=== PATIENT | male | born 1970 | race Caucasian/White ===

== ENCOUNTER 2023-10-04 09:58 | Emergency (ER) | payer OTHER, SELFPAY ==
--- NOTE | ~2023-10-04 | XR_ITS ---
EXAMINATION: XR ANKLE, RIGHT CLINICAL INFORMATION: Injury, pain. COMPARISON: None available. TECHNIQUE: AP, lateral, and mortise views of the right ankle. FINDINGS: Chronic appearing fracture/deformity at the base of the fifth metatarsal on the lateral view. Well corticated ossific fragments adjacent to the medial malleolus, lateral malleolus and lateral surface of the calcaneus on the oblique view. Ankle mortise is in anatomic alignment. Moderate multifocal degenerative arthrosis. Small dorsal calcaneal spurs. Diffuse soft tissue swelling. XR/XR ankle RT min 3V IMPRESSION: 1. Well corticated ossific fragments adjacent to the medial malleolus, lateral malleolus and lateral surface of the calcaneus on the oblique view are indeterminate and could be sequela of prior trauma. Correlate for point tenderness. 2. Chronic fracture/deformity at the base of the fifth metatarsal. 3. Soft tissue swelling.
[2023-10-04 10:36] VITALS: BP 146/92; PULSE 72; RESP 16; TEMP 36.6; O2SAT 97; BMI 41.7
[2023-10-04] MEDS: Ibuprofen 600 MG TABLET PO (10:41)
[2023-10-04] MEDS: Acetaminophen 325 MG TABLET 975 MG PO (10:41)
--- NOTE | 2023-10-04 12:11 | ED_ITS ---
HPI - General Adult General Chief complaint: Extremity Injury, Lower Stated complaint: ankle inj at work Time Seen by Provider: 10/04/23 12:10 Source: patient Mode of arrival: ambulatory Limitations: no limitations History of Present Illness HPI narrative: Patient is a 53 year old assigned male at with no reported medical history presenting to the emergency department today with right ankle pain. 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 Patient states that he felt and heard pops in the right ankle. Patient denies any loss of consciousness or head strike. Patient denies any dizziness, lightheadedness, abdominal pain, nausea, vomiting, fever, chills, blurry vision, double vision, loss of vision, chest pain, difficulty breathing, shortness of breath, back pain, night sweats, pain with urination, increased urinary frequency, increased urinary urgency, blood in his urine or stool, syncope or a near syncopal episode, bowel incontinence, bladder incontinence, bowel retention, bladder retention, or any other complaints at this time. Onset (ago): hour(s) Location: right and lower extremity Severity: mild Severity scale (1-10): 4 Relieving factors: immobilization Exacerbating factors: movement Associated symptoms: denies other symptoms Treatments prior to arrival: none Related Data Allergies Allergy/AdvReac Type Severity Reaction Status Date / Time No Known Allergies Allergy Verified 10/04/23 10:39 Review of Systems Constitutional: Constitutional: Reports no additional constitutional complaints, Denies chills, Denies fever(s) and Denies night sweats Eyes: Eyes: Reports no additional eye complaints, Denies blurry vision, Denies change in vision, Denies diplopia, Denies eye discharge, Denies loss of vision and Denies eye pain ENT: Denies dizziness Cardiovascular: Cardiovascular: Reports no additional cardiovascular complaints, Denies chest pain, Denies lightheadedness, Denies Loss of Consciousness and Denies dyspnea Respiratory: Respiratory: Reports no additional respiratory complaints and Denies dyspnea Gastrointestinal: Gastrointestinal: Reports no additional gastrointestinal complaints, Denies abdominal pain, Denies melena, Denies hematochezia, Denies change in bowel habits and Denies change in stool character Genitourinary: Genitourinary: Reports no additional male genitourinary comp laints, Denies hematuria, Denies oliguria, Denies difficulty urinating, Denies dysuria, Denies urinary frequency, Denies urinary hesitancy, Denies urinary incontinence and Denies urinary urgency Musculoskeletal: Musculoskeletal: Reports no additional musculoskeletal complaints, Denies numbness and Denies tingling Comments: right ankle pain Neurologic: Denies dizziness, Denies loss of vision, Denies numbness and Denies tingling Psychiatric: Psychiatric: Reports no additional psychiatric complaints Endocrine: Endocrine: Reports no additional endocrine complaints Hematologic/Lymphatic: Hematologic/Lymphatic: Reports no additional hematologic/lymphatic complaints Allergic/Immunologic: Allergic/Immunologic: Reports no additional allergic/immunologic complaints PMFSH Past Medical History Attestation statement: The following information was validated with the patient. Source: old records reviewed and nursing notes reviewed Social History Social History Advance Directives: No Advance Directives Information Provided: No Physical Exam ED Vital Signs: Vital Signs - 24 hr 10/04/23 10:36 10/04/23 12:46 Temperature 97.9 F 97.9 F Pulse Rate 72 66 Respiratory Rate 16 18 Blood Pressure 146/92 H 142/90 H Pulse Oximetry 97 98 Oxygen Delivery Method Room Air Room Air BMI result Body Mass Index 41.7 Const General: cooperative, no acute distress, alert and awake Nutritional Appearance: well nourished Orientation/consciousness: patient oriented x3 Limitations: no limitations HENMT Head: Yes normal to inspection and Yes atraumatic Ears: hearing grossly normal bilaterally and external ears normal General nose exam: Normal external nose present, no nasal discharge noted and no epistaxis Face and sinus: Yes normal facial exam, No abrasion and No laceration Mouth: Normal oral and palatal mucosa present, no drooling and no muffled voice Eyes General: appearance normal, both eyes and all related structures Periorbital: periorbital findings normal Eyelids: Yes eyelids normal Conjunctivae: conjunctivae normal Pupils: Equal, round and reactive pupils present EOM: EOMs intact bilaterally Neck Neck: Yes normal visual inspection, Yes full ROM and Yes no lymphadenopathy Chest Chest palpation & inspection: normal inspection of the chest Resp Effort & Inspection: normal respiratory effort and able to speak in complete sentences GI Inspection: Yes normal to inspection Neuro General: patient oriented x3 and moves all extremities Cranial nerves: Yes Equal, round and reactive pupils present Cognition (Neuro): normal cognition Motor exam (neuro): 5/5 motor strength present throughout Sensory Exam: Normal double simultaneous stimulation for sensation Coordination: [id number] test normal Extrem Other: pain with ROM of the right ankle. Pain with palpation of the medial and lateral malleolus General: Yes normal to inspection and Yes capillary refill normal Psych Appearance: grossly normal Mental Status: mental status grossly normal Affect: normal affect Attitude: cooperative Thought process: Normal thought process present Thought content: Normal thought content present Insight: Good insight present (Psych) Medications Administered Discontinued Medications Generic Name Dose Route Start Last Admin Trade Name Kristyn PRN Reason Stop Dose Admin Acetaminophen 975 mg 10/04/23 10:39 10/04/23 10:41 Acetaminophen 325 Mg Tablet PO 10/04/23 10:40 975 mg ONCE ONE Administration Ibuprofen 600 mg 10/04/23 10:39 10/04/23 10:41 Ibuprofen 600 Mg Tablet PO 10/04/23 10:40 600 mg ONCE ONE Administration Procedures Orthopedic Splinting/Casting Injury #1: Side: right Lower Extremity Injury Location: ankle Lower Extremity Immobilizer: boot orthosis Other Orthopedic Equipment: crutches Medical Decision Making Medical Decision Making MDM Narrative: Patient is a 53 year old assigned male at with no reported medical history presenting to the emergency department today with right ankle pain. Patient's physical exam was as noted in the physical exam portion of this note. Patient's right ankle x-ray showed ossific fragments adjacent to the medial malleolus, lateral malleolus, and lateral surface of the calcaneus. Patient's clinical presentation is most consistent with right ankle ligamentous injury and associated avulsion / chip fractures. I explained my physical exam findings as well as all test results to the patient. I answered all questions asked by the patient. Patient was placed in a walking boot, without incident. Patient's PMS was intact prior to and after boot placement. I stressed the importance of the patient taking his medication as prescribed. I stressed the importance of the patient following up with his primary care provider and an orthopedic provider. I stressed the importance of the patient returning to the emergency department immediately if his symptoms were to worsen or if he were to develop any dizziness, shortness of breath, difficulty breathing, chest pain, blurry vision, loss of vision, nausea, vomiting, abdominal pain, fever, chills, back pain, or any other complaints. Patient verbalized agreement and understanding with this treatment plan and discharge. Differential Diagnosis Differential Diagnoses: The differential diagnosis associated with the presentation includes Right ankle fracture Right ankle strain Right ankle sprain Right ankle ligament injury Admission/Observation Consideration of admission/observation: Escalation of care including admission/observation considered Patient would have been admitted to the hospital had his work up had any findings where hospital admission was appropriate and his clinical presentation warranted hospital admission. Independent Interpretation I performed an independent interpretation of an: Plain X-Ray Interpretation: My interpretation is in agreement with the radiologist's impression of this imaging study. EXAMINATION: XR ANKLE, RIGHT CLINICAL INFORMATION: Injury, pain. COMPARISON: None available. TECHNIQUE: AP, lateral, and mortise views of the right ankle. FINDINGS: Chronic appearing fracture/deformity at the base of the fifth metatarsal on the lateral view. Well corticated ossific fragments adjacent to the medial malleolus, lateral malleolus and lateral surface of the calcaneus on the oblique view. Ankle mortise is in anatomic alignment. Moderate multifocal degenerative arthrosis. Small dorsal calcaneal spurs. Diffuse soft tissue swelling. XR/XR ankle RT min 3V IMPRESSION: 1. Well corticated ossific fragments adjacent to the medial malleolus, lateral malleolus and lateral surface of the calcaneus on the oblique view are indeterminate and could be sequela of prior trauma. Correlate for point tenderness. 2. Chronic fracture/deformity at the base of the fifth metatarsal. 3. Soft tissue swelling. Dictated By: Loyda Terrazas Signed By: Electronically signed by Loyda Terrazas 10/04/23 1147 Radiology Impression Discussion of test interpretation with radiology: I have reviewed the radiologist's reading. Discharge Plan Discharge Clinical Impression: Ankle fracture Patient Disposition: Home, Self-Care Instructions: Ankle Fracture (DC), Crutch Instructions (ED) Additional Instructions: Follow up with your primary care provider and an orthopedic provider. Return to the emergency department immediately if your symptoms worsen or if you develop any dizziness, shortness of breath, difficulty breathing, chest pain, blurry vision, loss of vision, nausea, vomiting, abdominal pain, fever, chills, back pain, or any other complaints. Referrals: [facility] Family Medicine [Provider Group] (Call to establish and follow up with a primary care provider. If you already have a primary care provider, please follow up with them.) [facility] [Provider Group] [facility] [Provider Group] [facility] [Provider Group] (Call to establish and follow up with an orthopedic provider.) [facility] [Provider Group] (Call to establish and follow up with [facility].) Stand Alone Forms: Work/School Release Interventions: ED Discharge Assessment Last Done: 10/04/23 12:46 Discharge Date/Time: 10/04/23 12:47 Print Language: Malian
[2023-10-04 12:46] VITALS: BP 142/90; PULSE 66; RESP 18; TEMP 36.6; O2SAT 98
== END 2023-10-04 12:47 | disposition home or self-care (01) ==
PROVIDERS: Emergency Provider Student in an Organized Health Care Education/Training Program; PCP Physician Assistant
DX: S82.891A Other fracture of right lower leg, initial encounter for closed fracture (principal); X50.1XXA Overexertion from prolonged static or awkward postures, initial encounter; Y93.89 Activity, other specified; Y92.812 Truck as the place of occurrence of the external cause; Y99.0 Civilian activity done for income or pay
CPT/HCPCS: 73610; 99283

== ENCOUNTER 2023-10-11 07:01 | Outpatient (REF) | payer OTHER, SELFPAY ==
--- NOTE | ~2023-10-11 | XR_ITS ---
EXAMINATION: XR ANKLE, RIGHT CLINICAL INFORMATION: Right ankle pain COMPARISON: 10/04/2023 TECHNIQUE: AP, lateral, and mortise views of the right ankle. FINDINGS: Minor fragmentation adjacent to the medial and lateral malleolus appears chronic. The mortise is intact. No evidence for an acute fracture, dislocation or destructive process. There is chronic fragmentation seen as well, at the base of the fifth metatarsal. There is mild spurring, along the posterior calcaneus at the insertion of the tendon. XR/XR ankle RT min 3V IMPRESSION: Chronic changes noted.
--- NOTE | ~2023-10-11 | XR_ITS ---
EXAMINATION: XR FOOT, RIGHT CLINICAL INFORMATION: Right-sided foot pain COMPARISON: None available. TECHNIQUE: AP, lateral, and oblique views of the right foot. FINDINGS: Chronic deformity base of the right fifth metatarsal noted. The MTP joints are preserved. New fractures are not seen. There is mild spurring along the posterior margin of the calcaneus, at the insertion of the Achilles tendon. XR/XR foot RT 2V IMPRESSION: No acute findings.
== END 2023-10-11 07:02 | disposition home or self-care (01) ==
LOC: HO.HOSX 07:01
PROVIDERS: Visit Provider Physician Assistant
DX: S93.401A Sprain of unspecified ligament of right ankle, initial encounter (principal)
CPT/HCPCS: 73610; 73620; 99202

== ENCOUNTER 2023-10-11 08:17 | Outpatient (AMB) | payer OTHER, SELFPAY ==
[2023-10-11 08:18] VITALS: BMI 41.6
--- NOTE | 2023-10-11 08:18 | A.OFFVIS_ITS ---
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 He states he is using motrin for the pain with good relief. He has been given the boot at the ED which he states he feels stable in. He is also having a little numbness and tingling in his toes. 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 He was seen at ED where he was given a boot which provided him relief. He currently states he has pain in his right ankle and rates the pain as 3 on the scale of 0-10. He also c/o mild numbness and tingling in his toes. He finds good relief with Motrin. 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 Review of Systems Const All systems reviewed & are unremarkable except as noted in HPI and below Physical Exam Vital Signs: BMI result Body Mass Index 41.6 Const General: cooperative, healthy appearing, comfortable, no acute distress, well developed and alert Orientation/consciousness: patient oriented x3 HEENT Head: Yes normal to inspection, Yes normocephalic and Yes atraumatic Eyes General: appearance normal, both eyes and all related structures Resp Effort & Inspection: normal respiratory effort and able to speak in complete sentences Cardio Rate: regular rate Peripheral pulses: Peripheral pulses 2+ throughout GI Palpation (GI): Soft to palpation Skin Lesions: no lesions Rashes: no rashes Neuro General: patient oriented x3 Extrem Other: Right ankle: Normal to inspection with mild swelling over the lateral malleolus with tenderness along the soft tissues. No discomfort along the posterior aspect of the ankle, no deformity along the Achilles tendon, negative Morrison?s. No pain along the syndesmosis or anterior tibia. He does have mild tenderness along the base of the 5th metatarsal. No laxity, NVI. Results Reviewed Results Reviewed: XR ankle RT min 3V IMPRESSION: 1. Well corticated ossific fragments adjacent to the medial malleolus, lateral malleolus and lateral surface of the calcaneus on the oblique view are indeterminate and could be sequela of prior trauma. Correlate for point tenderness. 2. Chronic fracture/deformity at the base of the fifth metatarsal. 3. Soft tissue swelling. Xrays were obtained in the office today and personally reviewed by me of the right foot show age indeterminate fracture at the base of the 5th metatarsal. Assessment & Plan Assessment & Plan (1) Right ankle sprain: Code(s): S93.401A - Sprain of unspecified ligament of right ankle, initial encounter Category: Medical Plan We discussed options which include PT, NSAIDs and continued use of the boot. He will proceed with PT and NSAIDs. WBAT with the boot and wean from the boot as symptoms allow with PT. If symptoms persist, the patient will contact me, otherwise, PRN. Orders: Orders PT Evaluation and Treatment 10/11/23 S93.401A - Sprain of unspecified ligament of right ankle, initial encounter XR ankle RT min 3V 10/11/23 M25.571 - Pain in right ankle and joints of right foot XR foot RT 2V 10/11/23 M79.671 - Pain in right foot Patient Instructions: Scribed for July Webb PA-C, by Erik Hill medical records technician, on 10/11/2023 at 8:15 AM EST. I, July Webb PA-C, have personally reviewed and agree with the information entered by the scribe. Coding Level of Care Code New Pt Level 3 (13895) Diagnoses Right ankle sprain S93.401A
== END 2023-10-11 12:14 | disposition home or self-care (01) ==
PROVIDERS: PCP Physician Assistant; Visit Provider Physician Assistant
DX: S93.401A Sprain of unspecified ligament of right ankle, initial encounter (principal)
CPT/HCPCS: 99203

== ENCOUNTER 2023-11-12 09:00 | Outpatient (RCR) | payer OTHER, SELFPAY ==
--- NOTE | 2023-10-24 10:46 | MHC.PT.EP ---
[facility] [place] Office [place] Office [place] Office [address] Tyson Villafuerte [address] [phone] F: [phone] F: [phone] F: [phone] F: [phone] Physical Therapy Plan of Care Date of Evaluation: 10/22/23 Date of Surgery: Diagnosis: R ligament ankle sprain, achilles Assessment: Pt is a 53yo male referred to PT for R ankle sprain with achilles pain. Skilled PT indicated to progress patient safely through rehabilitation of ankle with goal to return to work with reduced risk for re-injury. Current impairments that will be addressed in POC include pain/swelling, reduced ROM and strength, abnormal gait. Pt is motivated to participate and in agreement with POC. Frequency and Duration: The patient will be seen 2x/week, x 4 weeks Short Term Goals: 1. Improve AROM R ankle 5 degrees DF in 2 weeks. 2. Improve R ankle eversion MMT 1/2 grade in 2 weeks. 3. In 2 weeks, patient will be I with phase 1 HEP including gentle stretching, and ankle exercise. 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 Pt will be able to go up and down steps without difficulty in 4 weeks with 1 rail. 2. In 4 weeks, improve LEFS score by >= 10 points indicating reduced pain and improved function overall. 3. In 4 weeks, patient will be able to ambulate with normal gait pattern and maintain SLS x 10 sec R LE. Treatment Plan: Modalities to reduce pain, spasms and effusion. Manual therapy to restore motion and function. Therapeutic exercise to improve strength and flexibility. Neuromuscular re-education for posture and balance. Therapeutic activities to return to functional activities of daily living. Electronically signed by: Mary Lopez PT, DPT Please sign and return to therapist. Thank you for your referral.
--- NOTE | 2024-01-08 11:32 | MHC.PT.DC ---
[facility] [place] Office [place] [facility] [place] [facility] [address] Tyson Villafuerte [address] [phone] F: [phone] F: [phone] F: [phone] F: [phone] Physical Therapy Discharge Report Diagnosis: R ligament ankle sprain, achilles Date of Surgery: Date of Evaluation: 10/22/23 Date of Discharge: 12/10/23 Treatments to Date: 6 Cancellations to Date: 2 No Shows to Date: Discharge Status: Independent with HEP Recommend MD Follow-up Discharge Summary: Pt participated in 6 PT treatment sessions for R ankle pain s/p injury at work. Addressed ankle stability, and maintaining ROM with gentle exercises as he was still in protection phase after injury. Pt continued to have pain and instability and reverted back to wearing walking boot until f/u with ortho to discuss MRI scheduled on 12/03/23. Pt did not return to PT following treatment on 11/12/23. D/C at this time due to patient reaching a plateau at this time and awaiting results from MRI prior to resuming PT. Thank you for this referral. Electronically signed by: Mary Lopez PT, DPT Please sign and return to therapist. Thank you for your referral.
== END 2024-01-08 11:41 | disposition home or self-care (01) ==
LOC: HO.PT 09:00
PROVIDERS: PCP Physician Assistant; Visit Provider Physician Assistant
DX: S93.401D Sprain of unspecified ligament of right ankle, subsequent encounter (principal)
CPT/HCPCS: 97035; 97110; 97116; 97140; 97161

== ENCOUNTER 2023-11-13 12:59 | Outpatient (AMB) | payer OTHER, SELFPAY ==
--- NOTE | 2023-11-13 13:16 | MHC.OFFVIS ---
Vital Signs 11/13/23 13:24 Height 6 ft Weight 307 lb BMI 41.6 Intake Visit Reasons: OV-Right ankle injury-DOI 10/04/23-follow up Intake Note: Heath a 53 year old male who presents today for a follow up s/p right ankle injury, DOI 10/04/23. Patient reports that he has been attending PT for about 4 weeks and continues to have soreness in his achilles area. He was advised by PT to return wearing boot and follow up with orthopedics. He states his pain has improved since his injury howevery however not. pain burning achilles. Allergies No Known Allergies Allergy (Verified 11/13/23 13:25) HPI HPI OV-Right ankle injury-DOI 10/04/23-follow up: Details: 53-year-old male who returns to the office today for a follow-up of right ankle injury, 10/04/23. He states he has improvement in his pain however he continues to have a burning pain and soreness in his Achilles area that is aggravated with ambulation and weight bearing. He has been attending physical therapy for 4 weeks without benefits. He was advised by PT to return wearing the boot and follow up with our office. 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 No swelling but tenderness along the calcaneus at the incision point at Achilles. No palpable defect over the Achilles. Negative Seadrift. NVI. Assessment & Plan Assessment & Plan (1) Right ankle sprain: Code(s): S93.401A - Sprain of unspecified ligament of right ankle, initial encounter Category: Medical (2) Right Achilles tendinitis: Code(s): M76.61 - Achilles tendinitis, right leg Category: Medical Plan He will continue weight bearing as tolerated. He was given inserts in PT which I encourage using and he will start using the thickest wedge and layer down each week with stability to avoid to be stressed out at Achilles. An MRI of the right ankle was also ordered to further evaluate and assess the Achilles tendon and surrounding structures. He will remain out of work till I see him back once the scan is complete. Orders: Orders MR ankle RT wo con Today M76.61 - Achilles tendinitis, right leg, S93.401A - Sprain of unspecified ligament of right ankle, initial encounter Patient Instructions: Scribed for July Webb PA-C, by Erik Hill medical associate, on 11/13/2023 at 1:00 PM EST.? I, July Webb PA-C, have personally reviewed and agree with the information entered by the scribe. Coding Level of Care Code Est Pt Level 3 (62556) Diagnoses Right ankle sprain S93.401A Right Achilles tendinitis M76.61
[2023-11-13 13:24] VITALS: BMI 41.6
== END 2023-11-13 13:40 | disposition home or self-care (01) ==
PROVIDERS: PCP Physician Assistant; Visit Provider Physician Assistant
DX: S93.401A Sprain of unspecified ligament of right ankle, initial encounter (principal); M76.61 Achilles tendinitis, right leg
CPT/HCPCS: 99213

== ENCOUNTER → 2023-11-13 12:59 | Outpatient (BNVA) | payer OTHER, SELFPAY | PROVIDERS: PCP Physician Assistant; Visit Provider Physician Assistant ==

== ENCOUNTER 2023-12-03 07:03 | Outpatient (REF) | payer OTHER, SELFPAY ==
--- NOTE | ~2023-12-03 | MR_ITS ---
EXAMINATION: MR ANKLE WITHOUT CONTRAST, RIGHT CLINICAL INFORMATION: Achilles tendinitis. COMPARISON: Right ankle and foot radiographs dated 10/11/2023. TECHNIQUE: MRI of the ankle was performed using routine sequences on a high-field scanner. FINDINGS: ACHILLES TENDON: Achilles tendon is thickened (1 cm) at the insertion on the calcaneus with a small longitudinal partial tear of the more lateral undersurface fibers involving approximately 5-10% of the tendon cross-section. There is associated retrocalcaneal bursitis and mild enthesopathic spurring. Mild paratenonitis. OTHER TENDONS: The peroneus longus is thinned and irregular at its distal, plantar segment, most consistent with a chronic partial tear. The tendon is thickened proximally between the peroneal tubercle and calcaneus, consistent with a site of tendinosis. Mild peroneus brevis tendinosis distal to the peroneal tubercle. Extensor and medial flexor tendons are normal. LIGAMENTS: Anterior talofibular ligament is absent with a small osseous fragment at the anterior margin of the lateral malleolus, most consistent with chronic changes of a complete ligament tear. Calcaneofibular and posterior talofibular ligaments are intact. Distal tibiofibular, deltoid, and spring ligaments are normal. BONE AND ARTICULAR CARTILAGE: Moderate size marginal osteophytes are present at the talocrural joint. There is mild nonuniform chondral thinning at the anterior third of the tibial plafond and at the posteromedial and posterolateral margins of the talar dome. More minimal osteoarthritis in the subtalar joint at the posterior facet. Chopart joint is unremarkable. There is a chronic osseous fragment at the fifth metatarsal base which may correspond to an old avulsion fracture. The margins of this fragment are irregular and hypertrophied with associated edema signal. No acute fractures are identified in this region. There is uvgs-py-cwzdzvye multifocal osteoarthritis in the midfoot at the tarsometatarsal joints, characterized by cartilage loss with marginal osteophytes and subchondral cystic change. There is degenerative arthritis at the articulation between the metatarsal bases. Cortical sclerosis and thickening are evident at the fourth metatarsal shaft with associated intraosseous edema, partially imaged on this study, potentially the result of an old stress fracture. JOINT FLUID AND SOFT TISSUES: No joint effusion. Subcutaneous soft tissues are normal. PLANTAR FASCIA: Normal. SINUS TARSI AND TARSAL TUNNEL: Normal. MR/MR ankle RT wo con IMPRESSION: 1. Moderate Achilles tendinosis with a small longitudinal partial tear at the insertion. 2. 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 3. Chronic partial tear of the peroneus longus tendon with mild peroneus brevis tendinosis. 4. 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 5. Chronic osseous fragment at the fifth metatarsal base is likely due to an old avulsion fracture.
== END 2023-12-03 07:04 | disposition home or self-care (01) ==
LOC: HO.MRI 07:03
PROVIDERS: PCP Physician Assistant; Visit Provider Physician Assistant
DX: S93.401A Sprain of unspecified ligament of right ankle, initial encounter (principal); M76.61 Achilles tendinitis, right leg
CPT/HCPCS: 73721

== ENCOUNTER 2023-12-24 14:05 | Outpatient (AMB) | payer OTHER, SELFPAY ==
--- NOTE | 2023-12-24 14:35 | A.OFFVIS_ITS ---
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 Review of Systems Const All systems reviewed & are unremarkable except as noted in HPI and below Physical Exam Resp Effort & Inspection: normal respiratory effort and able to speak in complete sentences Telehealth Telehealth Telehealth Platform: Telephone Location of provider rendering services: practice address Location of patient: address on file Patient Identification confirmed using: Name, : Yes Telehealth method: voice only Patient verbally consented to treatment: Yes Patient verbally consented to billing insurance company: Yes Patient informed of any privacy concerns related to visit: Yes Minutes spent on Phone/Video with Pt.: 10 Results Reviewed Results Reviewed: MR ankle RT wo con 12/03/23 IMPRESSION: 1. Moderate Achilles tendinosis with a small longitudinal partial tear at the insertion. 2. 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 3. Chronic partial tear of the peroneus longus tendon with mild peroneus brevis tendinosis. 4. 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 5. Chronic osseous fragment at the fifth metatarsal base is likely due to an old avulsion fracture. Assessment & Plan Assessment & Plan (1) Right Achilles tendinitis: Code(s): M76.61 - Achilles tendinitis, right leg Category: Medical (2) Right ankle sprain: Code(s): S93.401A - Sprain of unspecified ligament of right ankle, initial encounter Category: Medical Plan We discussed options the restults of the MRI findings along with options. I explained the extent of the tendon and ligament injuries and I recommend PT to work on strength and stability to improve functional ability. If symptoms persist or worsen I would recommend referral to foot and ankle specialist. he is content with this plan. Coding Level of Care Code Tele Est Pt Level 3 (80039) Diagnoses Right Achilles tendinitis M76.61 Right ankle sprain S93.401A
== END 2023-12-24 14:39 | disposition home or self-care (01) ==
LOC: HO.HOS 14:05
PROVIDERS: PCP Physician Assistant; Visit Provider Physician Assistant
DX: M76.61 Achilles tendinitis, right leg (principal); S93.401A Sprain of unspecified ligament of right ankle, initial encounter
CPT/HCPCS: 99213

== ENCOUNTER → 2023-12-24 14:05 | Outpatient (BNVA) | payer OTHER, SELFPAY | PROVIDERS: PCP Physician Assistant; Visit Provider Physician Assistant ==

== ENCOUNTER 2024-02-17 18:39 | Emergency (ER) | payer OTHER, SELFPAY ==
--- NOTE | ~2024-02-17 | XR_ITS ---
EXAMINATION: XR KNEE, LEFT CLINICAL INFORMATION: Knee pain. COMPARISON: None available. TECHNIQUE: Four views of the left knee. FINDINGS: No fracture. No dislocation. No joint effusion. No focal bone lesion or abnormal periosteal reaction. Femoral tibial patellofemoral joints are normal. XR/XR knee LT 3V IMPRESSION: Normal left knee. Electronically signed by: Donald Jones MD 02/17/2024 09:02 PM EDT
--- NOTE | 2024-02-17 19:09 | ED.LOWEXIN ---
HPI - Extremity Injury (Lower) General Chief Complaint: Extremity Injury, Lower Stated Complaint: left knee inj at work Time Seen by Provider: 02/18/24 00:42 Source: patient Mode of arrival: ambulatory Limitations: no limitations History of Present Illness HPI Narrative: Patient is a 53-year-old male who presents emergency department for evaluation. 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 Reports that his knee ?buckled?. He had a near fall but was able to catch himself. Did not have any blunt trauma to the knee. No associated head strike or loss consciousness. He denies having any history of prior injury or pain to this knee. Pain is diffuse throughout the knee but primarily to the medial and lateral aspect with radiation down his foot. Knee is held in near full extension as point of most comfort, reports severe worsening of pain medial and laterally if he attempts to fully extend it or flex to any degree. Of note he has recently been treated approximately 2 months ago for Achilles tendinitis on the right. Related Data Home Medications ?Medication ?Instructions ?Recorded ?Confirmed citalopram 20 mg tablet 20 mg PO DAILY 10/11/23 zolpidem 10 mg tablet 10 mg PO BEDTIME PRN 10/11/23 Allergies Allergy/AdvReac Type Severity Reaction Status Date / Time No Known Allergies Allergy Verified 02/17/24 19:14 Review of Systems Review of Systems: Yes all other systems are reviewed and are negative PMFSH Past Medical History Attestation statement: The following information was validated with the patient. 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 No acute distress.?Normal affect. Neck: Normal inspection.? Neck supple.?? CVS: Heart sounds normal. Normal heart rate and rhythm.? Pulses normal.?? Respiratory: No respiratory distress.? Lung sounds clear to auscultation bilaterally?? Abdomen: Soft and non-tender. Normoactive bowel sounds. No pulsatile mass.?? Skin: Skin warm and dry.? Normal skin color.? ? Extremities: No lower extremity edema.? No calf ttp. No left knee effusion. 2+ DP/PT pulse. Anterior drawer test negative, posterior drawer test negative, positive valgus and varus stress test. Neuro: Moves all extremities spontaneously. Sensation intact bilaterally. Ambulates with normal antalgic gait. Course Course Course Narrative: This is an RME: Additional HPI, ROS, PE not included below will be deferred to primary provider. RME assessment and note performed by: Page Jimenez PA-C This is a [id number]-male with no known medical problems, who presents to the ER with a complaints of left knee pain. Reports he slipped outside his shower at work at 05:15PM. Reports knee has been giving out on him. Did not hit his head or lose consciousness. Plan: xray knee Medical Decision Making Medical Decision Making MDM Narrative: Patient is a 53-year-old male presents emergency department for evaluation of left knee pain after a work-related injury as per HPI. Extremity is neurovascularly intact distally. X-ray obtained does not show evidence of acute fracture or dislocation. Discussed with patient can not completely exclude ligamentous or meniscus injury with XR imaging as this is not the modality of choice. He has no laxity on examination he does have tenderness medially and laterally, no obvious effusion. Quadriceps is intact, no evidence of acute rupture. We did discuss the possibility of compensatory weakness/inflammation on the left light of his recent right Achilles tendonitis, but again as mentioned he has not noticed any prior pain or weakness to this knee. Patient to be placed in a knee immobilizer and provided with crutches, discussed conservative treatment in addition to acetaminophen/ibuprofen and outpatient follow-up with orthopedics. Discussed worrisome signs and symptoms that would warrant re-evaluation. All questions answered. Stable for discharge Differential Diagnosis Differential Diagnoses: The differential diagnosis associated with the presentation includes (See narrative above) Independent Interpretation I performed an independent interpretation of an: Plain X-Ray (No acute fracture) Radiology Impression Discussion of test interpretation with radiology: I have reviewed the radiologist's reading. Radiologist Impression: XR/XR knee LT 3V IMPRESSION: Normal left knee. External Record Review External record reviewed: Outpatient record Prescription Management I considered prescription management with: Pain Medication Discharge Plan Discharge Clinical Impression: Knee sprain Qualifiers: Encounter type: initial encounter Laterality: left Patient Disposition: Home, Self-Care Instructions: Crutch Instructions (ED), R.I.C.E. Treatment (ED) Additional Instructions: You can take ibuprofen 200 mg, 3 tablets (600mg) every 6-8 hours as needed for pain, in addition to Tylenol 500 mg, 2 tablets (1,000mg) every 4-6 hours as needed for pain, but not to exceed 3 doses daily (3,000mg).? Leave the knee immobilizer in place and use crutches while weight-bearing as tolerated. As discussed you may follow-up with orthopedics for further evaluation and treatment, you may require a course of physical therapy. Discussed with your employer any protocols they have in place for work-related injuries. You may return to emergency department any new or worsening symptoms or concerns. Prescriptions: No Action zolpidem 10 mg tablet 10 mg PO BEDTIME PRN citalopram 20 mg tablet 20 mg PO DAILY Referrals: [facility] [Provider Group] Rodrigo Fam PA-C [Primary Care Provider] - Print Language: Lao
[2024-02-17 19:13] VITALS: BP 157/103; PULSE 84; RESP 14; TEMP 36.8; O2SAT 99; BMI 38.7
[2024-02-17 22:55] VITALS: BP 144/92; PULSE 79; RESP 16; TEMP 36.4; O2SAT 98
[2024-02-18 01:49] VITALS: BP 150/92; PULSE 84; RESP 18; TEMP 37; O2SAT 98
== END 2024-02-18 01:52 | disposition home or self-care (01) ==
PROVIDERS: Emergency Provider Emergency Medicine; PCP Physician Assistant
DX: S83.92XA Sprain of unspecified site of left knee, initial encounter (principal); W18.49XA Other slipping, tripping and stumbling without falling, initial encounter; Y93.E1 Activity, personal bathing and showering; Y92.59 Other trade areas as the place of occurrence of the external cause; Y99.0 Civilian activity done for income or pay
CPT/HCPCS: 73562; 99282; 99283

== ENCOUNTER 2024-02-24 12:59 | Outpatient (REF) | payer OTHER, SELFPAY ==
--- NOTE | ~2024-02-24 | XR_ITS ---
EXAMINATION: XR KNEE, RIGHT CLINICAL INFORMATION: M25.561 - Pain in right knee COMPARISON: No prior. TECHNIQUE: Single view of the right knee. FINDINGS: No fracture, dislocation, or suspicious bone lesion. There is normal alignment. Mild joint space narrowing medial and lateral compartments with mild to moderate marginal osteophytes of the femoral condyles. Osteophytes seen at the patellofemoral joint. The patella appears somewhat laterally situated. Soft tissues appear normal. XR/XR knee RT 1V IMPRESSION: 1. No acute findings right knee. 2. Mild to moderate tricompartmental degenerative arthrosis. Electronically signed by: Heath Corrales MD 05/04/2024 12:53 PM [facility]
--- NOTE | ~2024-02-24 | XR_ITS ---
EXAMINATION: XR KNEE, LEFT CLINICAL INFORMATION: M25.562 - Pain in left knee COMPARISON: 02/17/2024. TECHNIQUE: AP and patellofemoral views of the left knee. FINDINGS: No fracture, dislocation, or suspicious bone lesion. There is normal alignment. Mild joint space narrowing medial and lateral compartments with mild to moderate marginal osteophytes of the femoral condyles. Mild arthritis present in the patellofemoral joint, especially the lateral facet. No abnormal patellar tilt on the patellofemoral view. Soft tissues appear normal. XR/XR knee LT 2V IMPRESSION: 1. No acute findings left knee. 2. Mild tricompartmental osteoarthritis. Electronically signed by: Heath Corrales MD 05/04/2024 12:56 PM [facility]
== END 2024-02-24 13:00 | disposition home or self-care (01) ==
LOC: HO.XRAY 12:59
PROVIDERS: PCP Physician Assistant; Visit Provider Physician Assistant
DX: M23.92 Unspecified internal derangement of left knee (principal); S76.102A Unspecified injury of left quadriceps muscle, fascia and tendon, initial encounter; M17.0 Bilateral primary osteoarthritis of knee
CPT/HCPCS: 73560; 99212

== ENCOUNTER → 2024-02-24 13:03 | Outpatient (BNV) | payer OTHER, SELFPAY | PROVIDERS: PCP Physician Assistant; Visit Provider Radiology Diagnostic Radiology | DX: M25.561 Pain in right knee (principal); M25.562 Pain in left knee | CPT/HCPCS: 73560 ==

== ENCOUNTER 2024-02-24 13:38 | Outpatient (AMB) | payer OTHER, SELFPAY ==
--- NOTE | 2024-02-24 13:39 | MHC.OFFVIS ---
Vital Signs 02/24/24 13:47 Height 6 ft Weight 285 lb BMI 38.6 Handedness Right Intake Visit Reasons: NewProb- LT knee injury, DOI 02/17/24 Intake Note: Heath is a 53 year old male who presents today for an ED follow up of his left knee injury S/P slip and fall DOI 02/17/2024. Patient reports he is feeling a bit sore. He mentioned that he slipped in the shower which lead him to twist his left knee. Patient finds relief with a knee brace sleeve, NSAIDs, icing and rest. Allergies No Known Allergies Allergy (Verified 02/24/24 13:45) Medication List - Last Reconciled 02/24/24 by July Webb PA-C citalopram 20 mg PO DAILY semaglutide (weight loss) (Wegovy) mg subcut zolpidem 10 mg PO BEDTIME PRN HPI HPI [employer]Prob- LT knee injury, DOI 02/17/24: Details: 53-year-old male who presents to the office today for an ED follow-up of left knee injury, 02/17/24. He reports he ran on a treadmill when he felt buckling as well as soreness and later slipped in the shower due to his knee giving out, sustaining a fall. He currently states he has pain in his knee that radiates down to his leg. He finds relief with a knee brace sleeve, NSAIDS, icing and rest. 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 Slight tenderness with weakness over the quad tendon and significant tenderness with swelling over the medial jointline. Full ROM with crepitus. Negative Dale?s. No ligamentous laxity. NVI. ? Assessment & Plan Assessment & Plan (1) Internal derangement of left knee: Code(s): M23.92 - Unspecified internal derangement of left knee Category: Medical (2) Injury of left quadriceps femoris muscle: Code(s): S76.102A - Unspecified injury of left quadriceps muscle, fascia and tendon, initial encounter Category: Medical Plan Dr. Caban was available to see the patient with me today. We discussed the extent of his injury which is likely a partial quad tear and meniscal cyst. An STAT MRI of the left knee was ordered to further evaluate the extent of her injury. She will remain out of work till follow-up pending MRI. Orders: Orders MR knee LT wo con 02/24/24 M23.92 - Unspecified internal derangement of left knee, S76.102A - Unspecified injury of left quadriceps muscle, fascia and tendon, initial encounter Patient Instructions: Scribed for July Webb PA-C, by Erik Hill mobile paramedical examiner, on 02/24/2024 at 1:45 PM EST.? I, July Webb PA-C, have personally reviewed and agree with the information entered by the scribe. Coding Level of Care Code Est Pt Level 3 (83295) Complex EM visit Add On G2211 Diagnoses Internal derangement of left knee M23.92 Injury of left quadriceps femoris muscle S76.102A
[2024-02-24 13:47] VITALS: BMI 38.6
== END 2024-02-24 14:11 | disposition home or self-care (01) ==
PROVIDERS: PCP Physician Assistant; Visit Provider Physician Assistant
DX: M23.92 Unspecified internal derangement of left knee (principal); S76.102A Unspecified injury of left quadriceps muscle, fascia and tendon, initial encounter
CPT/HCPCS: 99213; G2211

== ENCOUNTER 2024-03-05 14:41 | Outpatient (REF) | payer OTHER, SELFPAY ==
--- NOTE | ~2024-03-05 | MR_ITS ---
EXAMINATION: MR KNEE WITHOUT CONTRAST, LEFT CLINICAL INFORMATION: Internal derangement of the left knee. COMPARISON: X-rays of the left knee February 2024. TECHNIQUE: MRI of the knee without contrast was performed using routine sequences on a high-field scanner. FINDINGS: MENISCI: Medial Meniscus: There is attenuation, blunting and irregularity of the free edge of the posterior horn. There is a partially detached meniscal fragment extending medially and cephalad overlying the meniscal root. Additional blunting of the body of the meniscus. Findings indicative of tearing of the body and posterior horn with a partially detached meniscal fragment. Lateral Meniscus: Intact LIGAMENTS: Cruciate: Intact Collateral: Intact EXTENSOR MECHANISM: Intact ARTICULAR CARTILAGE/BONE: Patellofemoral Compartment: There is nonuniform up to high-grade cartilage loss throughout the distal two-thirds portion of the lateral facet and median ridge of the patella with small subchondral cysts. Minimal cartilage heterogeneity of the medial facet. Mild cartilage heterogeneity of the central sulcus of the trochlea. Findings indicative of mild-moderate patellofemoral arthrosis. Medial Compartment: Normal Lateral Compartment: Normal JOINT FLUID AND BURSAE: There is a small joint effusion and synovitis. MR/MR knee LT wo con IMPRESSION: 1. Tear of the posterior horn and body of the medial meniscus with an associated partially detached meniscal fragment. 2. Mild-moderate patellofemoral arthrosis. 3. Joint effusion and synovitis. Electronically signed by: Derick Pat MD 03/05/2024 03:43 PM EDT
== END 2024-03-05 14:42 | disposition home or self-care (01) ==
LOC: HO.MRI 14:41
PROVIDERS: PCP Physician Assistant; Visit Provider Physician Assistant
DX: M23.92 Unspecified internal derangement of left knee (principal); S76.102A Unspecified injury of left quadriceps muscle, fascia and tendon, initial encounter
CPT/HCPCS: 73721

== ENCOUNTER 2024-03-20 12:11 | Outpatient (AMB) | payer OTHER, SELFPAY ==
--- NOTE | 2024-03-20 12:22 | A.OFFVIS_ITS ---
Intake Visit Reasons: OV-LT knee MRI review-discuss treatment options Intake Note: Heath is a 53 year old male who presents today for a follow up of his left knee, on 02/17/24 sustained a slip and fall in the shower which resulted in a twisting injury of the left knee. Patient presents today for STAT MRI review. Patient states that he has soreness and his leg sindhu at times. Allergies No Known Allergies Allergy (Verified 03/20/24 12:24) HPI HPI OV-LT knee MRI review-discuss treatment options: Details: Heath is a 53 year old male who presents today for a follow up of his left knee, on 02/17/24 sustained a slip and fall in the shower which resulted in a twisting injury of the left knee. Patient presents today for STAT MRI review. Patient states that he has left knee pain. He states his knee feels like it is going to give way. 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 Resp Other: No audible wheezing Effort & Inspection: normal respiratory effort Back/Spine/Pelvis Cervical Spine: normal cervical lordosis Skin General skin exam: no rashes or lesions noted Neuro General: no focal motor deficits Extrem Other: Left knee with medial Dale's and medial compartment tenderness to palpation. No effusion. Full range of motion. Psych Appearance: grossly normal and well kempt Mental Status: mental status grossly normal Speech and movement: Normal speech and movement present Affect: normal affect Attitude: cooperative Results Reviewed Results Reviewed: I personally reviewed the MR images. IMPRESSION: 1. Tear of the posterior horn and body of the medial meniscus with an associated partially detached meniscal fragment. 2. Mild-moderate patellofemoral arthrosis. 3. Joint effusion and synovitis. 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 Given his clinical presentation here, his MRI and his occupation I recommend left knee arthroscopy. I described the procedure to him including the risks, benefits and alternatives. I explained the possibility of incomplete symptom resolution as well as the potential for intraoperative findings of arthritis and that this can decrease outcomes. By expectation however is that this will alleviate his symptoms and allow him to return to work without limitations. Coding Level of Care Code Est Pt Level 4 (10220) Diagnoses Tear of medial meniscus of left knee S83.242A
== END 2024-03-20 13:00 | disposition home or self-care (01) ==
PROVIDERS: PCP Physician Assistant; Visit Provider Orthopaedic Surgery
DX: S83.242A Other tear of medial meniscus, current injury, left knee, initial encounter (principal)
CPT/HCPCS: 99214

== ENCOUNTER → 2024-03-20 12:11 | Outpatient (BNVA) | payer OTHER, SELFPAY | PROVIDERS: PCP Physician Assistant; Visit Provider Orthopaedic Surgery | DX: S83.242A Other tear of medial meniscus, current injury, left knee, initial encounter (principal) | CPT/HCPCS: 99212 ==

== ENCOUNTER 2024-04-15 07:31 | Day surgery (SDC) | payer OTHER, SELFPAY ==
--- NOTE | 2024-04-14 09:40 | P.CONAN_ITS ---
Documented by User: Cary Carlton NP 04/14/24 09:40 HPI - Anesthesia Eval Consult details Narrative: 53yo M for Left Knee Arthroscopy Anesthesia Pre-Procedure Meds Is the patient on any of the following meds?: GLP1/DPP4 PMFSH Active Problems Active Problems: All Active Problems Tear of medial meniscus of left knee (Acute) Injury of left quadriceps femoris muscle (Acute) Internal derangement of left knee (Acute) Right Achilles tendinitis (Acute) Right ankle sprain (Acute) Surgical History Surgical History (Updated 04/15/24 @ 08:32 by Gale Wallace RN) Hx of appendectomy Hx of laparoscopic gastric banding Social History Social History (Updated 02/24/24 @ 13:46 by Alexandra Borjas) Alcohol intake: never Patient Tobacco Use Status: Never used Tobacco Use of substances other than those prescribed or required for medical reasons: No Are you DNR?: No Advance Directives: No Advance Directives Information Provided: Yes Advance Directives on File: No Recently lost weight without trying: No Nutrition Risks: No Nutritional Risk Poor oral hygiene: No Current occupational status: employed 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, 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 Meds Allergies Allergy/AdvReac Type Severity Reaction Status Date / Time No Known Allergies Allergy Verified 03/20/24 12:24 Home Medications ?Medication ?Instructions ?Recorded ?Confirmed ?Last Taken ?Type citalopram 20 mg tablet 20 mg PO DAILY 10/11/23 02/24/24 Unknown History zolpidem 10 mg tablet 10 mg PO BEDTIME PRN 10/11/23 02/24/24 Unknown History semaglutide (weight loss) 1.7 mg subcut 02/24/24 02/24/24 04/06/24 History mg/0.75 mL subcutaneous pen injector (Wegovy) Assessment and Plan Assessment Anesthesia Assessment: Chart Reviewed Documented by User: Carrie Brizuela MD 04/15/24 09:26 PMFSH Family History Family history of problems with anesthesia: No Surgical History Surgical History (Updated 04/15/24 @ 08:32 by Gale Wallace RN) Hx of appendectomy Hx of laparoscopic gastric banding History of Problems with Anesthesia: No Social History Social History (Updated 02/24/24 @ 13:46 by Alexandra Borjas) Alcohol intake: never Patient Tobacco Use Status: Never used Tobacco Use of substances other than those prescribed or required for medical reasons: No Are you DNR?: No Advance Directives: No Advance Directives Information Provided: Yes Advance Directives on File: No Recently lost weight without trying: No Nutrition Risks: No Nutritional Risk Poor oral hygiene: No Current occupational status: employed 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, 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 Meds Allergies Allergy/AdvReac Type Severity Reaction Status Date / Time No Known Allergies Allergy Verified 03/20/24 12:24 Home Medications ?Medication ?Instructions ?Recorded ?Confirmed ?Last Taken ?Type citalopram 20 mg tablet 20 mg PO DAILY 10/11/23 02/24/24 Unknown History zolpidem 10 mg tablet 10 mg PO BEDTIME PRN 10/11/23 02/24/24 Unknown History semaglutide (weight loss) 1.7 mg subcut 02/24/24 02/24/24 04/06/24 History mg/0.75 mL subcutaneous pen injector (Wegovy) Exam Airway Mallampati Class: III TM Dist: >3cm Neck ROM: Full Assessment and Plan Assessment Anesthesia Assessment: Anesthesia Plan Discussed Final Anesthetic Review Family History of Problems with Anesthesia: No History of Problems with Anesthesia: No NPO: Yes ASA Class: III Final Preanesthetic Review: No Changes in Pt Med Stat, Meds/Allgs Chart Reviewed, Consent Obtained/Reviewed and Anes Risks/Benef Reviewed Patient Risk: Intermediate Procedure Risk: Low Anesthetic Plan Anesthetic Plan: GA Disposition: Standard PACU
[2024-04-15 08:35] VITALS: BMI 38.8
[2024-04-15 08:40] VITALS: BP 123/84; PULSE 74; RESP 16; TEMP 36.3; O2SAT 96
[2024-04-15] MEDS: Lactated Ringers 1,000 ML 100 ML IVCONT (09:04)
--- NOTE | 2024-04-15 10:10 | MHC.SHP ---
Pre-Procedural Eval Section A - 24 Hr Update-Section A only Date of Service: 04/15/24 The patient is an INPATIENT: No Changes since office visit: No Cold of Flu in the past 2 weeks, No New Medical Problems, No Changes in Medication and No Patient answered all questions The patient has been examined within 24 hours of the surgical procedure. The History & Physical has been completed within 30 days and I have reviewed it.: Yes Section B - Complete if H&P > 30 days Chief Complaint: Other tear of medial meniscus, current injury, lef Allergies: Allergies Allergy/AdvReac Type Severity Reaction Status Date / Time No Known Allergies Allergy Verified 03/20/24 12:24 Plan I have reviewed the history and physical and performed a pertinent physical examination on my patient. No changes have occurred unless specified. Time Spent With Patient Time: Total time managing care of this patient today ____ minutes.
[2024-04-15 11:18] VITALS: BP 138/83; PULSE 74; RESP 15; TEMP 36.4; O2SAT 100
[2024-04-15 11:33] VITALS: BP 125/85; PULSE 75; RESP 16; TEMP 36.5; O2SAT 97
--- NOTE | 2024-04-15 13:44 | P.BOP_ITS ---
Brief Operative Note Date of Service: 04/15/24 Pre-op diagnosis: Left knee medial meniscus tear Post-op diagnosis: other (1)ghazala 2) Left knee PF Chondrolmalacia) Procedure: Medial meniscectomy and chondroplasty left knee Implants: none Surgeon: Micheal Caban MD Anesthesia: GETA and local Was an Furnace Reliner used for this Procedure?: No Estimated blood loss (mL): 5 Tourniquet time (min): 22 IV fluids (mL): 60 Pathology: none sent Condition: stable Disposition: PACU
--- NOTE | 2024-04-15 13:46 | W.PM.OPN ---
Operative Note Operative Note Date of Service: 04/15/24 Narrative: Date of Service: 04/15/24 Pre-op diagnosis: Left knee medial meniscus tear Post-op diagnosis: other (1)ghazala 2) Left knee PF Chondrolmalacia) Procedure: Medial meniscectomy and chondroplasty left knee Implants: none Surgeon: Micheal Caban MD Anesthesia: GETA and local Was an Box Toe Buffer used for this Procedure?: No Estimated blood loss (mL): 5 Tourniquet time (min): 22 IV fluids (mL): 60 Pathology: none sent Condition: stable Disposition: PACU Procedure in detail: Patient was brought to the operating room placed supine on the arthroscopic table and prepped and draped in standard sterile fashion. A time-out was called to identify proper site proper procedure proper surgeon and IV antibiotics per weight were administered. I began by exsanguinating the limb and insufflating tourniquet to 300 mm Hg. Then made a standard anterolateral stab incision. The knee was insufflated with water and 30 degree arthroscope was placed. There was grade 2/3 changes of the lateral patella and G2 softening/fibrillations of the lateral trochlea. The suprapatellar pouch and the gutters were otherwise clean. I descended into the medial compartment where I made my medial portal under direct visualization. There was obvious of complex tear of the posterior horn of the medial meniscus. The root was intact and there was grade 1 changes in the tibial plateau but minimal. I used a combination of biter shaver and cautery to remove unstable portions of the meniscus. Apporximately 30% meniscal volume was removed. Once I was satsfied with this the ACL was examined and found to be intact and the lateral compartment also was without the need for intervention. I returned the [facility] PF compartment where I debrided the patella and trochlea with a shaver and ablation wand. I then removed all instrumentation and closed the portals with skin glue. 25 mL of 2% Marcaine with epinephrine was injected into the joint and the surrounding soft tissues. Patient was then placed in sterile dressing extubated brought recovery room stable condition. There were no known complications.
== END 2024-04-15 12:32 | disposition home or self-care (01) ==
LOC: HO.SSS 07:32
PROVIDERS: PCP Physician Assistant; Visit Provider Orthopaedic Surgery
PROC: (CPT 29870; principal; 2024-04-15 11:00)
DX: S83.232A Complex tear of medial meniscus, current injury, left knee, initial encounter (principal); M22.42 Chondromalacia patellae, left knee; M17.12 Unilateral primary osteoarthritis, left knee; W18.2XXA Fall in (into) shower or empty bathtub, initial encounter; X50.1XXA Overexertion from prolonged static or awkward postures, initial encounter; Y93.E1 Activity, personal bathing and showering; Y92.9 Unspecified place or not applicable; Y99.9 Unspecified external cause status; Z79.85 Long-term (current) use of injectable non-insulin antidiabetic drugs; Z98.84 Bariatric surgery status
CPT/HCPCS: 29881; J0131; J0171; J0690; J1100; J2003; J2250; J2405; J2704; J2795; J3010

== ENCOUNTER → 2024-04-15 07:31 | Outpatient (BNV) | payer OTHER, SELFPAY | PROVIDERS: PCP Physician Assistant; Visit Provider Orthopaedic Surgery | DX: S83.232A Complex tear of medial meniscus, current injury, left knee, initial encounter (principal) | CPT/HCPCS: 29881 ==

== ENCOUNTER 2024-04-23 09:47 | Outpatient (AMB) | payer OTHER, SELFPAY ==
--- NOTE | 2024-04-23 10:14 | A.OFFVIS_ITS ---
Intake Visit Reasons: PO LT knee 04/15/24 NE Intake Note: Heath is a 53 year old male who presents today for a post op appointment s/p left knee 04/15/24 NE. Patient reports he is having some pain and stiffness in his knee. He states when he is laying down he starts to have pain in his knee. Allergies No Known Allergies Allergy (Verified 03/20/24 12:24) HPI HPI PO LT knee 04/15/24 NE: Details: 53-year-old who presents in the office today 8 days status post left knee arthroscopy which was performed on 04/15/[address] Caban. While in the office today, the patient reports experiencing mild pain and stiffness in his left knee. He mentions that he starts to have pain in the left knee when lying down. 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 No surrounding erythema or drainage. No signs of infection. ROM is 0-110 degrees. NVI. Assessment & Plan Assessment & Plan (1) Status post arthroscopy of left knee: Code(s): Z98.890 - Other specified postprocedural states Category: Surgical Plan Mr. Babin is a 53-year-old who presents in the office today 8 days status post left knee arthroscopy which was performed on 04/15/[address] Caban. While in the office today, the patient reports experiencing mild pain and stiffness in his left knee. He mentions that he starts to have pain in the left knee when lying down. The patient was recommended to attend 1-2 sessions of formal physical therapy with instruction of a home exercise program. An order has been placed for PT today. A prescription for celebrex 200 mg PO BID PRN was sent to the pharmacy for pain relief. 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 He was provided with a work note while in the office today stating to remain out of work until follow-up and his estimated return to work date is 06/15/2023. Follow-up will be in 4 weeks, or sooner if needed. Orders: Orders PT Evaluation and Treatment Today M23.92 - Unspecified internal derangement of left knee, S83.242A - Other tear of medial meniscus, current injury, left knee, initial encounter Medications: New celecoxib (Celebrex) 200 mg PO BID 60 caps 0RF 30 days Patient Instructions: Scribed by Patricia Felder claim review medical director, for Cat King PA-C on 04/23/24 at 10:47 am EST. Coding Level of Care Code Global (58729) Diagnoses Status post arthroscopy of left knee Z98.890
== END 2024-04-23 10:23 | disposition home or self-care (01) ==
PROVIDERS: PCP Physician Assistant; Visit Provider Physician Assistant
DX: Z98.890 Other specified postprocedural states (principal)
CPT/HCPCS: 99024

== ENCOUNTER → 2024-04-23 09:47 | Outpatient (BNVA) | payer OTHER, SELFPAY | PROVIDERS: PCP Physician Assistant; Visit Provider Physician Assistant | DX: Z47.89 Encounter for other orthopedic aftercare (principal) | CPT/HCPCS: 99212 ==

== ENCOUNTER 2024-05-01 10:50 | Outpatient (AMB) | payer OTHER, SELFPAY ==
--- NOTE | 2024-05-01 10:53 | A.OFFVIS_ITS ---
Vital Signs 05/01/24 11:09 Height 6 ft Weight 286 lb BMI 38.8 Intake Visit Reasons: PO- LT knee 04/15/24 NE(wound check) Intake Note: Heath a 53 year old male who presents today for a post operative wound check s/p left knee on 04/15/24. Patient reports incision is leaking a clear fluid and today he had noticed blood in his discharge. Allergies No Known Allergies Allergy (Verified 05/01/24 11:09) HPI HPI PO- LT knee 04/15/24 NE(wound check): Details: 53-year-old gentleman presents to the office today for concern over his incision sites. He is status post left knee arthroscopy with Dr. Caban on April 15. States he remove the Band-Aids on this past Saturday and he noticed some drainage from the incision sites. No fever or chills. No purulent drainage. 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 There is some swelling over the medial portal site. There is no active drainage. It is tender to palpation. He has good range of motion without deficits. Neurovascularly intact. Assessment & Plan Assessment & Plan (1) Status post arthroscopy of left knee: Code(s): Z98.890 - Other specified postprocedural states Category: Surgical Plan It appears there may be some fluctuance to the medial portal site. I do feel as though if he applies warm compress over the next several days 3 times a day for 20 minute intervals he may be able to express some of this on its own. I also gave him a prescription for Bactrim to take twice a day if this does resolve on its own he does not need to follow up again however if there is worsening pain redness or purulence he should contact our office to discuss further. Medications: New sulfamethoxazole-trimethoprim 800-160 mg (Bactrim DS) 1 tab PO BID 20 tabs 0RF suture abscess 10 days Coding Level of Care Code Global (82996) Diagnoses Status post arthroscopy of left knee Z98.890
[2024-05-01 11:09] VITALS: BMI 38.8
== END 2024-05-01 11:30 | disposition home or self-care (01) ==
PROVIDERS: PCP Physician Assistant; Visit Provider Physician Assistant
DX: Z98.890 Other specified postprocedural states (principal)
CPT/HCPCS: 99024

== ENCOUNTER → 2024-05-01 10:50 | Outpatient (BNVA) | payer OTHER, SELFPAY | PROVIDERS: PCP Physician Assistant; Visit Provider Physician Assistant | DX: Z47.89 Encounter for other orthopedic aftercare (principal) | CPT/HCPCS: 99212 ==

== ENCOUNTER 2024-05-04 12:44 | Outpatient (AMB) | payer OTHER, SELFPAY ==
--- NOTE | 2024-05-04 13:01 | A.OFFVIS_ITS ---
Vital Signs 05/04/24 13:09 Height 6 ft Weight 286 lb BMI 38.8 Intake Visit Reasons: PO, Left knee wound check Intake Note: Heath a 53 year old male who presents today for a post operative wound check s/p left knee on 04/15/24. Allergies No Known Allergies Allergy (Verified 05/04/24 13:09) Medication List - Last Reconciled 05/04/24 by July Webb PA-C celecoxib (Celebrex) 200 mg PO BID 30 days citalopram 20 mg PO DAILY hydrocodone-acetaminophen 5-325 mg 1 tab PO Q8H PRN 7 days semaglutide (weight loss) (Wegovy) mg subcut sulfamethoxazole-trimethoprim 800-160 mg (Bactrim DS) 1 tab PO BID 10 days zolpidem 10 mg PO BEDTIME PRN HPI HPI PO, Left knee wound check: Details: 53-year-old male who returns to the office today for post-op left knee , 04/15/24. He presents today for a wound check. He has been taking antibiotics and performing warm compresses as instructed. He has no concerns today. 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 No active drainage. swelling has improved. No flatulence, no purulence. ROM is 0-95 degrees. Calf supple, nontender. NVI. Assessment & Plan Assessment & Plan (1) Status post arthroscopy of left knee: Code(s): Z98.890 - Other specified postprocedural states Category: Surgical Plan Reassurance was given that I do not appreciate any active infection. I recommend he continues with his antibiotics and continues with warm compresses for a few days. If symptoms persist or worsens, patient will contact the office next week, otherwise follow-up as needed if everything resolves. Patient Instructions: Scribed for uJly Webb PA-C, by Erik Hill biomedical engineering technician, on 05/04/2024 at 1:00 PM EST.? I, July Webb PA-C, have personally reviewed and agree with the information entered by the scribe. Coding Level of Care Code Global (93163) Diagnoses Status post arthroscopy of left knee Z98.890
[2024-05-04 13:09] VITALS: BMI 38.8
== END 2024-05-04 13:43 | disposition home or self-care (01) ==
PROVIDERS: PCP Physician Assistant; Visit Provider Physician Assistant
DX: Z98.890 Other specified postprocedural states (principal)
CPT/HCPCS: 99024

== ENCOUNTER → 2024-05-04 12:44 | Outpatient (BNVA) | payer OTHER, SELFPAY | PROVIDERS: PCP Physician Assistant; Visit Provider Physician Assistant | DX: Z47.89 Encounter for other orthopedic aftercare (principal) | CPT/HCPCS: 99212 ==

== ENCOUNTER 2024-05-21 12:14 | Outpatient (AMB) | payer OTHER, SELFPAY ==
--- OUTSIDE RECORDS SUMMARY | 2024-05-21 12:17 | XMS_ITS ---
Author Name [facility] Organization [facility] Address [address] [place] [id number] Selected Encounter This section includes the information on record at [place] for the Encounter. Date/Time Encounter Type Encounter Description Reason Pro vider Source May 01, 2024 03:33 PM Outpatient Encounter PRIMARY CARE/MEDICINE [facility] Encounter Template Text not used by [place] Plan of Treatment: Future Appointments (+ 6 months) and Future Tests (+/- 45 days) The Plan of Treatment section includes future care activities for the patient from all [place] treatmentfacilities. This section includes future appointments and future orders which are active, pending or scheduled. Future Appointments This section includes appointments that were scheduled to occur 6 months from the date of the Encounter, up to a maximum of 20 appointments. The data comes from all [place] treatment facilities. Appointment Date/Time Appointment Type Appointme nt Facility Name Jun 11, 2024 11:00 AM AMBULATORY - MEDICINE [facility] Encounter Notes: All associated encounter notes This section contains the clinical notes associated to the Encounter. Date/Time Encounter Note(s) Provider Source May 01, 2024 03:33 PM PRIMARY CARE ADMIN ISTRATIVE NOTE: LOCAL TITLE: CONTACT INFO/[place] PROVIDERS & PHARMACY STANDARD TITLE: PRIMARY CARE ADMINISTRATIVE NOTE DATE OF NOTE: MAY 01, 2024@15:33 ENTRY DATE: MAY 01, 2024@15:33:43 AUTHOR: GODFREY SALGADO EXP COSIGNER: URGENCY: STATUS: COMPLETED NON [place] PCP: MERI KRAMER Physician construction administrative assistant in [place], [place] [address], [place] [address] /es/ GODFREY SALGADO LPN LPN Signed: 05/01/2024 15:33 GODFREY SALGADO MENDOTA
--- OUTSIDE RECORDS SUMMARY | 2024-05-21 12:17 | XMS_ITS ---
Author Organization [facility] Address [address] [place] [address] Care Team Providers Care Sql Data Analyst Name Role Phone ELSA LAUGHLIN Unavailable [phone] MERI KRAMER Unavailable [phone] REASON FOR VISIT New Refill Request MEDICATIONS Medication SIG (Take, Route, Fr equency, Duration) Notes Start Date End Date Status Wegovy 1.7 MG/0.75ML INJECT 1.7MG UNDER THE SKIN WEEKLY for 28 Active Encounters Encounter Location Date Provider Diagnosis [address] [place] [id number] 05/18/2024 MERI KRAMER PLAN OF TREATMENT Medication Medication Name Sig Start Date Stop Date Notes Wegovy 1.7 MG/0.75ML INJECT 1.7MG UNDER THE SKIN WEEKLY for 28 Next Appt Details Provider Name:MERI KRAMER, 1 07/27/2023 01:30:00 PM, [address], [place], [address], Progress Notes * ARPANHeath AGUILADOB:[birth year] (53 yo M)Acc No.[id number]:05/18/2024 Patient:??Heath ANTONY :1970?Age:53 Y?Sex:Thierno ngo Address:[address], [place] [address] * Refills?? Refill Wegovy Solution Auto-injector, 1.7 MG/0.75ML, 3 Milliliter, INJECT 1.7MG UNDER THE SKIN WEEKLY, 28, Refills=0 * true * Date:??
--- OUTSIDE RECORDS SUMMARY | 2024-05-21 12:17 | XMS_ITS ---
Author Name [facility] Organization [facility] Address [address] [place] [id number] Selected Encounter This section includes the information on record at MD for the Encounter. Date/Time Encounter Type Encounter Description Reason Pro vider Source Apr 28, 2024 02:27 PM Outpatient Encounter PRIMARY CARE/MEDICINE IHE Encounter Template Text not used by MD Plan of Treatment: Future Appointments (+ 6 months) and Future Tests (+/- 45 days) The Plan of Treatment section includes future care activities for the patient from all MD treatmentfacilities. This section includes future appointments and future orders which are active, pending or scheduled. Future Appointments This section includes appointments that were scheduled to occur 6 months from the date of the Encounter, up to a maximum of 20 appointments. The data comes from all MD treatment facilities. Appointment Date/Time Appointment Type Appointme nt Facility Name Jun 11, 2024 11:00 AM [facility] Encounter Notes: All associated encounter notes This section contains the clinical notes associated to the Encounter. Date/Time Encounter Note(s) Provider Source Apr 28, 2024 02:29 PM ADDENDUM: LOCAL TITLE: Addendum STANDARD TITLE: ADDENDUM DATE OF NOTE: APR 28, 2024@14:29:31 ENTRY DATE: APR 28, 2024@14:29:32 AUTHOR: DACIA REICH EXP COSIGNER: URGENCY: STATUS: COMPLETED 60 MINS NEW PT APPT [facility] PLEASE REQUEST NON VA RECORDS FROM CONTACT LISTED BELOW RTC TO PACT 5 MERI KRAMER Physician social work assistant in [place], [place] [address], [place], [place] [id number] /es/ Dacia Reich ADVANCED CANAL BOAT OPERATOR Signed: 04/28/2024 14:31 Receipt Acknowledged By: 04/30/2024 11:08 /es/ RADHA CORLEY ADVANCED CANAL BOAT OPERATOR 04/28/2024 14:41 /es/ JOSSELIN SCHUMACHER, NURSE COMPANION PACT 10 for CECELIA JOHNS 05/01/2024 15:34 /es/ GODFREY SALGADO LPN LPN 05/03/2024 23:14 /es/ MARKY GONZALEZRN REGISTERED NURSE 04/28/2024 14:41 /es/ JOSSELIN SCHUMACHER, NURSE COMPANION PACT 10 04/28/2024 14:48 /es/ EVELINE REYNOLDS ======== --- Original Document --- 04/28/24 PATIENT LETTER (T): ANGE ANTONY [address] [place], [place], [address] Dear Laura, Welcome to patient aligned care team 5 (PACT 5) with Dr. VILLAREAL. Prior to meeting you at your new patient appointment we are requesting some of your past medical history so that we may provide you with the exceptional care you deserve. Please note that it is very helpful to have these documents at least two days prior to your appointment date as the more information we have the better we will be able to meet your needs: * Last History & Physical * Immunization records * Medication list * Diagnosis list * Most recent labs * Diagnostic screens (Colonoscopy, Abdominal Aortic Aneurysm screen, Mammograms, PAPS, etc.) You may either drop the requested records off in person to [address] [place] [address] or you may have them faxed to: [phone] ATTN: PACT 5 *Also please complete the enclosed new patient packet and drop it off at our [place] location: [address] [place] [address]* If you have any questions please do not hesitate to contact the [facility] [place] call center at [phone]. We look forward to providing your health care! 04/28/2024 ADDENDUM STATUS: COMPLETED Reocrd request sent to [facility] FAX: [phone] /judith/ EVELINE REYNOLDS Signed: 04/28/2024 14:48 DACIA REICH GALLOWAY Apr 28, 2024 02:27 PM LETTERS: LOCAL TITLE: PATIENT LETTER (T) STANDARD TITLE: LETTERS DATE OF NOTE: APR 28, 2024@14:27 ENTRY DATE: APR 28, 2024@14:27:31 AUTHOR: DACIA REICH EXP COSIGNER: URGENCY: STATUS: COMPLETED PATIENT LETTER (T) Has ADDENDA [facility] Toll Free Number Primary Care Telephone Assistance can be reached at extension [phone] [facility] scheduling can be reached at extension [phone] [facility] scheduling can be reached at ext [phone] ANGE ANTONY [address] [place], [place], [address] Dear Laura, Tamara to patient aligned care team 5 (PACT 5) with Dr. VILLAREAL. Prior to meeting you at your new patient appointment we are requesting some of your past medical history so that we may provide you with the exceptional care you deserve. Please note that it is very helpful to have these documents at least two days prior to your appointment date as the more information we have the better we will be able to meet your needs: * Last History & Physical * Immunization records * Medication list * Diagnosis list * Most recent labs * Diagnostic screens (Colonoscopy, Abdominal Aortic Aneurysm screen, Mammograms, PAPS, etc.) You may either drop the requested records off in person to [address] [place] [address] or you may have them faxed to: [phone] ATTN: PACT 5 *Also please complete the enclosed new patient packet and drop it off at our [place] location: [address] [place] [address]* If you have any questions please do not hesitate to contact the Department of 's Affairs call center at [phone]. We look forward to providing your health care! 04/28/2024 ADDENDUM STATUS: COMPLETED 60 MINS NEW PT APPT [facility] PLEASE REQUEST NON VA RECORDS FROM CONTACT LISTED BELOW RTC TO PACT 5 MERI KRAMER Physician social work assistant in [place], [place] [address], [place] [address] /es/ Dacia Reich ADVANCED CANAL BOAT OPERATOR Signed: 04/28/2024 14:31 Receipt Acknowledged By: * AWAITING SIGNATURE * RADHA CORLEY 04/28/2024 14:41 /es/ JOSSELIN SCHUMACHER LPN PACT 10 for CECELIA JOHNS * AWAITING SIGNATURE * GODFREY SALGADO * AWAITING SIGNATURE * MARKY GONZALEZ 04/28/2024 14:41 /es/ JOSSELIN SCHUMACHER LPN PACT 10 04/28/2024 14:48 /es/ EVELINE REYNOLDS 04/28/2024 ADDENDUM STATUS: COMPLETED Reocrd request sent to [facility] FAX: [phone] /judith/ EVELINE REYNOLDS Signed: 04/28/2024 14:48 Sincerely, Your Primary Care Team [facility] [address] [facility] [address] [place] [address] [place] [address] [phone] [place] [facility] [address] [place] [address] [place] [address] [phone] [facility] [address] [facility] [place] [id number] [place] [address] [phone] DACIA REICH GALLOWAY
--- OUTSIDE RECORDS SUMMARY | 2024-05-21 12:17 | XMS_ITS | Continuity of Care Document ---
Author Name [facility] Organization [facility] Care Team Providers Care Floor Covering Contractor Name Role Phone [facility] Unavailable Unavailable Allergies, Adverse Reactions, Alerts Combined list of allergies from Department of Defense and [facility] facilities. It does not include entries that were removed or entered in error. Substance Category Reaction Severity Reaction type Status Date Reported Comments Source No Known Allergies Drug allergy (disorder) active 08/11/2007 [facility] Encounters Combined list of: 1) Encounters from Department of Veterans Affairs facilities going back up to thelast 18 months. 2) Encounters from the Department of [facility] facilities going back up to 280 months. Location Location Details Encounter Type Encounter Number Reason For Visit Attending Provider ADM Date DC Date Status Disposition Source [facility] [place] [facility] Outpatient Encounter [id number] 04/28 [place] [facility] [place] [place] [facility] Outpatient Encounter [id number] 05/01 [place] [facility] [place] [facility] Procedures Combined list of: 1) Procedures from Department of Veterans Affairs facilities going back up to thelast 18 months, not all [place] non-surgical procedures are included; 2) All procedures from the [facility] of [facility] facilities. Procedure Procedure Type Code Date Perfomer Comments Sourc e OTHER APPENDECTOMY 09/11/1996 [facility] D ISOLATION 12/30/1994 [facility] Social History Combined list of available smoking, tobacco, and other social history from Department of Defense and Veterans Affairs facilities. Social History Type Response Date Comment Margaret mederos This section is an empty social history section. [facility] Plan of Care List of future care activities from Department of Veterans Affairs facilities. Additional future care activities may be listed in the Assessment and Plan section. Date/Time Care Activity Care Activity Detail Facili ty 06/11/2024 AMBULATORY - MEDICINE [facility]
--- OUTSIDE RECORDS SUMMARY | 2024-05-21 12:18 | XMS_ITS | Patient Health Record ---
Author Organization [facility] Address [address] [place] [address] Care Team Providers Care Desizing Machine Offbearer Name Role Phone ELSA LAUGHLIN Unavailable [phone] GAR, KYRA Unavailable [phone] DIOGENES DAMON Unavailable [phone] MERI KRAMER Unavailable [phone] ALLERGIES No Known Allergies REASON FOR REFERRAL No Information MEDICATIONS Medication SIG (Take, Route, Frequency, Duration) Notes Start Date End Date Status Zolpidem Tartrate 10 MG TAKE 1 TABLET BY MOUTH EVERY EVENING Oral for 30 Days Active Ibuprofen 800 MG TAKE 1 TABLET BY MOUTH EVERY 8 HOURS NEEDED FOR PAIN Oral for 7 Days as needed Active Wegovy 1.7 MG/0.75ML INJECT 1.7MG UNDER THE SKIN WEEKLY for 28 Active CeleXA 10 MG 1 tablet Orally Once a day Active Ambien 10 MG 1 tablet at bedtime as needed Orally Once a day Not-Taking Citalopram Hydrobromide 20 MG TAKE 1 TABLET BY MOUTH EVERY MORNING Oral for 30 Days Not-Taking Wegovy 0.25 MG/0.5ML 0.25mg Subcutaneous weekly for 30 days PA approved DX:E66.09 02/05/2023 Not-Taking Motrin Active IMMUNIZATIONS Vaccine Route Administration Date Status Comme nts SHINGRIX IM Intramuscular 09/12/2023 Administered SHINGRIX IM Intramuscular 02/27/2024 Administered SOCIAL HISTORY Tobacco Use: Social History Observation Description Date Details (start date - stop date) Never Smoker NA - NA Sex Assigned At : Social History Observation Description Sex Assigned At Unknown Tobacco Use/Smoking Question Answer Notes Are you a nonsmoker Section Notes: PT admitts that stop drinkin g PT admitts that stop drinkin g PT admitts that stop drinkin g PT admitts that stop drinkin g PT admitts that stop drinkin g PT admitts that stop drinkin g PT admitts that stop drinkin g PT admitts that stop drinkin g PT admitts that stop drinkin g PROBLEMS Problem Type ICD Code Onset Dates Problem Status W/U Status Risk SNOMED Code Notes Problem Vitamin D deficiency, unspecified (E55.9) Active confirmed Vitamin D deficiency (13112037) Problem Primary insomnia (F51.01) Active confirmed 1707629 Problem Encounter for general adult medical examination without abnormal findings (Z00.00) Active confirmed Adult heal th examination (596455630) Problem Encounter for screening for malignant neoplasm of prostate (Z12.5) Active confirmed 371032913 Problem Encounter for screening for other suspected endocrine disorder (Z13.29) Active confirmed 555286100 Problem Morbid obesity (E66.01) Active confirmed 406614822 Problem Hyperlipidemia, unspecified hyperlipidemia type (E78.5) Active confirmed Hyperlipidaemia (86912520) Problem Hypothyroidism, unspecified type (E03.9) Active confirmed Hypothyroidism (34864949) Problem BMI 40.0-44.9, adult (Z68.41) Active confirmed 049144693 Problem Depression with anxiety (F41.8) Active confirmed 971160995 VITAL SIGNS Heart Rate 73 /min 02/27/2024 Oximetry 98 % 02/27/2024 Blood pressure diastolic 80 mm Hg 02/27/2024 Height 70 in 02/27/2024 Blood pressure systolic 124 mm Hg 02/27/2024 Weight 280.9 lbs 02/27/2024 BMI 40.3 kg/m2 02/27/2024 Encounters Encounter Location Date Provider Diagnosis [facility] [address] [place] [address] 08/21/2023 DIOGENES DAMON [facility] [address] [place] [address] 08/28/[address] [facility] [address] [facility] [place] [address] 09/04/[address] [facility] [address] [facility] [place] [address] 09/18/[address] [facility] [address] [facility] [place] [address] 09/25/[address] [facility] [address] [facility] [place] [address] 10/02/[address] [facility] [address] [place] [address] 10/19/[address] [facility] [address] [place] [address] 11/28/[address] [facility] [address] [place] [address] 02/17/[address] [facility] [address] [place] [address] 02/18/[address] [facility] [address] [place] [address] 02/28/[address] [facility] [address] [place] [address] 04/15/[address] [facility] [address] [place] [address] 07/17/2023 MERI NIA Morbid obesity E66.0 1 ; BMI 40.0-44.9, adult Z68.41 ; Depression with anxiety F41.8 ; Primary insomnia F51.01 ; Hyperlipidemia, unspecified hyperlipidemia type E78.5 ; Vitamin D deficiency, unspecified E55.9 and Pre-diabetes R73.[address] [facility] [address] [place] [address] 09/12/2023 MERI NIA Adult general medica l exam Z00.00 ; Numbness of hand R20.0 ; Morbid obesity E66.01 ; BMI 40.0-44.9, adult Z68.41 ; Depression with anxiety F41.8 ; Primary insomnia F51.01 ; Hyperlipidemia, unspecified hyperlipidemia type E78.5 and Encounter for immunization Z23 [address] [facility] [address] [facility] [place] [address] 10/11/2023 MERI NIA Morbid obesity E66.0 1 ; BMI 40.0-44.9, adult Z68.41 ; Numbness of hand R20.0 ; Depression with anxiety F41.8 ; Primary insomnia F51.01 and Hyperlipidemia, unspecified hyperlipidemia type E78.[address] [facility] [address] [place] [address] 11/20/2023 MERI NIA Morbid obesity E66.0 1 ; BMI 40.0-44.9, adult Z68.41 ; Numbness of hand R20.0 ; Depression with anxiety F41.8 ; Primary insomnia F51.01 and Hyperlipidemia, unspecified hyperlipidemia type E78.[address] [facility] [address] [place] [address] 01/15/2024 MERI NIA Morbid obesity E66.0 1 ; BMI 40.0-44.9, adult Z68.41 ; Numbness of hand R20.0 ; Depression with anxiety F41.8 ; Primary insomnia F51.01 and Hyperlipidemia, unspecified hyperlipidemia type E78.5 [facility] [address] [place] [address] 02/27/2024 MERI NIA Morbid obesity E66.0 1 ; BMI 40.0-44.9, adult Z68.41 ; Depression with anxiety F41.8 ; Primary insomnia F51.01 ; Hyperlipidemia, unspecified hyperlipidemia type E78.5 and Encounter for immunization Z23 [address] [facility] [address] [place] [address] 08/14/2023 ELSA LAUGHLIN [facility] [address] [facility] [address] [place] [address] 08/26/[address] [facility] [address] [place] [address] 09/18/2023 MERI NIA [address] [facility] [address] [facility] [address] [place] [address] 12/02/2023 ELSA LAUGHLIN Morbid obesity E66.[address] [place] [address] 12/02/2023 MERI NIA [address] [facility] [address] [place] [address] 05/18/2024 MERIDory KRAMER ASSESSMENTS Encounter Date Diagnosis Assessment Notes Treatment Notes Treatment Clinical Notes Section Notes 07/17/2023 BMI 40.0-44.9, adult (ICD-10 - Z68.41) #obesity 02/05/23: 309lbs, BMI 44. 04/10/23: 308.7 lbs, BMI: 44.29Patient was unable to find Wegovy that he was prescribed last visit. States that he is interested in Contrave as his mom is on this. I did discuss with him extensively risk of serotonin syndrome with use of Contrave due to its component of Wellbutrin and he is on Celexa. He states that his mom is on Celexa as well as utilizes Contrave. I discussed that I have no problem implementing this medication as long as he is aware of potential side effects with 2 antidepressants. Discussed extensively serotonin syndrome as a possible complication. Can send the medication to the pharmacy and if his insurance does not approve it can send to [facility]. Educated on potential side effects of medication and that he should avoid alcohol. Patient does not drink alcohol. Discussed potential insomnia. Educated on serotonin syndrome with Contrave and to monitor for signs and symptoms as well as potential suicidal ideation. We will follow-up in 4 weeks with SECA scale. #07/17/2023: Weight 309.86, BMI 42.02. He was originally seen in [place] where he was started on wegovy but it was not available at surrounding pharmacies. He was then see at our location where he was started on Contrave. He reports contrave was interferring with Celexa so patient self discontinued. Patient exercises frequently with resistance training and treadmill but has been constantly sick the past couple months so frequency has gone down. He reports his biggest barrier is diet, he knows he can make changes and eat out less. Patient does not have recent labs so we did in office HgbA1c with result of 6.3 indicating pre-diabetes. Based on these results, we will submit for Ozempic. Patient is aware that it may not get covered with prediabetic code. We had a sample in office and I gave that to patient today until we hear about Ozempic coverage. If Ozempic is denied, we will continue semaglutide here and office and submit for Wegovy once we reach a dose of 1mg. Seca was reviewed with patient. #Depression with anxiety, patient is on Celexa 10 mg. Educated on serotonin syndrome with Contrave and to monitor for signs and symptoms as well as potential suicidal ideation. #Insomnia, patient is currently on zolpidem for help with sleep. Educated on continued compliance with this medication. #Hyperlipidemia, patient had elevated lipid levels educated on dietary lifestyle changes. Patient following up for complete physical in 6 to 8 weeks, sooner as needed. Working on [employer] coverage in the meantime Time spent with patient 30 minutes with greater than 50% of patient occasion and care coordination All quetsions answered to patients satisfaction. Patient verbalized understanding of diagnosis and treatments explained. To call sooner prior to next visit it any questions/concerns arise. Case discussed with collaborating physician Jennifer Gar who reviewed the assessment and plan. Chart, medications, labs, vital signs reviewed. Dictation was accomplished with the use of [employer] voice recognition software, prone to medical misidentifications and grammatical errors. This is unintentional and the practitioner does try to identify and correct these, but some could still be present. Please do not hesitate to contact practitioner for clarification. 07/17/2023 Morbid obesity (ICD-10 - E66.01) #obesity 02/05/23: 309lbs, BMI 44. 11/07/02: 308.7 lbs, BMI: 44.29Patient was unable to find Wegovy that he was prescribed last visit. States that he is interested in Contrave as his mom is on this. I did discuss with him extensively risk of serotonin syndrome with use of Contrave due to its component of Wellbutrin and he is on Celexa. He states that his mom is on Celexa as well as utilizes Contrave. I discussed that I have no problem implementing this medication as long as he is aware of potential side effects with 2 antidepressants. Discussed extensively serotonin syndrome as a possible complication. Can send the medication to the pharmacy and if his insurance does not approve it can send to [facility] pharmacy. Educated on potential side effects of medication and that he should avoid alcohol. Patient does not drink alcohol. Discussed potential insomnia. Educated on serotonin syndrome with Contrave and to monitor for signs and symptoms as well as potential suicidal ideation. We will follow-up in 4 weeks with SECA scale. #07/17/2023: Weight 309.86, BMI 42.02. He was originally seen in [place] where he was started on wegovy but it was not available at surrounding pharmacies. He was then see at our location where he was started on Contrave. He reports contrave was interferring with Celexa so patient self discontinued. Patient exercises frequently with resistance training and treadmill but has been constantly sick the past couple months so frequency has gone down. He reports his biggest barrier is diet, he knows he can make changes and eat out less. Patient does not have recent labs so we did in office HgbA1c with result of 6.3 indicating pre-diabetes. Based on these results, we will submit for Ozempic. Patient is aware that it may not get covered with prediabetic code. We had a sample in office and I gave that to patient today until we hear about Ozempic coverage. If Ozempic is denied, we will continue semaglutide here and office and submit for Wegovy once we reach a dose of 1mg. Seca was reviewed with patient. #Depression with anxiety, patient is on Celexa 10 mg. Educated on serotonin syndrome with Contrave and to monitor for signs and symptoms as well as potential suicidal ideation. #Insomnia, patient is currently on zolpidem for help with sleep. Educated on continued compliance with this medication. #Hyperlipidemia, patient had elevated lipid levels educated on dietary lifestyle changes. Patient following up for complete physical in 6 to 8 weeks, sooner as needed. Working on Ozempic coverage in the meantime Time spent with patient 30 minutes with greater than 50% of patient occasion and care coordination All quetsions answered to patients satisfaction. Patient verbalized understanding of diagnosis and treatments explained. To call sooner prior to next visit it any questions/concerns arise. Case discussed with collaborating physician Jennifer Gar who reviewed the assessment and plan. Chart, medications, labs, vital signs reviewed. Dictation was accomplished with the use of [employer] voice recognition software, prone to medical misidentifications and grammatical errors. This is unintentional and the practitioner does try to identify and correct these, but some could still be present. Please do not hesitate to contact practitioner for clarification. 09/12/2023 Adult general medical exam (ICD-10 - Z00.00) Heath is a 53-year-old male who presents the office for complete physical exam # Patient up-to-date on all routine screening and vaccines, will obtain shingles #1 today, get second shingles dose in the next 4 to 6 months. Educated on proper use, side effects. #Numbness / Tingling of Right Hand: patient states he has numbness and tingling of the right 4th and 5th digits of the hand that has been present 70% of the time in the last four weeks. 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 Denies muscle weakness or loss of full ROM. PE was WNL, neurovasularly intact, and negative Tinnel and De Quervian tests. Patient educated that this may be an side effect of the Semaglutide injection and we can stop injection if patient would like. Patient isn't too concerned at this point and would like to continue with medication. Education given to patient that he should contact us or visit the ER if numbness / tingling spreads up arm, becomes worse, or experiences muscle weakness / loss of control of fingers. #Obesity 02/05/23: 309lbs, BMI 44. 04/10/23: 308.7 lbs, BMI: 44.29Patient was unable to find Wegovy that he was prescribed last visit. States that he is interested in Contrave as his mom is on this. I did discuss with him extensively risk of serotonin syndrome with use of Contrave due to its component of Wellbutrin and he is on Celexa. He states that his mom is on Celexa as well as utilizes Contrave. I discussed that I have no problem implementing this medication as long as he is aware of potential side effects with 2 antidepressants. Discussed extensively serotonin syndrome as a possible complication. Can send the medication to the pharmacy and if his insurance does not approve it can send to [facility]. Educated on potential side effects of medication and that he should avoid alcohol. Patient does not drink alcohol. Discussed potential insomnia. Educated on serotonin syndrome with Contrave and to monitor for signs and symptoms as well as potential suicidal ideation. We will follow-up in 4 weeks with SECA scale. 07/17/2023: Weight 309.86, BMI 42.02. He was originally seen in [place] where he was started on wegovy but it was not available at surrounding pharmacies. He was then see at our location where he was started on Contrave. He reports contrave was interferring with Celexa so patient self discontinued. Patient exercises frequently with resistance training and treadmill but has been constantly sick the past couple months so frequency has gone down. He reports his biggest barrier is diet, he knows he can make changes and eat out less. Patient does not have recent labs so we did in office HgbA1c with result of 6.3 indicating pre-diabetes. Based on these results, we will submit for Ozempic. Patient is aware that it may not get covered with prediabetic code. We had a sample in office and I gave that to patient today until we hear about Ozempic coverage. If Ozempic is denied, we will continue semaglutide here and office and submit for Wegovy once we reach a dose of 1mg. Seca was reviewed with patient. 09/12/23: Weight: 289.7 lbs, BMI 42.85. Patient has been getting Semaglutide 0.5 mg in office since he hasn't been able to get the injection at the pharmacy. Will resend Wegovy 1 mg Rx through insurance for approval. Patient recieved Semaglutide 0.5 mg in office today. Tolerating medication dose well with mild constipation but no other ADRs. Patient is still working on improving his diet, but is exercising 4x/week. After consultation and careful review of medical history, this patient would benefit from Wegovy based off of the following criteria met: Patient is over the age of 18, has a BMI of 42. Additional comorbidities include depression, hyperlipidemia. Patient has trialed other methods of weight loss including improving diet, exercise without success over three months. This medication is prescribed by or in consultation with a board certified obesity and weight management physician (Dr. Kyra Gar or Dr. Yasmany Gar). #Depression with anxiety, patient is on Celexa 10 mg. Patient sees a psychiatrist / psychologist for his mental health. Today's PHQ-9 score is 3 indicating minimal concerns for depression. # Will obtain fasting blood work today #Insomnia, patient is currently on Ambien to help with sleep. Continue current regimen. #Hyperlipidemia, patient has a history of elevated lipid leveles. Will obtain labs before next visit to further assess. Patient was educated and is aware of lifestyle modifications to make to improve levels. Patient has pending lab orders for CBC, CMP, TSH, PSA LIPID and urine testing. Will be completed prior to next visit. Patient following up in 4 weeks for weight loss managment visit or sooner PRN. Patient seen and examined. Comprehensive discussion was done on the following. 1. Nutrition: It is important to follow a healthy diet based on lots of vegetables and legumes and good fat. Avoid processed food and processed carbohydrates. Prepare your own meals. Read labels and avoid high fructose corn syrup, processed chemicals added to increase shelf life and preprepared meals. Avoid fast foods. Eat slowly and plan meals for a week. Try to count calories and be mindful of daily calorie intake. Get into the habit of keeping an eye on your weight by using an appropriate scale. Learn to log exercise and discussed fitness Apps like [employer] which can help keep log off calories taken versus calories burned. Local food should be preferred. Discussed Dirty Dozen Versus Clean Fifteen. Discussed healthy supplements like fish oil, Tumeric, Curcumin, Melatonin, Resveratrol, Probiotics, Vitamin-D, Alpha-Lipoic acid, Vitamin-D and coconut oil. 2. It is important to exercise regularly. Is a good habit to walk at least 30 minutes a day. Gentle weightlifting with standard precautions to protect the back. Finding activity like cycling or hiking and get into the habit of engaging in it. Stretching before and after the exercises important. It is also important to contact me if there are any problems like shortness of breath, chest pain, back pain and joint or muscle pain associated with the exercise. 3. Discussed age appropriate screening guidelines. Colonoscopy needs to start at age 50 with stool for occult blood as appropriate. There is a new test that can test for genetic abnormalities in the stool sample, Cologuard. This would not replace a colonoscopy but could be used as a screening tool for patients who do not want a colonoscopy. We discussed the importance of early detection of colon cancer. 4. Discussed current PSA screening. PSA screening can be done in most patients between age 50 and 65. However early detection of prostate cancer needs to carefully be balanced with complications with treatment. These include incontinence, impotence etc. Each patient should decide if they would like to have this test. 5. Discussed safe driving and no use of smart phone while driving 6. Age-appropriate immunizations were discussed. A tetanus booster is needed every 10 years. Flu vaccine is recommended every year just before the start of the flu season. Shingles vaccine is recommended after age 50 but not all insurances cover it. Pneumonia vaccine is given after age 65 unless there are certain comorbidities for which it is started earlier. 7. Diagnostic labs were discussed. These could include/not limited to CBC CMP and lipids with fasting blood glucose and insulin levels. Vitamin D and hemoglobin A1c testing might be appropriate. All quetsions answered to patients satisfaction. Patient verbalized understanding of diagnosis and treatments explained. To call sooner prior to next visit it any questions/concerns arise. Case discussed with collaborating physician Jennifer Gar who reviewed the assessment and plan. Chart, medications, labs, vital signs reviewed. Dictation was accomplished with the use of [employer] voice recognition software, prone to medical misidentifications and grammatical errors. This is unintentional and the practitioner does try to identify and correct these, but some could still be present. Please do not hesitate to contact practitioner for clarification. 09/12/2023 Numbness of hand (ICD-10 - R20.0) Heath is a 53-year-old male who presents the office for complete physical exam # Patient up-to-date on all routine screening and vaccines, will obtain shingles #1 today, get second shingles dose in the next 4 to 6 months. Educated on proper use, side effects. #Numbness / Tingling of Right Hand: patient states he has numbness and tingling of the right 4th and 5th digits of the hand that has been present 70% of the time in the last four weeks. 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 Denies muscle weakness or loss of full ROM. PE was WNL, neurovasularly intact, and negative Tinnel and De Quervian tests. Patient educated that this may be an side effect of the Semaglutide injection and we can stop injection if patient would like. Patient isn't too concerned at this point and would like to continue with medication. Education given to patient that he should contact us or visit the ER if numbness / tingling spreads up arm, becomes worse, or experiences muscle weakness / loss of control of fingers. #Obesity 02/05/23: 309lbs, BMI 44. /07/02: 308.7 lbs, BMI: 44.29Patient was unable to find Wegovy that he was prescribed last visit. States that he is interested in Contrave as his mom is on this. I did discuss with him extensively risk of serotonin syndrome with use of Contrave due to its component of Wellbutrin and he is on Celexa. He states that his mom is on Celexa as well as utilizes Contrave. I discussed that I have no problem implementing this medication as long as he is aware of potential side effects with 2 antidepressants. Discussed extensively serotonin syndrome as a possible complication. Can send the medication to the pharmacy and if his insurance does not approve it can send to [facility]. Educated on potential side effects of medication and that he should avoid alcohol. Patient does not drink alcohol. Discussed potential insomnia. Educated on serotonin syndrome with Contrave and to monitor for signs and symptoms as well as potential suicidal ideation. We will follow-up in 4 weeks with SECA scale. 07/17/2023: Weight 309.86, BMI 42.02. He was originally seen in [place] where he was started on wegovy but it was not available at surrounding pharmacies. He was then see at our location where he was started on Contrave. He reports contrave was interferring with Celexa so patient self discontinued. Patient exercises frequently with resistance training and treadmill but has been constantly sick the past couple months so frequency has gone down. He reports his biggest barrier is diet, he knows he can make changes and eat out less. Patient does not have recent labs so we did in office HgbA1c with result of 6.3 indicating pre-diabetes. Based on these results, we will submit for Ozempic. Patient is aware that it may not get covered with prediabetic code. We had a sample in office and I gave that to patient today until we hear about Ozempic coverage. If Ozempic is denied, we will continue semaglutide here and office and submit for Wegovy once we reach a dose of 1mg. Seca was reviewed with patient. 09/12/23: Weight: 289.7 lbs, BMI 42.85. Patient has been getting Semaglutide 0.5 mg in office since he hasn't been able to get the injection at the pharmacy. Will resend Wegovy 1 mg Rx through insurance for approval. Patient recieved Semaglutide 0.5 mg in office today. Tolerating medication dose well with mild constipation but no other ADRs. Patient is still working on improving his diet, but is exercising 4x/week. After consultation and careful review of medical history, this patient would benefit from Wegovy based off of the following criteria met: Patient is over the age of 18, has a BMI of 42. Additional comorbidities include depression, hyperlipidemia. Patient has trialed other methods of weight loss including improving diet, exercise without success over three months. This medication is prescribed by or in consultation with a board certified obesity and weight management physician (Dr. Kyra Gar or Dr. Yasmany Gar). #Depression with anxiety, patient is on Celexa 10 mg. Patient sees a psychiatrist / psychologist for his mental health. Today's PHQ-9 score is 3 indicating minimal concerns for depression. # Will obtain fasting blood work today #Insomnia, patient is currently on Ambien to help with sleep. Continue current regimen. #Hyperlipidemia, patient has a history of elevated lipid leveles. Will obtain labs before next visit to further assess. Patient was educated and is aware of lifestyle modifications to make to improve levels. Patient has pending lab orders for CBC, CMP, TSH, PSA LIPID and urine testing. Will be completed prior to next visit. Patient following up in 4 weeks for weight loss managment visit or sooner PRN. Patient seen and examined. Comprehensive discussion was done on the following. 1. Nutrition: It is important to follow a healthy diet based on lots of vegetables and legumes and good fat. Avoid processed food and processed carbohydrates. Prepare your own meals. Read labels and avoid high fructose corn syrup, processed chemicals added to increase shelf life and preprepared meals. Avoid fast foods. Eat slowly and plan meals for a week. Try to count calories and be mindful of daily calorie intake. Get into the habit of keeping an eye on your weight by using an appropriate scale. Learn to log exercise and discussed fitness Apps like myZanbatopal/loseit which can help keep log off calories taken versus calories burned. Local food should be preferred. Discussed Dirty Dozen Versus Clean Fifteen. Discussed healthy supplements like fish oil, Tumeric, Curcumin, Melatonin, Resveratrol, Probiotics, Vitamin-D, Alpha-Lipoic acid, Vitamin-D and coconut oil. 2. It is important to exercise regularly. Is a good habit to walk at least 30 minutes a day. Gentle weightlifting with standard precautions to protect the back. Finding activity like cycling or hiking and get into the habit of engaging in it. Stretching before and after the exercises important. It is also important to contact me if there are any problems like shortness of breath, chest pain, back pain and joint or muscle pain associated with the exercise. 3. Discussed age appropriate screening guidelines. Colonoscopy needs to start at age 50 with stool for occult blood as appropriate. There is a new test that can test for genetic abnormalities in the stool sample, Cologuard. This would not replace a colonoscopy but could be used as a screening tool for patients who do not want a colonoscopy. We discussed the importance of early detection of colon cancer. 4. Discussed current PSA screening. PSA screening can be done in most patients between age 50 and 65. However early detection of prostate cancer needs to carefully be balanced with complications with treatment. These include incontinence, impotence etc. Each patient should decide if they would like to have this test. 5. Discussed safe driving and no use of smart phone while driving 6. Age-appropriate immunizations were discussed. A tetanus booster is needed every 10 years. Flu vaccine is recommended every year just before the start of the flu season. Shingles vaccine is recommended after age 50 but not all insurances cover it. Pneumonia vaccine is given after age 65 unless there are certain comorbidities for which it is started earlier. 7. Diagnostic labs were discussed. These could include/not limited to CBC CMP and lipids with fasting blood glucose and insulin levels. Vitamin D and hemoglobin A1c testing might be appropriate. All quetsions answered to patients satisfaction. Patient verbalized understanding of diagnosis and treatments explained. To call sooner prior to next visit it any questions/concerns arise. Case discussed with collaborating physician Jennifer Gar who reviewed the assessment and plan. Chart, medications, labs, vital signs reviewed. Dictation was accomplished with the use of [employer] voice recognition software, prone to medical misidentifications and grammatical errors. This is unintentional and the practitioner does try to identify and correct these, but some could still be present. Please do not hesitate to contact practitioner for clarification. 10/11/2023 Morbid obesity (ICD-10 - E66.01) Heath is a 53-year-old male who presents the office for weight f/u. #Obesity 02/05/23: 309lbs, BMI 44. 04/10/23: 308.7 lbs, BMI: 44.29Patient was unable to find Wegovy that he was prescribed last visit. States that he is interested in Contrave as his mom is on this. I did discuss with him extensively risk of serotonin syndrome with use of Contrave due to its component of Wellbutrin and he is on Celexa. He states that his mom is on Celexa as well as utilizes Contrave. I discussed that I have no problem implementing this medication as long as he is aware of potential side effects with 2 antidepressants. Discussed extensively serotonin syndrome as a possible complication. Can send the medication to the pharmacy and if his insurance does not approve it can send to [facility]. Educated on potential side effects of medication and that he should avoid alcohol. Patient does not drink alcohol. Discussed potential insomnia. Educated on serotonin syndrome with Contrave and to monitor for signs and symptoms as well as potential suicidal ideation. We will follow-up in 4 weeks with SECA scale. 07/17/2023: Weight 309.86, BMI 42.02. He was originally seen in [place] where he was started on wegovy but it was not available at surrounding pharmacies. He was then see at our location where he was started on Contrave. He reports contrave was interferring with Celexa so patient self discontinued. Patient exercises frequently with resistance training and treadmill but has been constantly sick the past couple months so frequency has gone down. He reports his biggest barrier is diet, he knows he can make changes and eat out less. Patient does not have recent labs so we did in office HgbA1c with result of 6.3 indicating pre-diabetes. Based on these results, we will submit for Ozempic. Patient is aware that it may not get covered with prediabetic code. We had a sample in office and I gave that to patient today until we hear about Ozempic coverage. If Ozempic is denied, we will continue semaglutide here and office and submit for Wegovy once we reach a dose of 1mg. Seca was reviewed with patient. 09/12/23: Weight: 289.7 lbs, BMI 42.85. Patient has been getting Semaglutide 0.5 mg in office since he hasn't been able to get the injection at the pharmacy. Will resend Wegovy 1 mg Rx through insurance for approval. Patient recieved Semaglutide 0.5 mg in office today. Tolerating medication dose well with mild constipation but no other ADRs. Patient is still working on improving his diet, but is exercising 4x/week. 10/11/2023: Weight 294, BMI 42.18. Patient graduated an effort, continuing to lose slow, steady weight. Adamantly declined Wegovy 1 mg because he did not lose 5% of his weight, but patient has since lost 5% of his weight. Congratulated on effort, continue to try to exercise with upper body as his right ankle is healing from a recent fracture. Will increase semaglutide 1 mg in the meantime. After consultation and careful review of medical history, this patient would benefit from Wegovy based off of the following criteria met: Patient is over the age of 18, has a BMI of 42. Additional comorbidities include hyperlipidemia. Patient has trialed other methods of weight loss including improving diet, exercise without success over three months. This medication is prescribed by or in consultation with a board certified obesity and weight management physician (Dr. Kyra Gar or Dr. Yasmany Gar). #Depression with anxiety, patient is on Celexa 10 mg. Patient sees a psychiatrist / psychologist for his mental health. Today's PHQ-9 score is 3 indicating minimal concerns for depression. #Insomnia, patient is currently on Ambien to help with sleep. Continue current regimen. #Hyperlipidemia, patient has a history of elevated lipid leveles. Will obtain labs before next visit to further assess. Patient was educated and is aware of lifestyle modifications to make to improve levels. Time spent with patient 30 minutes or greater than 50% of patient occasion and care coronation Follow-up in 4 weeks, sooner as needed All quetsions answered to patients satisfaction. Patient verbalized understanding of diagnosis and treatments explained. To call sooner prior to next visit it any questions/concerns arise. Case discussed with collaborating physician Jennifer Gar who reviewed the assessment and plan. Chart, medications, labs, vital signs reviewed. Dictation was accomplished with the use of [employer] voice recognition software, prone to medical misidentifications and grammatical errors. This is unintentional and the practitioner does try to identify and correct these, but some could still be present. Please do not hesitate to contact practitioner for clarification. 10/11/2023 BMI 40.0-44.9, adult (ICD-10 - Z68.41) Heath is a 53-year-old male who presents the office for weight f/u. #Obesity 02/05/23: 309lbs, BMI 44. /07/02: 308.7 lbs, BMI: 44.29Patient was unable to find Wegovy that he was prescribed last visit. States that he is interested in Contrave as his mom is on this. I did discuss with him extensively risk of serotonin syndrome with use of Contrave due to its component of Wellbutrin and he is on Celexa. He states that his mom is on Celexa as well as utilizes Contrave. I discussed that I have no problem implementing this medication as long as he is aware of potential side effects with 2 antidepressants. Discussed extensively serotonin syndrome as a possible complication. Can send the medication to the pharmacy and if his insurance does not approve it can send to [facility]. Educated on potential side effects of medication and that he should avoid alcohol. Patient does not drink alcohol. Discussed potential insomnia. Educated on serotonin syndrome with Contrave and to monitor for signs and symptoms as well as potential suicidal ideation. We will follow-up in 4 weeks with SECA scale. 07/17/2023: Weight 309.86, BMI 42.02. He was originally seen in [place] where he was started on wegovy but it was not available at surrounding pharmacies. He was then see at our location where he was started on Contrave. He reports contrave was interferring with Celexa so patient self discontinued. Patient exercises frequently with resistance training and treadmill but has been constantly sick the past couple months so frequency has gone down. He reports his biggest barrier is diet, he knows he can make changes and eat out less. Patient does not have recent labs so we did in office HgbA1c with result of 6.3 indicating pre-diabetes. Based on these results, we will submit for Ozempic. Patient is aware that it may not get covered with prediabetic code. We had a sample in office and I gave that to patient today until we hear about Ozempic coverage. If Ozempic is denied, we will continue semaglutide here and office and submit for Wegovy once we reach a dose of 1mg. Seca was reviewed with patient. 09/12/23: Weight: 289.7 lbs, BMI 42.85. Patient has been getting Semaglutide 0.5 mg in office since he hasn't been able to get the injection at the pharmacy. Will resend Wegovy 1 mg Rx through insurance for approval. Patient recieved Semaglutide 0.5 mg in office today. Tolerating medication dose well with mild constipation but no other ADRs. Patient is still working on improving his diet, but is exercising 4x/week. 10/11/2023: Weight 294, BMI 42.18. Patient graduated an effort, continuing to lose slow, steady weight. Adamantly declined Wegovy 1 mg because he did not lose 5% of his weight, but patient has since lost 5% of his weight. Congratulated on effort, continue to try to exercise with upper body as his right ankle is healing from a recent fracture. Will increase semaglutide 1 mg in the meantime. After consultation and careful review of medical history, this patient would benefit from Wegovy based off of the following criteria met: Patient is over the age of 18, has a BMI of 42. Additional comorbidities include hyperlipidemia. Patient has trialed other methods of weight loss including improving diet, exercise without success over three months. This medication is prescribed by or in consultation with a board certified obesity and weight management physician (Dr. Kyra Gar or Dr. Yasmany Gar). #Depression with anxiety, patient is on Celexa 10 mg. Patient sees a psychiatrist / psychologist for his mental health. Today's PHQ-9 score is 3 indicating minimal concerns for depression. #Insomnia, patient is currently on Ambien to help with sleep. Continue current regimen. #Hyperlipidemia, patient has a history of elevated lipid leveles. Will obtain labs before next visit to further assess. Patient was educated and is aware of lifestyle modifications to make to improve levels. Time spent with patient 30 minutes or greater than 50% of patient occasion and care coronation Follow-up in 4 weeks, sooner as needed All quetsions answered to patients satisfaction. Patient verbalized understanding of diagnosis and treatments explained. To call sooner prior to next visit it any questions/concerns arise. Case discussed with collaborating physician Jennifer Gar who reviewed the assessment and plan. Chart, medications, labs, vital signs reviewed. Dictation was accomplished with the use of [employer] voice recognition software, prone to medical misidentifications and grammatical errors. This is unintentional and the practitioner does try to identify and correct these, but some could still be present. Please do not hesitate to contact practitioner for clarification. 11/20/2023 Morbid obesity (ICD-10 - E66.01) Heath is a 53-year-old male who presents the office for weight f/u. #Obesity 02/05/23: 309lbs, BMI 44. 11/07/02: 308.7 lbs, BMI: 44.29Patient was unable to find Wegovy that he was prescribed last visit. States that he is interested in Contrave as his mom is on this. I did discuss with him extensively risk of serotonin syndrome with use of Contrave due to its component of Wellbutrin and he is on Celexa. He states that his mom is on Celexa as well as utilizes Contrave. I discussed that I have no problem implementing this medication as long as he is aware of potential side effects with 2 antidepressants. Discussed extensively serotonin syndrome as a possible complication. Can send the medication to the pharmacy and if his insurance does not approve it can send to [facility]. Educated on potential side effects of medication and that he should avoid alcohol. Patient does not drink alcohol. Discussed potential insomnia. Educated on serotonin syndrome with Contrave and to monitor for signs and symptoms as well as potential suicidal ideation. We will follow-up in 4 weeks with SECA scale. 07/17/2023: Weight 309.86, BMI 42.02. He was originally seen in [place] where he was started on wegovy but it was not available at surrounding pharmacies. He was then see at our location where he was started on Contrave. He reports contrave was interferring with Celexa so patient self discontinued. Patient exercises frequently with resistance training and treadmill but has been constantly sick the past couple months so frequency has gone down. He reports his biggest barrier is diet, he knows he can make changes and eat out less. Patient does not have recent labs so we did in office HgbA1c with result of 6.3 indicating pre-diabetes. Based on these results, we will submit for Ozempic. Patient is aware that it may not get covered with prediabetic code. We had a sample in office and I gave that to patient today until we hear about Ozempic coverage. If Ozempic is denied, we will continue semaglutide here and office and submit for Wegovy once we reach a dose of 1mg. Seca was reviewed with patient. 09/12/23: Weight: 289.7 lbs, BMI 42.85. Patient has been getting Semaglutide 0.5 mg in office since he hasn't been able to get the injection at the pharmacy. Will resend Wegovy 1 mg Rx through insurance for approval. Patient recieved Semaglutide 0.5 mg in office today. Tolerating medication dose well with mild constipation but no other ADRs. Patient is still working on improving his diet, but is exercising 4x/week. 10/11/2023: Weight 294, BMI 42.18. Patient graduated an effort, continuing to lose slow, steady weight. Adamantly declined Wegovy 1 mg because he did not lose 5% of his weight, but patient has since lost 5% of his weight. Congratulated on effort, continue to try to exercise with upper body as his right ankle is healing from a recent fracture. Will increase semaglutide 1 mg in the meantime. 11/20/2023: Weight 292.3, BMI 41.94. Patient having some difficulty with exercise secondary to Achilles injury, following with orthopedics, getting MRI in the next few weeks. Otherwise, he states he is not making the best nutrition choices as well because he just expresses frustration in regards to the injury setting him back. Taking Wegovy 1 mg, will increase to Wegovy 1.7 but discussed the importance of lifestyle modifications in conjunction with weight loss for fat loss all trying to maintain muscle. Patient understanding. #Depression with anxiety, patient is on Celexa 10 mg. Patient sees a psychiatrist / psychologist for his mental health. Today's PHQ-9 score is 3 indicating minimal concerns for depression. #Insomnia, patient is currently on Ambien to help with sleep. Continue current regimen. #Hyperlipidemia, patient has a history of elevated lipid leveles. Will obtain labs before next visit to further assess. Patient was educated and is aware of lifestyle modifications to make to improve levels. Time spent with patient 30 minutes or greater than 50% of patient occasion and care coronation Follow-up for second shingles vaccine in 8 weeks, and for weight management 4 weeks after that visit. All quetsions answered to patients satisfaction. Patient verbalized understanding of diagnosis and treatments explained. To call sooner prior to next visit it any questions/concerns arise. Case discussed with collaborating physician Jennifer Gar who reviewed the assessment and plan. Chart, medications, labs, vital signs reviewed. Dictation was accomplished with the use of [employer] voice recognition software, prone to medical misidentifications and grammatical errors. This is unintentional and the practitioner does try to identify and correct these, but some could still be present. Please do not hesitate to contact practitioner for clarification. 12/02/2023 Morbid obesity (ICD-10 - E66.01) 01/15/2024 Morbid obesity (ICD-10 - E66.01) Heath is a 53-year-old male who presents the office for weight f/u. #Obesity 02/05/23: 309lbs, BMI 44. 04/10/23: 308.7 lbs, BMI: 44.29Patient was unable to find Wegovy that he was prescribed last visit. States that he is interested in Contrave as his mom is on this. I did discuss with him extensively risk of serotonin syndrome with use of Contrave due to its component of Wellbutrin and he is on Celexa. He states that his mom is on Celexa as well as utilizes Contrave. I discussed that I have no problem implementing this medication as long as he is aware of potential side effects with 2 antidepressants. Discussed extensively serotonin syndrome as a possible complication. Can send the medication to the pharmacy and if his insurance does not approve it can send to [facility]. Educated on potential side effects of medication and that he should avoid alcohol. Patient does not drink alcohol. Discussed potential insomnia. Educated on serotonin syndrome with Contrave and to monitor for signs and symptoms as well as potential suicidal ideation. We will follow-up in 4 weeks with SECA scale. 07/17/2023: Weight 309.86, BMI 42.02. He was originally seen in [place] where he was started on wegovy but it was not available at surrounding pharmacies. He was then see at our location where he was started on Contrave. He reports contrave was interferring with Celexa so patient self discontinued. Patient exercises frequently with resistance training and treadmill but has been constantly sick the past couple months so frequency has gone down. He reports his biggest barrier is diet, he knows he can make changes and eat out less. Patient does not have recent labs so we did in office HgbA1c with result of 6.3 indicating pre-diabetes. Based on these results, we will submit for Ozempic. Patient is aware that it may not get covered with prediabetic code. We had a sample in office and I gave that to patient today until we hear about Ozempic coverage. If Ozempic is denied, we will continue semaglutide here and office and submit for Wegovy once we reach a dose of 1mg. Seca was reviewed with patient. 09/12/23: Weight: 289.7 lbs, BMI 42.85. Patient has been getting Semaglutide 0.5 mg in office since he hasn't been able to get the injection at the pharmacy. Will resend Wegovy 1 mg Rx through insurance for approval. Patient recieved Semaglutide 0.5 mg in office today. Tolerating medication dose well with mild constipation but no other ADRs. Patient is still working on improving his diet, but is exercising 4x/week. 10/11/2023: Weight 294, BMI 42.18. Patient graduated an effort, continuing to lose slow, steady weight. Adamantly declined Wegovy 1 mg because he did not lose 5% of his weight, but patient has since lost 5% of his weight. Congratulated on effort, continue to try to exercise with upper body as his right ankle is healing from a recent fracture. Will increase semaglutide 1 mg in the meantime. 11/20/2023: Weight 292.3, BMI 41.94. Patient having some difficulty with exercise secondary to Achilles injury, following with orthopedics, getting MRI in the next few weeks. Otherwise, he states he is not making the best nutrition choices as well because he just expresses frustration in regards to the injury setting him back. Taking Wegovy 1 mg, will increase to Wegovy 1.7 but discussed the importance of lifestyle modifications in conjunction with weight loss for fat loss all trying to maintain muscle. Patient understanding. 01/15/2024: Weight 289, BMI 41.53: Continue with Wegovy 1.7 mg, exercise limited due to Achilles injury, but has clearance after the 16th of this month so is looking forward to getting back into a routine. Discussed lifestyle, continue Wegovy 1.7 mg until lifestyle habit changes continue to improve. # Patient going to obtain fasting blood work prior to next visit #Depression with anxiety, patient is on Celexa 10 mg. Patient sees a psychiatrist / psychologist for his mental health. Today's PHQ-9 score is 3 indicating minimal concerns for depression. #Insomnia, patient is currently on Ambien to help with sleep. Continue current regimen. #Hyperlipidemia, patient has a history of elevated lipid leveles. Patient was educated and is aware of lifestyle modifications to make to improve levels. Time spent with patient 30 minutes or greater than 50% of patient occasion and care coronation Patient to follow-up in 6 weeks, will review labs, obtain second shingles vaccine, and discussed weight management. All quetsions answered to patients satisfaction. Patient verbalized understanding of diagnosis and treatments explained. To call sooner prior to next visit it any questions/concerns arise. Case discussed with collaborating physician Jennifer Gar who reviewed the assessment and plan. Chart, medications, labs, vital signs reviewed. Dictation was accomplished with the use of [employer] voice recognition software, prone to medical misidentifications and grammatical errors. This is unintentional and the practitioner does try to identify and correct these, but some could still be present. Please do not hesitate to contact practitioner for clarification. 02/27/2024 Morbid obesity (ICD-10 - E66.01) Heath is a 53-year-old male who presents the office for weight f/u. #Obesity 02/05/23: 309lbs, BMI 44. 11/07/02: 308.7 lbs, BMI: 44.29Patient was unable to find Wegovy that he was prescribed last visit. States that he is interested in Contrave as his mom is on this. I did discuss with him extensively risk of serotonin syndrome with use of Contrave due to its component of Wellbutrin and he is on Celexa. He states that his mom is on Celexa as well as utilizes Contrave. I discussed that I have no problem implementing this medication as long as he is aware of potential side effects with 2 antidepressants. Discussed extensively serotonin syndrome as a possible complication. Can send the medication to the pharmacy and if his insurance does not approve it can send to [facility]. Educated on potential side effects of medication and that he should avoid alcohol. Patient does not drink alcohol. Discussed potential insomnia. Educated on serotonin syndrome with Contrave and to monitor for signs and symptoms as well as potential suicidal ideation. We will follow-up in 4 weeks with IESHAA scale. 07/17/2023: Weight 309.86, BMI 42.02. He was originally seen in [place] where he was started on wegovy but it was not available at surrounding pharmacies. He was then see at our location where he was started on Contrave. He reports contrave was interferring with Celexa so patient self discontinued. Patient exercises frequently with resistance training and treadmill but has been constantly sick the past couple months so frequency has gone down. He reports his biggest barrier is diet, he knows he can make changes and eat out less. Patient does not have recent labs so we did in office HgbA1c with result of 6.3 indicating pre-diabetes. Based on these results, we will submit for Ozempic. Patient is aware that it may not get covered with prediabetic code. We had a sample in office and I gave that to patient today until we hear about Ozempic coverage. If Ozempic is denied, we will continue semaglutide here and office and submit for Wegovy once we reach a dose of 1mg. Seca was reviewed with patient. 09/12/23: Weight: 289.7 lbs, BMI 42.85. Patient has been getting Semaglutide 0.5 mg in office since he hasn't been able to get the injection at the pharmacy. Will resend Wegovy 1 mg Rx through insurance for approval. Patient recieved Semaglutide 0.5 mg in office today. Tolerating medication dose well with mild constipation but no other ADRs. Patient is still working on improving his diet, but is exercising 4x/week. 10/11/2023: Weight 294, BMI 42.18. Patient graduated an effort, continuing to lose slow, steady weight. Adamantly declined Wegovy 1 mg because he did not lose 5% of his weight, but patient has since lost 5% of his weight. Congratulated on effort, continue to try to exercise with upper body as his right ankle is healing from a recent fracture. Will increase semaglutide 1 mg in the meantime. 11/20/2023: Weight 292.3, BMI 41.94. Patient having some difficulty with exercise secondary to Achilles injury, following with orthopedics, getting MRI in the next few weeks. Otherwise, he states he is not making the best nutrition choices as well because he just expresses frustration in regards to the injury setting him back. Taking Wegovy 1 mg, will increase to Wegovy 1.7 but discussed the importance of lifestyle modifications in conjunction with weight loss for fat loss all trying to maintain muscle. Patient understanding. 01/15/2024: Weight 289, BMI 41.53: Continue with Wegovy 1.7 mg, exercise limited due to Achilles injury, but has clearance after the 16th of this month so is looking forward to getting back into a routine. Discussed lifestyle, continue Wegovy 1.7 mg until lifestyle habit changes continue to improve. 02/27/2024: Weight 280, BMI 40. Patient congratulated, continuing to lose slow, steady weight. Continue with Wegovy 1.7 mg. Having left knee pain for which is being worked up by [facility] at this time so exercise is limited but working on higher protein and nutrition # Following with [facility] for left knee pain, awaiting MRI # Blood work reviewed from 02/24/2024, CBC, and cholesterol panel all within normal limits. Got blood work through his work, had physical 02/2024. States he does not want to do a physical through us as he gets it done through his work. Had EKG done at that time which was within normal limits. #Depression with anxiety, patient is on Celexa 10 mg. Patient sees a psychiatrist / psychologist for his mental health. Today's PHQ-9 score is 3 indicating minimal concerns for depression. #Insomnia, patient is currently on Ambien to help with sleep. Continue current regimen. Time spent with patient 30 minutes or greater than 50% of patient occasion and care coronation Patient to follow-up in 6 weeks, will review labs, obtain second shingles vaccine, and discussed weight management. All quetsions answered to patients satisfaction. Patient verbalized understanding of diagnosis and treatments explained. To call sooner prior to next visit it any questions/concerns arise. Case discussed with collaborating physician Jennifer Gar who reviewed the assessment and plan. Chart, medications, labs, vital signs reviewed. Dictation was accomplished with the use of [employer] voice recognition software, prone to medical misidentifications and grammatical errors. This is unintentional and the practitioner does try to identify and correct these, but some could still be present. Please do not hesitate to contact practitioner for clarification. 02/27/2024 BMI 40.0-44.9, adult (ICD-10 - Z68.41) Heath is a 53-year-old male who presents the office for weight f/u. #Obesity 02/05/23: 309lbs, BMI 44. 11/07/02: 308.7 lbs, BMI: 44.29Patient was unable to find Wegovy that he was prescribed last visit. States that he is interested in Contrave as his mom is on this. I did discuss with him extensively risk of serotonin syndrome with use of Contrave due to its component of Wellbutrin and he is on Celexa. He states that his mom is on Celexa as well as utilizes Contrave. I discussed that I have no problem implementing this medication as long as he is aware of potential side effects with 2 antidepressants. Discussed extensively serotonin syndrome as a possible complication. Can send the medication to the pharmacy and if his insurance does not approve it can send to [facility]. Educated on potential side effects of medication and that he should avoid alcohol. Patient does not drink alcohol. Discussed potential insomnia. Educated on serotonin syndrome with Contrave and to monitor for signs and symptoms as well as potential suicidal ideation. We will follow-up in 4 weeks with SECA scale. 07/17/2023: Weight 309.86, BMI 42.02. He was originally seen in [place] where he was started on wegovy but it was not available at surrounding pharmacies. He was then see at our location where he was started on Contrave. He reports contrave was interferring with Celexa so patient self discontinued. Patient exercises frequently with resistance training and treadmill but has been constantly sick the past couple months so frequency has gone down. He reports his biggest barrier is diet, he knows he can make changes and eat out less. Patient does not have recent labs so we did in office HgbA1c with result of 6.3 indicating pre-diabetes. Based on these results, we will submit for Ozempic. Patient is aware that it may not get covered with prediabetic code. We had a sample in office and I gave that to patient today until we hear about Ozempic coverage. If Ozempic is denied, we will continue semaglutide here and office and submit for Wegovy once we reach a dose of 1mg. Ieshaa was reviewed with patient. 09/12/23: Weight: 289.7 lbs, BMI 42.85. Patient has been getting Semaglutide 0.5 mg in office since he hasn't been able to get the injection at the pharmacy. Will resend Wegovy 1 mg Rx through insurance for approval. Patient recieved Semaglutide 0.5 mg in office today. Tolerating medication dose well with mild constipation but no other ADRs. Patient is still working on improving his diet, but is exercising 4x/week. 10/11/2023: Weight 294, BMI 42.18. Patient graduated an effort, continuing to lose slow, steady weight. Adamantly declined Wegovy 1 mg because he did not lose 5% of his weight, but patient has since lost 5% of his weight. Congratulated on effort, continue to try to exercise with upper body as his right ankle is healing from a recent fracture. Will increase semaglutide 1 mg in the meantime. 11/20/2023: Weight 292.3, BMI 41.94. Patient having some difficulty with exercise secondary to Achilles injury, following with orthopedics, getting MRI in the next few weeks. Otherwise, he states he is not making the best nutrition choices as well because he just expresses frustration in regards to the injury setting him back. Taking Wegovy 1 mg, will increase to Wegovy 1.7 but discussed the importance of lifestyle modifications in conjunction with weight loss for fat loss all trying to maintain muscle. Patient understanding. 01/15/2024: Weight 289, BMI 41.53: Continue with Wegovy 1.7 mg, exercise limited due to Achilles injury, but has clearance after the 16th of this month so is looking forward to getting back into a routine. Discussed lifestyle, continue Wegovy 1.7 mg until lifestyle habit changes continue to improve. 02/27/2024: Weight 280, BMI 40. Patient congratulated, continuing to lose slow, steady weight. Continue with Wegovy 1.7 mg. Having left knee pain for which is being worked up by [facility] at this time so exercise is limited but working on higher protein and nutrition # Following with [facility] for left knee pain, awaiting MRI # Blood work reviewed from 02/24/2024, CBC, and cholesterol panel all within normal limits. Got blood work through his work, had physical 02/2024. States he does not want to do a physical through us as he gets it done through his work. Had EKG done at that time which was within normal limits. #Depression with anxiety, patient is on Celexa 10 mg. Patient sees a psychiatrist / psychologist for his mental health. Today's PHQ-9 score is 3 indicating minimal concerns for depression. #Insomnia, patient is currently on Ambien to help with sleep. Continue current regimen. Time spent with patient 30 minutes or greater than 50% of patient occasion and care coronation Patient to follow-up in 6 weeks, will review labs, obtain second shingles vaccine, and discussed weight management. All quetsions answered to patients satisfaction. Patient verbalized understanding of diagnosis and treatments explained. To call sooner prior to next visit it any questions/concerns arise. Case discussed with collaborating physician Jennifer Gar who reviewed the assessment and plan. Chart, medications, labs, vital signs reviewed. Dictation was accomplished with the use of [employer] voice recognition software, prone to medical misidentifications and grammatical errors. This is unintentional and the practitioner does try to identify and correct these, but some could still be present. Please do not hesitate to contact practitioner for clarification. 02/27/2024 Depression with anxiety (ICD-10 - F41.8) Heath is a 53-year-old male who presents the office for weight f/u. #Obesity 02/05/23: 309lbs, BMI 44. 04/10/23: 308.7 lbs, BMI: 44.29Patient was unable to find Wegovy that he was prescribed last visit. States that he is interested in Contrave as his mom is on this. I did discuss with him extensively risk of serotonin syndrome with use of Contrave due to its component of Wellbutrin and he is on Celexa. He states that his mom is on Celexa as well as utilizes Contrave. I discussed that I have no problem implementing this medication as long as he is aware of potential side effects with 2 antidepressants. Discussed extensively serotonin syndrome as a possible complication. Can send the medication to the pharmacy and if his insurance does not approve it can send to [facility]. Educated on potential side effects of medication and that he should avoid alcohol. Patient does not drink alcohol. Discussed potential insomnia. Educated on serotonin syndrome with Contrave and to monitor for signs and symptoms as well as potential suicidal ideation. We will follow-up in 4 weeks with SECA scale. 07/17/2023: Weight 309.86, BMI 42.02. He was originally seen in [place] where he was started on wegovy but it was not available at surrounding pharmacies. He was then see at our location where he was started on Contrave. He reports contrave was interferring with Celexa so patient self discontinued. Patient exercises frequently with resistance training and treadmill but has been constantly sick the past couple months so frequency has gone down. He reports his biggest barrier is diet, he knows he can make changes and eat out less. Patient does not have recent labs so we did in office HgbA1c with result of 6.3 indicating pre-diabetes. Based on these results, we will submit for Ozempic. Patient is aware that it may not get covered with prediabetic code. We had a sample in office and I gave that to patient today until we hear about Ozempic coverage. If Ozempic is denied, we will continue semaglutide here and office and submit for Wegovy once we reach a dose of 1mg. Seca was reviewed with patient. 09/12/23: Weight: 289.7 lbs, BMI 42.85. Patient has been getting Semaglutide 0.5 mg in office since he hasn't been able to get the injection at the pharmacy. Will resend Wegovy 1 mg Rx through insurance for approval. Patient recieved Semaglutide 0.5 mg in office today. Tolerating medication dose well with mild constipation but no other ADRs. Patient is still working on improving his diet, but is exercising 4x/week. 10/11/2023: Weight 294, BMI 42.18. Patient graduated an effort, continuing to lose slow, steady weight. Adamantly declined Wegovy 1 mg because he did not lose 5% of his weight, but patient has since lost 5% of his weight. Congratulated on effort, continue to try to exercise with upper body as his right ankle is healing from a recent fracture. Will increase semaglutide 1 mg in the meantime. 11/20/2023: Weight 292.3, BMI 41.94. Patient having some difficulty with exercise secondary to Achilles injury, following with orthopedics, getting MRI in the next few weeks. Otherwise, he states he is not making the best nutrition choices as well because he just expresses frustration in regards to the injury setting him back. Taking Wegovy 1 mg, will increase to Wegovy 1.7 but discussed the importance of lifestyle modifications in conjunction with weight loss for fat loss all trying to maintain muscle. Patient understanding. 01/15/2024: Weight 289, BMI 41.53: Continue with Wegovy 1.7 mg, exercise limited due to Achilles injury, but has clearance after the 16th of this month so is looking forward to getting back into a routine. Discussed lifestyle, continue Wegovy 1.7 mg until lifestyle habit changes continue to improve. 02/27/2024: Weight 280, BMI 40. Patient congratulated, continuing to lose slow, steady weight. Continue with Wegovy 1.7 mg. Having left knee pain for which is being worked up by [facility] at this time so exercise is limited but working on higher protein and nutrition # Following with [facility] for left knee pain, awaiting MRI # Blood work reviewed from 02/24/2024, CBC, and cholesterol panel all within normal limits. Got blood work through his work, had physical 02/2024. States he does not want to do a physical through us as he gets it done through his work. Had EKG done at that time which was within normal limits. #Depression with anxiety, patient is on Celexa 10 mg. Patient sees a psychiatrist / psychologist for his mental health. Today's PHQ-9 score is 3 indicating minimal concerns for depression. #Insomnia, patient is currently on Ambien to help with sleep. Continue current regimen. Time spent with patient 30 minutes or greater than 50% of patient occasion and care coronation Patient to follow-up in 6 weeks, will review labs, obtain second shingles vaccine, and discussed weight management. All quetsions answered to patients satisfaction. Patient verbalized understanding of diagnosis and treatments explained. To call sooner prior to next visit it any questions/concerns arise. Case discussed with collaborating physician Jennifer Gar who reviewed the assessment and plan. Chart, medications, labs, vital signs reviewed. Dictation was accomplished with the use of [employer] voice recognition software, prone to medical misidentifications and grammatical errors. This is unintentional and the practitioner does try to identify and correct these, but some could still be present. Please do not hesitate to contact practitioner for clarification. 01/15/2024 BMI 40.0-44.9, adult (ICD-10 - Z68.41) Heath is a 53-year-old male who presents the office for weight f/u. #Obesity 02/05/23: 309lbs, BMI 44. 11/07/02: 308.7 lbs, BMI: 44.29Patient was unable to find Wegovy that he was prescribed last visit. States that he is interested in Contrave as his mom is on this. I did discuss with him extensively risk of serotonin syndrome with use of Contrave due to its component of Wellbutrin and he is on Celexa. He states that his mom is on Celexa as well as utilizes Contrave. I discussed that I have no problem implementing this medication as long as he is aware of potential side effects with 2 antidepressants. Discussed extensively serotonin syndrome as a possible complication. Can send the medication to the pharmacy and if his insurance does not approve it can send to [facility]. Educated on potential side effects of medication and that he should avoid alcohol. Patient does not drink alcohol. Discussed potential insomnia. Educated on serotonin syndrome with Contrave and to monitor for signs and symptoms as well as potential suicidal ideation. We will follow-up in 4 weeks with SECA scale. 07/17/2023: Weight 309.86, BMI 42.02. He was originally seen in [place] where he was started on wegovy but it was not available at surrounding pharmacies. He was then see at our location where he was started on Contrave. He reports contrave was interferring with Celexa so patient self discontinued. Patient exercises frequently with resistance training and treadmill but has been constantly sick the past couple months so frequency has gone down. He reports his biggest barrier is diet, he knows he can make changes and eat out less. Patient does not have recent labs so we did in office HgbA1c with result of 6.3 indicating pre-diabetes. Based on these results, we will submit for Ozempic. Patient is aware that it may not get covered with prediabetic code. We had a sample in office and I gave that to patient today until we hear about Ozempic coverage. If Ozempic is denied, we will continue semaglutide here and office and submit for Wegovy once we reach a dose of 1mg. Seca was reviewed with patient. 09/12/23: Weight: 289.7 lbs, BMI 42.85. Patient has been getting Semaglutide 0.5 mg in office since he hasn't been able to get the injection at the pharmacy. Will resend Wegovy 1 mg Rx through insurance for approval. Patient recieved Semaglutide 0.5 mg in office today. Tolerating medication dose well with mild constipation but no other ADRs. Patient is still working on improving his diet, but is exercising 4x/week. 10/11/2023: Weight 294, BMI 42.18. Patient graduated an effort, continuing to lose slow, steady weight. Adamantly declined Wegovy 1 mg because he did not lose 5% of his weight, but patient has since lost 5% of his weight. Congratulated on effort, continue to try to exercise with upper body as his right ankle is healing from a recent fracture. Will increase semaglutide 1 mg in the meantime. 11/20/2023: Weight 292.3, BMI 41.94. Patient having some difficulty with exercise secondary to Achilles injury, following with orthopedics, getting MRI in the next few weeks. Otherwise, he states he is not making the best nutrition choices as well because he just expresses frustration in regards to the injury setting him back. Taking Wegovy 1 mg, will increase to Wegovy 1.7 but discussed the importance of lifestyle modifications in conjunction with weight loss for fat loss all trying to maintain muscle. Patient understanding. 01/15/2024: Weight 289, BMI 41.53: Continue with Wegovy 1.7 mg, exercise limited due to Achilles injury, but has clearance after the th of this month so is looking forward to getting back into a routine. Discussed lifestyle, continue Wegovy 1.7 mg until lifestyle habit changes continue to improve. # Patient going to obtain fasting blood work prior to next visit #Depression with anxiety, patient is on Celexa 10 mg. Patient sees a psychiatrist / psychologist for his mental health. Today's PHQ-9 score is 3 indicating minimal concerns for depression. #Insomnia, patient is currently on Ambien to help with sleep. Continue current regimen. #Hyperlipidemia, patient has a history of elevated lipid leveles. Patient was educated and is aware of lifestyle modifications to make to improve levels. Time spent with patient 30 minutes or greater than 50% of patient occasion and care coronation Patient to follow-up in 6 weeks, will review labs, obtain second shingles vaccine, and discussed weight management. All quetsions answered to patients satisfaction. Patient verbalized understanding of diagnosis and treatments explained. To call sooner prior to next visit it any questions/concerns arise. Case discussed with collaborating physician Jennifer Gar who reviewed the assessment and plan. Chart, medications, labs, vital signs reviewed. Dictation was accomplished with the use of [employer] voice recognition software, prone to medical misidentifications and grammatical errors. This is unintentional and the practitioner does try to identify and correct these, but some could still be present. Please do not hesitate to contact practitioner for clarification. 11/20/2023 BMI 40.0-44.9, adult (ICD-10 - Z68.41) Heath is a 53-year-old male who presents the office for weight f/u. #Obesity 02/05/23: 309lbs, BMI 44. 04/10/23: 308.7 lbs, BMI: 44.29Patient was unable to find Wegovy that he was prescribed last visit. States that he is interested in Contrave as his mom is on this. I did discuss with him extensively risk of serotonin syndrome with use of Contrave due to its component of Wellbutrin and he is on Celexa. He states that his mom is on Celexa as well as utilizes Contrave. I discussed that I have no problem implementing this medication as long as he is aware of potential side effects with 2 antidepressants. Discussed extensively serotonin syndrome as a possible complication. Can send the medication to the pharmacy and if his insurance does not approve it can send to [facility]. Educated on potential side effects of medication and that he should avoid alcohol. Patient does not drink alcohol. Discussed potential insomnia. Educated on serotonin syndrome with Contrave and to monitor for signs and symptoms as well as potential suicidal ideation. We will follow-up in 4 weeks with SECA scale. 07/17/2023: Weight 309.86, BMI 42.02. He was originally seen in [place] where he was started on wegovy but it was not available at surrounding pharmacies. He was then see at our location where he was started on Contrave. He reports contrave was interferring with Celexa so patient self discontinued. Patient exercises frequently with resistance training and treadmill but has been constantly sick the past couple months so frequency has gone down. He reports his biggest barrier is diet, he knows he can make changes and eat out less. Patient does not have recent labs so we did in office HgbA1c with result of 6.3 indicating pre-diabetes. Based on these results, we will submit for Ozempic. Patient is aware that it may not get covered with prediabetic code. We had a sample in office and I gave that to patient today until we hear about Ozempic coverage. If Ozempic is denied, we will continue semaglutide here and office and submit for Wegovy once we reach a dose of 1mg. Seca was reviewed with patient. 09/12/23: Weight: 289.7 lbs, BMI 42.85. Patient has been getting Semaglutide 0.5 mg in office since he hasn't been able to get the injection at the pharmacy. Will resend Wegovy 1 mg Rx through insurance for approval. Patient recieved Semaglutide 0.5 mg in office today. Tolerating medication dose well with mild constipation but no other ADRs. Patient is still working on improving his diet, but is exercising 4x/week. 10/11/2023: Weight 294, BMI 42.18. Patient graduated an effort, continuing to lose slow, steady weight. Adamantly declined Wegovy 1 mg because he did not lose 5% of his weight, but patient has since lost 5% of his weight. Congratulated on effort, continue to try to exercise with upper body as his right ankle is healing from a recent fracture. Will increase semaglutide 1 mg in the meantime. 11/20/2023: Weight 292.3, BMI 41.94. Patient having some difficulty with exercise secondary to Achilles injury, following with orthopedics, getting MRI in the next few weeks. Otherwise, he states he is not making the best nutrition choices as well because he just expresses frustration in regards to the injury setting him back. Taking Wegovy 1 mg, will increase to Wegovy 1.7 but discussed the importance of lifestyle modifications in conjunction with weight loss for fat loss all trying to maintain muscle. Patient understanding. #Depression with anxiety, patient is on Celexa 10 mg. Patient sees a psychiatrist / psychologist for his mental health. Today's PHQ-9 score is 3 indicating minimal concerns for depression. #Insomnia, patient is currently on Ambien to help with sleep. Continue current regimen. #Hyperlipidemia, patient has a history of elevated lipid leveles. Will obtain labs before next visit to further assess. Patient was educated and is aware of lifestyle modifications to make to improve levels. Time spent with patient 30 minutes or greater than 50% of patient occasion and care coronation Follow-up for second shingles vaccine in 8 weeks, and for weight management 4 weeks after that visit. All quetsions answered to patients satisfaction. Patient verbalized understanding of diagnosis and treatments explained. To call sooner prior to next visit it any questions/concerns arise. Case discussed with collaborating physician Jennifer Gar who reviewed the assessment and plan. Chart, medications, labs, vital signs reviewed. Dictation was accomplished with the use of [employer] voice recognition software, prone to medical misidentifications and grammatical errors. This is unintentional and the practitioner does try to identify and correct these, but some could still be present. Please do not hesitate to contact practitioner for clarification. 10/11/2023 Numbness of hand (ICD-10 - R20.0) Heath is a 53-year-old male who presents the office for weight f/u. #Obesity 02/05/23: 309lbs, BMI 44. 04/10/23: 308.7 lbs, BMI: 44.29Patient was unable to find Wegovy that he was prescribed last visit. States that he is interested in Contrave as his mom is on this. I did discuss with him extensively risk of serotonin syndrome with use of Contrave due to its component of Wellbutrin and he is on Celexa. He states that his mom is on Celexa as well as utilizes Contrave. I discussed that I have no problem implementing this medication as long as he is aware of potential side effects with 2 antidepressants. Discussed extensively serotonin syndrome as a possible complication. Can send the medication to the pharmacy and if his insurance does not approve it can send to [facility]. Educated on potential side effects of medication and that he should avoid alcohol. Patient does not drink alcohol. Discussed potential insomnia. Educated on serotonin syndrome with Contrave and to monitor for signs and symptoms as well as potential suicidal ideation. We will follow-up in 4 weeks with SECA scale. 07/17/2023: Weight 309.86, BMI 42.02. He was originally seen in [place] where he was started on wegovy but it was not available at surrounding pharmacies. He was then see at our location where he was started on Contrave. He reports contrave was interferring with Celexa so patient self discontinued. Patient exercises frequently with resistance training and treadmill but has been constantly sick the past couple months so frequency has gone down. He reports his biggest barrier is diet, he knows he can make changes and eat out less. Patient does not have recent labs so we did in office HgbA1c with result of 6.3 indicating pre-diabetes. Based on these results, we will submit for Ozempic. Patient is aware that it may not get covered with prediabetic code. We had a sample in office and I gave that to patient today until we hear about Ozempic coverage. If Ozempic is denied, we will continue semaglutide here and office and submit for Wegovy once we reach a dose of 1mg. Seca was reviewed with patient. 09/12/23: Weight: 289.7 lbs, BMI 42.85. Patient has been getting Semaglutide 0.5 mg in office since he hasn't been able to get the injection at the pharmacy. Will resend Wegovy 1 mg Rx through insurance for approval. Patient recieved Semaglutide 0.5 mg in office today. Tolerating medication dose well with mild constipation but no other ADRs. Patient is still working on improving his diet, but is exercising 4x/week. 10/11/2023: Weight 294, BMI 42.18. Patient graduated an effort, continuing to lose slow, steady weight. Adamantly declined Wegovy 1 mg because he did not lose 5% of his weight, but patient has since lost 5% of his weight. Congratulated on effort, continue to try to exercise with upper body as his right ankle is healing from a recent fracture. Will increase semaglutide 1 mg in the meantime. After consultation and careful review of medical history, this patient would benefit from Wegovy based off of the following criteria met: Patient is over the age of 18, has a BMI of 42. Additional comorbidities include hyperlipidemia. Patient has trialed other methods of weight loss including improving diet, exercise without success over three months. This medication is prescribed by or in consultation with a board certified obesity and weight management physician (Dr. Kyra Gar or Dr. Yasmany Gar). #Depression with anxiety, patient is on Celexa 10 mg. Patient sees a psychiatrist / psychologist for his mental health. Today's PHQ-9 score is 3 indicating minimal concerns for depression. #Insomnia, patient is currently on Ambien to help with sleep. Continue current regimen. #Hyperlipidemia, patient has a history of elevated lipid leveles. Will obtain labs before next visit to further assess. Patient was educated and is aware of lifestyle modifications to make to improve levels. Time spent with patient 30 minutes or greater than 50% of patient occasion and care coronation Follow-up in 4 weeks, sooner as needed All quetsions answered to patients satisfaction. Patient verbalized understanding of diagnosis and treatments explained. To call sooner prior to next visit it any questions/concerns arise. Case discussed with collaborating physician Jennifer Gar who reviewed the assessment and plan. Chart, medications, labs, vital signs reviewed. Dictation was accomplished with the use of [employer] voice recognition software, prone to medical misidentifications and grammatical errors. This is unintentional and the practitioner does try to identify and correct these, but some could still be present. Please do not hesitate to contact practitioner for clarification. 09/12/2023 Morbid obesity (ICD-10 - E66.01) Heath is a 53-year-old male who presents the office for complete physical exam # Patient up-to-date on all routine screening and vaccines, will obtain shingles #1 today, get second shingles dose in the next 4 to 6 months. Educated on proper use, side effects. #Numbness / Tingling of Right Hand: patient states he has numbness and tingling of the right 4th and 5th digits of the hand that has been present 70% of the time in the last four weeks. 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 Denies muscle weakness or loss of full ROM. PE was WNL, neurovasularly intact, and negative Tinnel and De Quervian tests. Patient educated that this may be an side effect of the Semaglutide injection and we can stop injection if patient would like. Patient isn't too concerned at this point and would like to continue with medication. Education given to patient that he should contact us or visit the ER if numbness / tingling spreads up arm, becomes worse, or experiences muscle weakness / loss of control of fingers. #Obesity 02/05/23: 309lbs, BMI 44. 04/10/23: 308.7 lbs, BMI: 44.29Patient was unable to find Wegovy that he was prescribed last visit. States that he is interested in Contrave as his mom is on this. I did discuss with him extensively risk of serotonin syndrome with use of Contrave due to its component of Wellbutrin and he is on Celexa. He states that his mom is on Celexa as well as utilizes Contrave. I discussed that I have no problem implementing this medication as long as he is aware of potential side effects with 2 antidepressants. Discussed extensively serotonin syndrome as a possible complication. Can send the medication to the pharmacy and if his insurance does not approve it can send to [facility]. Educated on potential side effects of medication and that he should avoid alcohol. Patient does not drink alcohol. Discussed potential insomnia. Educated on serotonin syndrome with Contrave and to monitor for signs and symptoms as well as potential suicidal ideation. We will follow-up in 4 weeks with SECA scale. 07/17/2023: Weight 309.86, BMI 42.02. He was originally seen in [place] where he was started on wegovy but it was not available at surrounding pharmacies. He was then see at our location where he was started on Contrave. He reports contrave was interferring with Celexa so patient self discontinued. Patient exercises frequently with resistance training and treadmill but has been constantly sick the past couple months so frequency has gone down. He reports his biggest barrier is diet, he knows he can make changes and eat out less. Patient does not have recent labs so we did in office HgbA1c with result of 6.3 indicating pre-diabetes. Based on these results, we will submit for Ozempic. Patient is aware that it may not get covered with prediabetic code. We had a sample in office and I gave that to patient today until we hear about Ozempic coverage. If Ozempic is denied, we will continue semaglutide here and office and submit for Wegovy once we reach a dose of 1mg. Seca was reviewed with patient. 09/12/23: Weight: 289.7 lbs, BMI 42.85. Patient has been getting Semaglutide 0.5 mg in office since he hasn't been able to get the injection at the pharmacy. Will resend Wegovy 1 mg Rx through insurance for approval. Patient recieved Semaglutide 0.5 mg in office today. Tolerating medication dose well with mild constipation but no other ADRs. Patient is still working on improving his diet, but is exercising 4x/week. After consultation and careful review of medical history, this patient would benefit from Wegovy based off of the following criteria met: Patient is over the age of 18, has a BMI of 42. Additional comorbidities include depression, hyperlipidemia. Patient has trialed other methods of weight loss including improving diet, exercise without success over three months. This medication is prescribed by or in consultation with a board certified obesity and weight management physician (Dr. Kyra Gar or Dr. Yasmany Gar). #Depression with anxiety, patient is on Celexa 10 mg. Patient sees a psychiatrist / psychologist for his mental health. Today's PHQ-9 score is 3 indicating minimal concerns for depression. # Will obtain fasting blood work today #Insomnia, patient is currently on Ambien to help with sleep. Continue current regimen. #Hyperlipidemia, patient has a history of elevated lipid leveles. Will obtain labs before next visit to further assess. Patient was educated and is aware of lifestyle modifications to make to improve levels. Patient has pending lab orders for CBC, CMP, TSH, PSA LIPID and urine testing. Will be completed prior to next visit. Patient following up in 4 weeks for weight loss managment visit or sooner PRN. Patient seen and examined. Comprehensive discussion was done on the following. 1. Nutrition: It is important to follow a healthy diet based on lots of vegetables and legumes and good fat. Avoid processed food and processed carbohydrates. Prepare your own meals. Read labels and avoid high fructose corn syrup, processed chemicals added to increase shelf life and preprepared meals. Avoid fast foods. Eat slowly and plan meals for a week. Try to count calories and be mindful of daily calorie intake. Get into the habit of keeping an eye on your weight by using an appropriate scale. Learn to log exercise and discussed fitness Apps like [employer] which can help keep log off calories taken versus calories burned. Local food should be preferred. Discussed Dirty Dozen Versus Clean Fifteen. Discussed healthy supplements like fish oil, Tumeric, Curcumin, Melatonin, Resveratrol, Probiotics, Vitamin-D, Alpha-Lipoic acid, Vitamin-D and coconut oil. 2. It is important to exercise regularly. Is a good habit to walk at least 30 minutes a day. Gentle weightlifting with standard precautions to protect the back. Finding activity like cycling or hiking and get into the habit of engaging in it. Stretching before and after the exercises important. It is also important to contact me if there are any problems like shortness of breath, chest pain, back pain and joint or muscle pain associated with the exercise. 3. Discussed age appropriate screening guidelines. Colonoscopy needs to start at age 50 with stool for occult blood as appropriate. There is a new test that can test for genetic abnormalities in the stool sample, Cologuard. This would not replace a colonoscopy but could be used as a screening tool for patients who do not want a colonoscopy. We discussed the importance of early detection of colon cancer. 4. Discussed current PSA screening. PSA screening can be done in most patients between age 50 and 65. However early detection of prostate cancer needs to carefully be balanced with complications with treatment. These include incontinence, impotence etc. Each patient should decide if they would like to have this test. 5. Discussed safe driving and no use of smart phone while driving 6. Age-appropriate immunizations were discussed. A tetanus booster is needed every 10 years. Flu vaccine is recommended every year just before the start of the flu season. Shingles vaccine is recommended after age 50 but not all insurances cover it. Pneumonia vaccine is given after age 65 unless there are certain comorbidities for which it is started earlier. 7. Diagnostic labs were discussed. These could include/not limited to CBC CMP and lipids with fasting blood glucose and insulin levels. Vitamin D and hemoglobin A1c testing might be appropriate. All quetsions answered to patients satisfaction. Patient verbalized understanding of diagnosis and treatments explained. To call sooner prior to next visit it any questions/concerns arise. Case discussed with collaborating physician Jennifer Gar who reviewed the assessment and plan. Chart, medications, labs, vital signs reviewed. Dictation was accomplished with the use of [employer] voice recognition software, prone to medical misidentifications and grammatical errors. This is unintentional and the practitioner does try to identify and correct these, but some could still be present. Please do not hesitate to contact practitioner for clarification. 07/17/2023 Depression with anxiety (ICD-10 - F41.8) #obesity 02/05/23: 309lbs, BMI 44. 11/07/02: 308.7 lbs, BMI: 44.29Patient was unable to find Wegovy that he was prescribed last visit. States that he is interested in Contrave as his mom is on this. I did discuss with him extensively risk of serotonin syndrome with use of Contrave due to its component of Wellbutrin and he is on Celexa. He states that his mom is on Celexa as well as utilizes Contrave. I discussed that I have no problem implementing this medication as long as he is aware of potential side effects with 2 antidepressants. Discussed extensively serotonin syndrome as a possible complication. Can send the medication to the pharmacy and if his insurance does not approve it can send to [facility]. Educated on potential side effects of medication and that he should avoid alcohol. Patient does not drink alcohol. Discussed potential insomnia. Educated on serotonin syndrome with Contrave and to monitor for signs and symptoms as well as potential suicidal ideation. We will follow-up in 4 weeks with SECA scale. #07/17/2023: Weight 309.86, BMI 42.02. He was originally seen in [place] where he was started on wegovy but it was not available at surrounding pharmacies. He was then see at our location where he was started on Contrave. He reports contrave was interferring with Celexa so patient self discontinued. Patient exercises frequently with resistance training and treadmill but has been constantly sick the past couple months so frequency has gone down. He reports his biggest barrier is diet, he knows he can make changes and eat out less. Patient does not have recent labs so we did in office HgbA1c with result of 6.3 indicating pre-diabetes. Based on these results, we will submit for Ozempic. Patient is aware that it may not get covered with prediabetic code. We had a sample in office and I gave that to patient today until we hear about Ozempic coverage. If Ozempic is denied, we will continue semaglutide here and office and submit for Wegovy once we reach a dose of 1mg. Seca was reviewed with patient. #Depression with anxiety, patient is on Celexa 10 mg. Educated on serotonin syndrome with Contrave and to monitor for signs and symptoms as well as potential suicidal ideation. #Insomnia, patient is currently on zolpidem for help with sleep. Educated on continued compliance with this medication. #Hyperlipidemia, patient had elevated lipid levels educated on dietary lifestyle changes. Patient following up for complete physical in 6 to 8 weeks, sooner as needed. Working on Ozempic coverage in the meantime Time spent with patient 30 minutes with greater than 50% of patient occasion and care coordination All quetsions answered to patients satisfaction. Patient verbalized understanding of diagnosis and treatments explained. To call sooner prior to next visit it any questions/concerns arise. Case discussed with collaborating physician Jennifer Gar who reviewed the assessment and plan. Chart, medications, labs, vital signs reviewed. Dictation was accomplished with the use of [employer] voice recognition software, prone to medical misidentifications and grammatical errors. This is unintentional and the practitioner does try to identify and correct these, but some could still be present. Please do not hesitate to contact practitioner for clarification. 07/17/2023 Primary insomnia (ICD-10 - F51.01) #obesity 02/05/23: 309lbs, BMI 44. 04/10/23: 308.7 lbs, BMI: 44.29Patient was unable to find Wegovy that he was prescribed last visit. States that he is interested in Contrave as his mom is on this. I did discuss with him extensively risk of serotonin syndrome with use of Contrave due to its component of Wellbutrin and he is on Celexa. He states that his mom is on Celexa as well as utilizes Contrave. I discussed that I have no problem implementing this medication as long as he is aware of potential side effects with 2 antidepressants. Discussed extensively serotonin syndrome as a possible complication. Can send the medication to the pharmacy and if his insurance does not approve it can send to [facility]. Educated on potential side effects of medication and that he should avoid alcohol. Patient does not drink alcohol. Discussed potential insomnia. Educated on serotonin syndrome with Contrave and to monitor for signs and symptoms as well as potential suicidal ideation. We will follow-up in 4 weeks with JOSEY scale. #07/17/2023: Weight 309.86, BMI 42.02. He was originally seen in [place] where he was started on wegovy but it was not available at surrounding pharmacies. He was then see at our location where he was started on Contrave. He reports contrave was interferring with Celexa so patient self discontinued. Patient exercises frequently with resistance training and treadmill but has been constantly sick the past couple months so frequency has gone down. He reports his biggest barrier is diet, he knows he can make changes and eat out less. Patient does not have recent labs so we did in office HgbA1c with result of 6.3 indicating pre-diabetes. Based on these results, we will submit for Ozempic. Patient is aware that it may not get covered with prediabetic code. We had a sample in office and I gave that to patient today until we hear about Ozempic coverage. If Ozempic is denied, we will continue semaglutide here and office and submit for Wegovy once we reach a dose of 1mg. Seca was reviewed with patient. #Depression with anxiety, patient is on Celexa 10 mg. Educated on serotonin syndrome with Contrave and to monitor for signs and symptoms as well as potential suicidal ideation. #Insomnia, patient is currently on zolpidem for help with sleep. Educated on continued compliance with this medication. #Hyperlipidemia, patient had elevated lipid levels educated on dietary lifestyle changes. Patient following up for complete physical in 6 to 8 weeks, sooner as needed. Working on Ozempic coverage in the meantime Time spent with patient 30 minutes with greater than 50% of patient occasion and care coordination All quetsions answered to patients satisfaction. Patient verbalized understanding of diagnosis and treatments explained. To call sooner prior to next visit it any questions/concerns arise. Case discussed with collaborating physician Jennifer Gar who reviewed the assessment and plan. Chart, medications, labs, vital signs reviewed. Dictation was accomplished with the use of [employer] voice recognition software, prone to medical misidentifications and grammatical errors. This is unintentional and the practitioner does try to identify and correct these, but some could still be present. Please do not hesitate to contact practitioner for clarification. 09/12/2023 BMI 40.0-44.9, adult (ICD-10 - Z68.41) Heath is a 53-year-old male who presents the office for complete physical exam # Patient up-to-date on all routine screening and vaccines, will obtain shingles #1 today, get second shingles dose in the next 4 to 6 months. Educated on proper use, side effects. #Numbness / Tingling of Right Hand: patient states he has numbness and tingling of the right 4th and 5th digits of the hand that has been present 70% of the time in the last four weeks. 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 Denies muscle weakness or loss of full ROM. PE was WNL, neurovasularly intact, and negative Tinnel and De Quervian tests. Patient educated that this may be an side effect of the Semaglutide injection and we can stop injection if patient would like. Patient isn't too concerned at this point and would like to continue with medication. Education given to patient that he should contact us or visit the ER if numbness / tingling spreads up arm, becomes worse, or experiences muscle weakness / loss of control of fingers. #Obesity 02/05/23: 309lbs, BMI 44. 04/10/23: 308.7 lbs, BMI: 44.29Patient was unable to find Weziggyvy that he was prescribed last visit. States that he is interested in Contrave as his mom is on this. I did discuss with him extensively risk of serotonin syndrome with use of Contrave due to its component of Wellbutrin and he is on Celexa. He states that his mom is on Celexa as well as utilizes Contrave. I discussed that I have no problem implementing this medication as long as he is aware of potential side effects with 2 antidepressants. Discussed extensively serotonin syndrome as a possible complication. Can send the medication to the pharmacy and if his insurance does not approve it can send to [facility]. Educated on potential side effects of medication and that he should avoid alcohol. Patient does not drink alcohol. Discussed potential insomnia. Educated on serotonin syndrome with Contrave and to monitor for signs and symptoms as well as potential suicidal ideation. We will follow-up in 4 weeks with SECA scale. 07/17/2023: Weight 309.86, BMI 42.02. He was originally seen in [place] where he was started on wegovy but it was not available at surrounding pharmacies. He was then see at our location where he was started on Contrave. He reports contrave was interferring with Celexa so patient self discontinued. Patient exercises frequently with resistance training and treadmill but has been constantly sick the past couple months so frequency has gone down. He reports his biggest barrier is diet, he knows he can make changes and eat out less. Patient does not have recent labs so we did in office HgbA1c with result of 6.3 indicating pre-diabetes. Based on these results, we will submit for Ozempic. Patient is aware that it may not get covered with prediabetic code. We had a sample in office and I gave that to patient today until we hear about Ozempic coverage. If Ozempic is denied, we will continue semaglutide here and office and submit for Wegovy once we reach a dose of 1mg. Seca was reviewed with patient. 09/12/23: Weight: 289.7 lbs, BMI 42.85. Patient has been getting Semaglutide 0.5 mg in office since he hasn't been able to get the injection at the pharmacy. Will resend Wegovy 1 mg Rx through insurance for approval. Patient recieved Semaglutide 0.5 mg in office today. Tolerating medication dose well with mild constipation but no other ADRs. Patient is still working on improving his diet, but is exercising 4x/week. After consultation and careful review of medical history, this patient would benefit from Wegovy based off of the following criteria met: Patient is over the age of 18, has a BMI of 42. Additional comorbidities include depression, hyperlipidemia. Patient has trialed other methods of weight loss including improving diet, exercise without success over three months. This medication is prescribed by or in consultation with a board certified obesity and weight management physician (Dr. Kyra Gar or Dr. Yasmany Gar). #Depression with anxiety, patient is on Celexa 10 mg. Patient sees a psychiatrist / psychologist for his mental health. Today's PHQ-9 score is 3 indicating minimal concerns for depression. # Will obtain fasting blood work today #Insomnia, patient is currently on Ambien to help with sleep. Continue current regimen. #Hyperlipidemia, patient has a history of elevated lipid leveles. Will obtain labs before next visit to further assess. Patient was educated and is aware of lifestyle modifications to make to improve levels. Patient has pending lab orders for CBC, CMP, TSH, PSA LIPID and urine testing. Will be completed prior to next visit. Patient following up in 4 weeks for weight loss managment visit or sooner PRN. Patient seen and examined. Comprehensive discussion was done on the following. 1. Nutrition: It is important to follow a healthy diet based on lots of vegetables and legumes and good fat. Avoid processed food and processed carbohydrates. Prepare your own meals. Read labels and avoid high fructose corn syrup, processed chemicals added to increase shelf life and preprepared meals. Avoid fast foods. Eat slowly and plan meals for a week. Try to count calories and be mindful of daily calorie intake. Get into the habit of keeping an eye on your weight by using an appropriate scale. Learn to log exercise and discussed fitness Apps like [employer] which can help keep log off calories taken versus calories burned. Local food should be preferred. Discussed Dirty Dozen Versus Clean Fifteen. Discussed healthy supplements like fish oil, Tumeric, Curcumin, Melatonin, Resveratrol, Probiotics, Vitamin-D, Alpha-Lipoic acid, Vitamin-D and coconut oil. 2. It is important to exercise regularly. Is a good habit to walk at least 30 minutes a day. Gentle weightlifting with standard precautions to protect the back. Finding activity like cycling or hiking and get into the habit of engaging in it. Stretching before and after the exercises important. It is also important to contact me if there are any problems like shortness of breath, chest pain, back pain and joint or muscle pain associated with the exercise. 3. Discussed age appropriate screening guidelines. Colonoscopy needs to start at age 50 with stool for occult blood as appropriate. There is a new test that can test for genetic abnormalities in the stool sample, Cologuard. This would not replace a colonoscopy but could be used as a screening tool for patients who do not want a colonoscopy. We discussed the importance of early detection of colon cancer. 4. Discussed current PSA screening. PSA screening can be done in most patients between age 50 and 65. However early detection of prostate cancer needs to carefully be balanced with complications with treatment. These include incontinence, impotence etc. Each patient should decide if they would like to have this test. 5. Discussed safe driving and no use of smart phone while driving 6. Age-appropriate immunizations were discussed. A tetanus booster is needed every 10 years. Flu vaccine is recommended every year just before the start of the flu season. Shingles vaccine is recommended after age 50 but not all insurances cover it. Pneumonia vaccine is given after age 65 unless there are certain comorbidities for which it is started earlier. 7. Diagnostic labs were discussed. These could include/not limited to CBC CMP and lipids with fasting blood glucose and insulin levels. Vitamin D and hemoglobin A1c testing might be appropriate. All quetsions answered to patients satisfaction. Patient verbalized understanding of diagnosis and treatments explained. To call sooner prior to next visit it any questions/concerns arise. Case discussed with collaborating physician Jennifer Gar who reviewed the assessment and plan. Chart, medications, labs, vital signs reviewed. Dictation was accomplished with the use of [employer] voice recognition software, prone to medical misidentifications and grammatical errors. This is unintentional and the practitioner does try to identify and correct these, but some could still be present. Please do not hesitate to contact practitioner for clarification. 10/11/2023 Depression with anxiety (ICD-10 - F41.8) Heath is a 53-year-old male who presents the office for weight f/u. #Obesity 02/05/23: 309lbs, BMI 44. 04/10/23: 308.7 lbs, BMI: 44.29Patient was unable to find Wegovy that he was prescribed last visit. States that he is interested in Contrave as his mom is on this. I did discuss with him extensively risk of serotonin syndrome with use of Contrave due to its component of Wellbutrin and he is on Celexa. He states that his mom is on Celexa as well as utilizes Contrave. I discussed that I have no problem implementing this medication as long as he is aware of potential side effects with 2 antidepressants. Discussed extensively serotonin syndrome as a possible complication. Can send the medication to the pharmacy and if his insurance does not approve it can send to [facility]. Educated on potential side effects of medication and that he should avoid alcohol. Patient does not drink alcohol. Discussed potential insomnia. Educated on serotonin syndrome with Contrave and to monitor for signs and symptoms as well as potential suicidal ideation. We will follow-up in 4 weeks with SECA scale. 07/17/2023: Weight 309.86, BMI 42.02. He was originally seen in [place] where he was started on wegovy but it was not available at surrounding pharmacies. He was then see at our location where he was started on Contrave. He reports contrave was interferring with Celexa so patient self discontinued. Patient exercises frequently with resistance training and treadmill but has been constantly sick the past couple months so frequency has gone down. He reports his biggest barrier is diet, he knows he can make changes and eat out less. Patient does not have recent labs so we did in office HgbA1c with result of 6.3 indicating pre-diabetes. Based on these results, we will submit for Ozempic. Patient is aware that it may not get covered with prediabetic code. We had a sample in office and I gave that to patient today until we hear about Ozempic coverage. If Ozempic is denied, we will continue semaglutide here and office and submit for Wegovy once we reach a dose of 1mg. Seca was reviewed with patient. 09/12/23: Weight: 289.7 lbs, BMI 42.85. Patient has been getting Semaglutide 0.5 mg in office since he hasn't been able to get the injection at the pharmacy. Will resend Wegovy 1 mg Rx through insurance for approval. Patient recieved Semaglutide 0.5 mg in office today. Tolerating medication dose well with mild constipation but no other ADRs. Patient is still working on improving his diet, but is exercising 4x/week. 10/11/2023: Weight 294, BMI 42.18. Patient graduated an effort, continuing to lose slow, steady weight. Adamantly declined Wegovy 1 mg because he did not lose 5% of his weight, but patient has since lost 5% of his weight. Congratulated on effort, continue to try to exercise with upper body as his right ankle is healing from a recent fracture. Will increase semaglutide 1 mg in the meantime. After consultation and careful review of medical history, this patient would benefit from Wegovy based off of the following criteria met: Patient is over the age of 18, has a BMI of 42. Additional comorbidities include hyperlipidemia. Patient has trialed other methods of weight loss including improving diet, exercise without success over three months. This medication is prescribed by or in consultation with a board certified obesity and weight management physician (Dr. Kyra Gar or Dr. Yasmany Gar). #Depression with anxiety, patient is on Celexa 10 mg. Patient sees a psychiatrist / psychologist for his mental health. Today's PHQ-9 score is 3 indicating minimal concerns for depression. #Insomnia, patient is currently on Ambien to help with sleep. Continue current regimen. #Hyperlipidemia, patient has a history of elevated lipid leveles. Will obtain labs before next visit to further assess. Patient was educated and is aware of lifestyle modifications to make to improve levels. Time spent with patient 30 minutes or greater than 50% of patient occasion and care coronation Follow-up in 4 weeks, sooner as needed All quetsions answered to patients satisfaction. Patient verbalized understanding of diagnosis and treatments explained. To call sooner prior to next visit it any questions/concerns arise. Case discussed with collaborating physician Jennifer Gar who reviewed the assessment and plan. Chart, medications, labs, vital signs reviewed. Dictation was accomplished with the use of [employer] voice recognition software, prone to medical misidentifications and grammatical errors. This is unintentional and the practitioner does try to identify and correct these, but some could still be present. Please do not hesitate to contact practitioner for clarification. 11/20/2023 Numbness of hand (ICD-10 - R20.0) Heath is a 53-year-old male who presents the office for weight f/u. #Obesity 02/05/23: 309lbs, BMI 44. 04/10/23: 308.7 lbs, BMI: 44.29Patient was unable to find Wegovy that he was prescribed last visit. States that he is interested in Contrave as his mom is on this. I did discuss with him extensively risk of serotonin syndrome with use of Contrave due to its component of Wellbutrin and he is on Celexa. He states that his mom is on Celexa as well as utilizes Contrave. I discussed that I have no problem implementing this medication as long as he is aware of potential side effects with 2 antidepressants. Discussed extensively serotonin syndrome as a possible complication. Can send the medication to the pharmacy and if his insurance does not approve it can send to [facility]. Educated on potential side effects of medication and that he should avoid alcohol. Patient does not drink alcohol. Discussed potential insomnia. Educated on serotonin syndrome with Contrave and to monitor for signs and symptoms as well as potential suicidal ideation. We will follow-up in 4 weeks with SECA scale. 07/17/2023: Weight 309.86, BMI 42.02. He was originally seen in [place] where he was started on wegovy but it was not available at surrounding pharmacies. He was then see at our location where he was started on Contrave. He reports contrave was interferring with Celexa so patient self discontinued. Patient exercises frequently with resistance training and treadmill but has been constantly sick the past couple months so frequency has gone down. He reports his biggest barrier is diet, he knows he can make changes and eat out less. Patient does not have recent labs so we did in office HgbA1c with result of 6.3 indicating pre-diabetes. Based on these results, we will submit for Ozempic. Patient is aware that it may not get covered with prediabetic code. We had a sample in office and I gave that to patient today until we hear about Ozempic coverage. If Ozempic is denied, we will continue semaglutide here and office and submit for Wegovy once we reach a dose of 1mg. Seca was reviewed with patient. 09/12/23: Weight: 289.7 lbs, BMI 42.85. Patient has been getting Semaglutide 0.5 mg in office since he hasn't been able to get the injection at the pharmacy. Will resend Wegovy 1 mg Rx through insurance for approval. Patient recieved Semaglutide 0.5 mg in office today. Tolerating medication dose well with mild constipation but no other ADRs. Patient is still working on improving his diet, but is exercising 4x/week. 10/11/2023: Weight 294, BMI 42.18. Patient graduated an effort, continuing to lose slow, steady weight. Adamantly declined Wegovy 1 mg because he did not lose 5% of his weight, but patient has since lost 5% of his weight. Congratulated on effort, continue to try to exercise with upper body as his right ankle is healing from a recent fracture. Will increase semaglutide 1 mg in the meantime. 11/20/2023: Weight 292.3, BMI 41.94. Patient having some difficulty with exercise secondary to Achilles injury, following with orthopedics, getting MRI in the next few weeks. Otherwise, he states he is not making the best nutrition choices as well because he just expresses frustration in regards to the injury setting him back. Taking Wegovy 1 mg, will increase to Wegovy 1.7 but discussed the importance of lifestyle modifications in conjunction with weight loss for fat loss all trying to maintain muscle. Patient understanding. #Depression with anxiety, patient is on Celexa 10 mg. Patient sees a psychiatrist / psychologist for his mental health. Today's PHQ-9 score is 3 indicating minimal concerns for depression. #Insomnia, patient is currently on Ambien to help with sleep. Continue current regimen. #Hyperlipidemia, patient has a history of elevated lipid leveles. Will obtain labs before next visit to further assess. Patient was educated and is aware of lifestyle modifications to make to improve levels. Time spent with patient 30 minutes or greater than 50% of patient occasion and care coronation Follow-up for second shingles vaccine in 8 weeks, and for weight management 4 weeks after that visit. All quetsions answered to patients satisfaction. Patient verbalized understanding of diagnosis and treatments explained. To call sooner prior to next visit it any questions/concerns arise. Case discussed with collaborating physician Jennifer Gar who reviewed the assessment and plan. Chart, medications, labs, vital signs reviewed. Dictation was accomplished with the use of [employer] voice recognition software, prone to medical misidentifications and grammatical errors. This is unintentional and the practitioner does try to identify and correct these, but some could still be present. Please do not hesitate to contact practitioner for clarification. 01/15/2024 Numbness of hand (ICD-10 - R20.0) Heath is a 53-year-old male who presents the office for weight f/u. #Obesity 02/05/23: 309lbs, BMI 44. 04/10/23: 308.7 lbs, BMI: 44.29Patient was unable to find Wegovy that he was prescribed last visit. States that he is interested in Contrave as his mom is on this. I did discuss with him extensively risk of serotonin syndrome with use of Contrave due to its component of Wellbutrin and he is on Celexa. He states that his mom is on Celexa as well as utilizes Contrave. I discussed that I have no problem implementing this medication as long as he is aware of potential side effects with 2 antidepressants. Discussed extensively serotonin syndrome as a possible complication. Can send the medication to the pharmacy and if his insurance does not approve it can send to [facility]. Educated on potential side effects of medication and that he should avoid alcohol. Patient does not drink alcohol. Discussed potential insomnia. Educated on serotonin syndrome with Contrave and to monitor for signs and symptoms as well as potential suicidal ideation. We will follow-up in 4 weeks with SECA scale. 07/17/2023: Weight 309.86, BMI 42.02. He was originally seen in [place] where he was started on wegovy but it was not available at surrounding pharmacies. He was then see at our location where he was started on Contrave. He reports contrave was interferring with Celexa so patient self discontinued. Patient exercises frequently with resistance training and treadmill but has been constantly sick the past couple months so frequency has gone down. He reports his biggest barrier is diet, he knows he can make changes and eat out less. Patient does not have recent labs so we did in office HgbA1c with result of 6.3 indicating pre-diabetes. Based on these results, we will submit for Ozempic. Patient is aware that it may not get covered with prediabetic code. We had a sample in office and I gave that to patient today until we hear about Ozempic coverage. If Ozempic is denied, we will continue semaglutide here and office and submit for Wegovy once we reach a dose of 1mg. Seca was reviewed with patient. 09/12/23: Weight: 289.7 lbs, BMI 42.85. Patient has been getting Semaglutide 0.5 mg in office since he hasn't been able to get the injection at the pharmacy. Will resend Wegovy 1 mg Rx through insurance for approval. Patient recieved Semaglutide 0.5 mg in office today. Tolerating medication dose well with mild constipation but no other ADRs. Patient is still working on improving his diet, but is exercising 4x/week. 10/11/2023: Weight 294, BMI 42.18. Patient graduated an effort, continuing to lose slow, steady weight. Adamantly declined Wegovy 1 mg because he did not lose 5% of his weight, but patient has since lost 5% of his weight. Congratulated on effort, continue to try to exercise with upper body as his right ankle is healing from a recent fracture. Will increase semaglutide 1 mg in the meantime. 11/20/2023: Weight 292.3, BMI 41.94. Patient having some difficulty with exercise secondary to Achilles injury, following with orthopedics, getting MRI in the next few weeks. Otherwise, he states he is not making the best nutrition choices as well because he just expresses frustration in regards to the injury setting him back. Taking Wegovy 1 mg, will increase to Wegovy 1.7 but discussed the importance of lifestyle modifications in conjunction with weight loss for fat loss all trying to maintain muscle. Patient understanding. 01/15/2024: Weight 289, BMI 41.53: Continue with Wegovy 1.7 mg, exercise limited due to Achilles injury, but has clearance after the 16th of this month so is looking forward to getting back into a routine. Discussed lifestyle, continue Wegovy 1.7 mg until lifestyle habit changes continue to improve. # Patient going to obtain fasting blood work prior to next visit #Depression with anxiety, patient is on Celexa 10 mg. Patient sees a psychiatrist / psychologist for his mental health. Today's PHQ-9 score is 3 indicating minimal concerns for depression. #Insomnia, patient is currently on Ambien to help with sleep. Continue current regimen. #Hyperlipidemia, patient has a history of elevated lipid leveles. Patient was educated and is aware of lifestyle modifications to make to improve levels. Time spent with patient 30 minutes or greater than 50% of patient occasion and care coronation Patient to follow-up in 6 weeks, will review labs, obtain second shingles vaccine, and discussed weight management. All quetsions answered to patients satisfaction. Patient verbalized understanding of diagnosis and treatments explained. To call sooner prior to next visit it any questions/concerns arise. Case discussed with collaborating physician Jennifer Gar who reviewed the assessment and plan. Chart, medications, labs, vital signs reviewed. Dictation was accomplished with the use of [employer] voice recognition software, prone to medical misidentifications and grammatical errors. This is unintentional and the practitioner does try to identify and correct these, but some could still be present. Please do not hesitate to contact practitioner for clarification. 02/27/2024 Primary insomnia (ICD-10 - F51.01) Heath is a 53-year-old male who presents the office for weight f/u. #Obesity 02/05/23: 309lbs, BMI 44. 11/07/02: 308.7 lbs, BMI: 44.29Patient was unable to find Wegovy that he was prescribed last visit. States that he is interested in Contrave as his mom is on this. I did discuss with him extensively risk of serotonin syndrome with use of Contrave due to its component of Wellbutrin and he is on Celexa. He states that his mom is on Celexa as well as utilizes Contrave. I discussed that I have no problem implementing this medication as long as he is aware of potential side effects with 2 antidepressants. Discussed extensively serotonin syndrome as a possible complication. Can send the medication to the pharmacy and if his insurance does not approve it can send to [facility]. Educated on potential side effects of medication and that he should avoid alcohol. Patient does not drink alcohol. Discussed potential insomnia. Educated on serotonin syndrome with Contrave and to monitor for signs and symptoms as well as potential suicidal ideation. We will follow-up in 4 weeks with SECA scale. 07/17/2023: Weight 309.86, BMI 42.02. He was originally seen in [place] where he was started on wegovy but it was not available at surrounding pharmacies. He was then see at our location where he was started on Contrave. He reports contrave was interferring with Celexa so patient self discontinued. Patient exercises frequently with resistance training and treadmill but has been constantly sick the past couple months so frequency has gone down. He reports his biggest barrier is diet, he knows he can make changes and eat out less. Patient does not have recent labs so we did in office HgbA1c with result of 6.3 indicating pre-diabetes. Based on these results, we will submit for Ozempic. Patient is aware that it may not get covered with prediabetic code. We had a sample in office and I gave that to patient today until we hear about Ozempic coverage. If Ozempic is denied, we will continue semaglutide here and office and submit for Wegovy once we reach a dose of 1mg. Seca was reviewed with patient. 09/12/23: Weight: 289.7 lbs, BMI 42.85. Patient has been getting Semaglutide 0.5 mg in office since he hasn't been able to get the injection at the pharmacy. Will resend Wegovy 1 mg Rx through insurance for approval. Patient recieved Semaglutide 0.5 mg in office today. Tolerating medication dose well with mild constipation but no other ADRs. Patient is still working on improving his diet, but is exercising 4x/week. 10/11/2023: Weight 294, BMI 42.18. Patient graduated an effort, continuing to lose slow, steady weight. Adamantly declined Wegovy 1 mg because he did not lose 5% of his weight, but patient has since lost 5% of his weight. Congratulated on effort, continue to try to exercise with upper body as his right ankle is healing from a recent fracture. Will increase semaglutide 1 mg in the meantime. 11/20/2023: Weight 292.3, BMI 41.94. Patient having some difficulty with exercise secondary to Achilles injury, following with orthopedics, getting MRI in the next few weeks. Otherwise, he states he is not making the best nutrition choices as well because he just expresses frustration in regards to the injury setting him back. Taking Wegovy 1 mg, will increase to Wegovy 1.7 but discussed the importance of lifestyle modifications in conjunction with weight loss for fat loss all trying to maintain muscle. Patient understanding. 01/15/2024: Weight 289, BMI 41.53: Continue with Wegovy 1.7 mg, exercise limited due to Achilles injury, but has clearance after the 16th of this month so is looking forward to getting back into a routine. Discussed lifestyle, continue Wegovy 1.7 mg until lifestyle habit changes continue to improve. 02/27/2024: Weight 280, BMI 40. Patient congratulated, continuing to lose slow, steady weight. Continue with Wegovy 1.7 mg. Having left knee pain for which is being worked up by [facility] at this time so exercise is limited but working on higher protein and nutrition # Following with [facility] for left knee pain, awaiting MRI # Blood work reviewed from 02/24/2024, CBC, and cholesterol panel all within normal limits. Got blood work through his work, had physical 02/2024. States he does not want to do a physical through us as he gets it done through his work. Had EKG done at that time which was within normal limits. #Depression with anxiety, patient is on Celexa 10 mg. Patient sees a psychiatrist / psychologist for his mental health. Today's PHQ-9 score is 3 indicating minimal concerns for depression. #Insomnia, patient is currently on Ambien to help with sleep. Continue current regimen. Time spent with patient 30 minutes or greater than 50% of patient occasion and care coronation Patient to follow-up in 6 weeks, will review labs, obtain second shingles vaccine, and discussed weight management. All quetsions answered to patients satisfaction. Patient verbalized understanding of diagnosis and treatments explained. To call sooner prior to next visit it any questions/concerns arise. Case discussed with collaborating physician Jennifer Gar who reviewed the assessment and plan. Chart, medications, labs, vital signs reviewed. Dictation was accomplished with the use of [employer] voice recognition software, prone to medical misidentifications and grammatical errors. This is unintentional and the practitioner does try to identify and correct these, but some could still be present. Please do not hesitate to contact practitioner for clarification. 02/27/2024 Hyperlipidemia, unspecified hyperlipidemia type (ICD-10 - E78.5) Heath is a 53-year-old male who presents the office for weight f/u. #Obesity 02/05/23: 309lbs, BMI 44. 04/10/23: 308.7 lbs, BMI: 44.29Patient was unable to find Wegovy that he was prescribed last visit. States that he is interested in Contrave as his mom is on this. I did discuss with him extensively risk of serotonin syndrome with use of Contrave due to its component of Wellbutrin and he is on Celexa. He states that his mom is on Celexa as well as utilizes Contrave. I discussed that I have no problem implementing this medication as long as he is aware of potential side effects with 2 antidepressants. Discussed extensively serotonin syndrome as a possible complication. Can send the medication to the pharmacy and if his insurance does not approve it can send to [facility]. Educated on potential side effects of medication and that he should avoid alcohol. Patient does not drink alcohol. Discussed potential insomnia. Educated on serotonin syndrome with Contrave and to monitor for signs and symptoms as well as potential suicidal ideation. We will follow-up in 4 weeks with SECA scale. 07/17/2023: Weight 309.86, BMI 42.02. He was originally seen in [place] where he was started on wegovy but it was not available at surrounding pharmacies. He was then see at our location where he was started on Contrave. He reports contrave was interferring with Celexa so patient self discontinued. Patient exercises frequently with resistance training and treadmill but has been constantly sick the past couple months so frequency has gone down. He reports his biggest barrier is diet, he knows he can make changes and eat out less. Patient does not have recent labs so we did in office HgbA1c with result of 6.3 indicating pre-diabetes. Based on these results, we will submit for Ozempic. Patient is aware that it may not get covered with prediabetic code. We had a sample in office and I gave that to patient today until we hear about Ozempic coverage. If Ozempic is denied, we will continue semaglutide here and office and submit for Wegovy once we reach a dose of 1mg. Seca was reviewed with patient. 09/12/23: Weight: 289.7 lbs, BMI 42.85. Patient has been getting Semaglutide 0.5 mg in office since he hasn't been able to get the injection at the pharmacy. Will resend Wegovy 1 mg Rx through insurance for approval. Patient recieved Semaglutide 0.5 mg in office today. Tolerating medication dose well with mild constipation but no other ADRs. Patient is still working on improving his diet, but is exercising 4x/week. 10/11/2023: Weight 294, BMI 42.18. Patient graduated an effort, continuing to lose slow, steady weight. Adamantly declined Wegovy 1 mg because he did not lose 5% of his weight, but patient has since lost 5% of his weight. Congratulated on effort, continue to try to exercise with upper body as his right ankle is healing from a recent fracture. Will increase semaglutide 1 mg in the meantime. 11/20/2023: Weight 292.3, BMI 41.94. Patient having some difficulty with exercise secondary to Achilles injury, following with orthopedics, getting MRI in the next few weeks. Otherwise, he states he is not making the best nutrition choices as well because he just expresses frustration in regards to the injury setting him back. Taking Wegovy 1 mg, will increase to Wegovy 1.7 but discussed the importance of lifestyle modifications in conjunction with weight loss for fat loss all trying to maintain muscle. Patient understanding. 01/15/2024: Weight 289, BMI 41.53: Continue with Wegovy 1.7 mg, exercise limited due to Achilles injury, but has clearance after the 16th of this month so is looking forward to getting back into a routine. Discussed lifestyle, continue Wegovy 1.7 mg until lifestyle habit changes continue to improve. 02/27/2024: Weight 280, BMI 40. Patient congratulated, continuing to lose slow, steady weight. Continue with Wegovy 1.7 mg. Having left knee pain for which is being worked up by [facility] at this time so exercise is limited but working on higher protein and nutrition # Following with [facility] for left knee pain, awaiting MRI # Blood work reviewed from 02/24/2024, CBC, and cholesterol panel all within normal limits. Got blood work through his work, had physical 02/2024. States he does not want to do a physical through us as he gets it done through his work. Had EKG done at that time which was within normal limits. #Depression with anxiety, patient is on Celexa 10 mg. Patient sees a psychiatrist / psychologist for his mental health. Today's PHQ-9 score is 3 indicating minimal concerns for depression. #Insomnia, patient is currently on Ambien to help with sleep. Continue current regimen. Time spent with patient 30 minutes or greater than 50% of patient occasion and care coronation Patient to follow-up in 6 weeks, will review labs, obtain second shingles vaccine, and discussed weight management. All quetsions answered to patients satisfaction. Patient verbalized understanding of diagnosis and treatments explained. To call sooner prior to next visit it any questions/concerns arise. Case discussed with collaborating physician Jennifer Gar who reviewed the assessment and plan. Chart, medications, labs, vital signs reviewed. Dictation was accomplished with the use of [employer] voice recognition software, prone to medical misidentifications and grammatical errors. This is unintentional and the practitioner does try to identify and correct these, but some could still be present. Please do not hesitate to contact practitioner for clarification. 11/20/2023 Depression with anxiety (ICD-10 - F41.8) Heath is a 53-year-old male who presents the office for weight f/u. #Obesity 02/05/23: 309lbs, BMI 44. /07/02: 308.7 lbs, BMI: 44.29Patient was unable to find Wegovy that he was prescribed last visit. States that he is interested in Contrave as his mom is on this. I did discuss with him extensively risk of serotonin syndrome with use of Contrave due to its component of Wellbutrin and he is on Celexa. He states that his mom is on Celexa as well as utilizes Contrave. I discussed that I have no problem implementing this medication as long as he is aware of potential side effects with 2 antidepressants. Discussed extensively serotonin syndrome as a possible complication. Can send the medication to the pharmacy and if his insurance does not approve it can send to [facility]. Educated on potential side effects of medication and that he should avoid alcohol. Patient does not drink alcohol. Discussed potential insomnia. Educated on serotonin syndrome with Contrave and to monitor for signs and symptoms as well as potential suicidal ideation. We will follow-up in 4 weeks with SECA scale. 07/17/2023: Weight 309.86, BMI 42.02. He was originally seen in [place] where he was started on wegovy but it was not available at surrounding pharmacies. He was then see at our location where he was started on Contrave. He reports contrave was interferring with Celexa so patient self discontinued. Patient exercises frequently with resistance training and treadmill but has been constantly sick the past couple months so frequency has gone down. He reports his biggest barrier is diet, he knows he can make changes and eat out less. Patient does not have recent labs so we did in office HgbA1c with result of 6.3 indicating pre-diabetes. Based on these results, we will submit for Ozempic. Patient is aware that it may not get covered with prediabetic code. We had a sample in office and I gave that to patient today until we hear about Ozempic coverage. If Ozempic is denied, we will continue semaglutide here and office and submit for Wegovy once we reach a dose of 1mg. Seca was reviewed with patient. 09/12/23: Weight: 289.7 lbs, BMI 42.85. Patient has been getting Semaglutide 0.5 mg in office since he hasn't been able to get the injection at the pharmacy. Will resend Wegovy 1 mg Rx through insurance for approval. Patient recieved Semaglutide 0.5 mg in office today. Tolerating medication dose well with mild constipation but no other ADRs. Patient is still working on improving his diet, but is exercising 4x/week. 10/11/2023: Weight 294, BMI 42.18. Patient graduated an effort, continuing to lose slow, steady weight. Adamantly declined Wegovy 1 mg because he did not lose 5% of his weight, but patient has since lost 5% of his weight. Congratulated on effort, continue to try to exercise with upper body as his right ankle is healing from a recent fracture. Will increase semaglutide 1 mg in the meantime. 11/20/2023: Weight 292.3, BMI 41.94. Patient having some difficulty with exercise secondary to Achilles injury, following with orthopedics, getting MRI in the next few weeks. Otherwise, he states he is not making the best nutrition choices as well because he just expresses frustration in regards to the injury setting him back. Taking Wegovy 1 mg, will increase to Wegovy 1.7 but discussed the importance of lifestyle modifications in conjunction with weight loss for fat loss all trying to maintain muscle. Patient understanding. #Depression with anxiety, patient is on Celexa 10 mg. Patient sees a psychiatrist / psychologist for his mental health. Today's PHQ-9 score is 3 indicating minimal concerns for depression. #Insomnia, patient is currently on Ambien to help with sleep. Continue current regimen. #Hyperlipidemia, patient has a history of elevated lipid leveles. Will obtain labs before next visit to further assess. Patient was educated and is aware of lifestyle modifications to make to improve levels. Time spent with patient 30 minutes or greater than 50% of patient occasion and care coronation Follow-up for second shingles vaccine in 8 weeks, and for weight management 4 weeks after that visit. All quetsions answered to patients satisfaction. Patient verbalized understanding of diagnosis and treatments explained. To call sooner prior to next visit it any questions/concerns arise. Case discussed with collaborating physician Jennifer Gar who reviewed the assessment and plan. Chart, medications, labs, vital signs reviewed. Dictation was accomplished with the use of [employer] voice recognition software, prone to medical misidentifications and grammatical errors. This is unintentional and the practitioner does try to identify and correct these, but some could still be present. Please do not hesitate to contact practitioner for clarification. 01/15/2024 Depression with anxiety (ICD-10 - F41.8) Heath is a 53-year-old male who presents the office for weight f/u. #Obesity 02/05/23: 309lbs, BMI 44. 11/07/02: 308.7 lbs, BMI: 44.29Patient was unable to find Wegovy that he was prescribed last visit. States that he is interested in Contrave as his mom is on this. I did discuss with him extensively risk of serotonin syndrome with use of Contrave due to its component of Wellbutrin and he is on Celexa. He states that his mom is on Celexa as well as utilizes Contrave. I discussed that I have no problem implementing this medication as long as he is aware of potential side effects with 2 antidepressants. Discussed extensively serotonin syndrome as a possible complication. Can send the medication to the pharmacy and if his insurance does not approve it can send to [facility]. Educated on potential side effects of medication and that he should avoid alcohol. Patient does not drink alcohol. Discussed potential insomnia. Educated on serotonin syndrome with Contrave and to monitor for signs and symptoms as well as potential suicidal ideation. We will follow-up in 4 weeks with SECA scale. 07/17/2023: Weight 309.86, BMI 42.02. He was originally seen in [place] where he was started on wegovy but it was not available at surrounding pharmacies. He was then see at our location where he was started on Contrave. He reports contrave was interferring with Celexa so patient self discontinued. Patient exercises frequently with resistance training and treadmill but has been constantly sick the past couple months so frequency has gone down. He reports his biggest barrier is diet, he knows he can make changes and eat out less. Patient does not have recent labs so we did in office HgbA1c with result of 6.3 indicating pre-diabetes. Based on these results, we will submit for Ozempic. Patient is aware that it may not get covered with prediabetic code. We had a sample in office and I gave that to patient today until we hear about Ozempic coverage. If Ozempic is denied, we will continue semaglutide here and office and submit for Wegovy once we reach a dose of 1mg. Seca was reviewed with patient. 09/12/23: Weight: 289.7 lbs, BMI 42.85. Patient has been getting Semaglutide 0.5 mg in office since he hasn't been able to get the injection at the pharmacy. Will resend Wegovy 1 mg Rx through insurance for approval. Patient recieved Semaglutide 0.5 mg in office today. Tolerating medication dose well with mild constipation but no other ADRs. Patient is still working on improving his diet, but is exercising 4x/week. 10/11/2023: Weight 294, BMI 42.18. Patient graduated an effort, continuing to lose slow, steady weight. Adamantly declined Wegovy 1 mg because he did not lose 5% of his weight, but patient has since lost 5% of his weight. Congratulated on effort, continue to try to exercise with upper body as his right ankle is healing from a recent fracture. Will increase semaglutide 1 mg in the meantime. 11/20/2023: Weight 292.3, BMI 41.94. Patient having some difficulty with exercise secondary to Achilles injury, following with orthopedics, getting MRI in the next few weeks. Otherwise, he states he is not making the best nutrition choices as well because he just expresses frustration in regards to the injury setting him back. Taking Wegovy 1 mg, will increase to Wegovy 1.7 but discussed the importance of lifestyle modifications in conjunction with weight loss for fat loss all trying to maintain muscle. Patient understanding. 01/15/2024: Weight 289, BMI 41.53: Continue with Wegovy 1.7 mg, exercise limited due to Achilles injury, but has clearance after the of this month so is looking forward to getting back into a routine. Discussed lifestyle, continue Wegovy 1.7 mg until lifestyle habit changes continue to improve. # Patient going to obtain fasting blood work prior to next visit #Depression with anxiety, patient is on Celexa 10 mg. Patient sees a psychiatrist / psychologist for his mental health. Today's PHQ-9 score is 3 indicating minimal concerns for depression. #Insomnia, patient is currently on Ambien to help with sleep. Continue current regimen. #Hyperlipidemia, patient has a history of elevated lipid leveles. Patient was educated and is aware of lifestyle modifications to make to improve levels. Time spent with patient 30 minutes or greater than 50% of patient occasion and care coronation Patient to follow-up in 6 weeks, will review labs, obtain second shingles vaccine, and discussed weight management. All quetsions answered to patients satisfaction. Patient verbalized understanding of diagnosis and treatments explained. To call sooner prior to next visit it any questions/concerns arise. Case discussed with collaborating physician Jennifer Gar who reviewed the assessment and plan. Chart, medications, labs, vital signs reviewed. Dictation was accomplished with the use of [employer] voice recognition software, prone to medical misidentifications and grammatical errors. This is unintentional and the practitioner does try to identify and correct these, but some could still be present. Please do not hesitate to contact practitioner for clarification. 09/12/2023 Depression with anxiety (ICD-10 - F41.8) Heath is a 53-year-old male who presents the office for complete physical exam # Patient up-to-date on all routine screening and vaccines, will obtain shingles #1 today, get second shingles dose in the next 4 to 6 months. Educated on proper use, side effects. #Numbness / Tingling of Right Hand: patient states he has numbness and tingling of the right 4th and 5th digits of the hand that has been present 70% of the time in the last four weeks. 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 Denies muscle weakness or loss of full ROM. PE was WNL, neurovasularly intact, and negative Tinnel and De Quervian tests. Patient educated that this may be an side effect of the Semaglutide injection and we can stop injection if patient would like. Patient isn't too concerned at this point and would like to continue with medication. Education given to patient that he should contact us or visit the ER if numbness / tingling spreads up arm, becomes worse, or experiences muscle weakness / loss of control of fingers. #Obesity 02/05/23: 309lbs, BMI 44. /07/02: 308.7 lbs, BMI: 44.29Patient was unable to find Wegovy that he was prescribed last visit. States that he is interested in Contrave as his mom is on this. I did discuss with him extensively risk of serotonin syndrome with use of Contrave due to its component of Wellbutrin and he is on Celexa. He states that his mom is on Celexa as well as utilizes Contrave. I discussed that I have no problem implementing this medication as long as he is aware of potential side effects with 2 antidepressants. Discussed extensively serotonin syndrome as a possible complication. Can send the medication to the pharmacy and if his insurance does not approve it can send to [facility]. Educated on potential side effects of medication and that he should avoid alcohol. Patient does not drink alcohol. Discussed potential insomnia. Educated on serotonin syndrome with Contrave and to monitor for signs and symptoms as well as potential suicidal ideation. We will follow-up in 4 weeks with SECA scale. 07/17/2023: Weight 309.86, BMI 42.02. He was originally seen in [place] where he was started on wegovy but it was not available at surrounding pharmacies. He was then see at our location where he was started on Contrave. He reports contrave was interferring with Celexa so patient self discontinued. Patient exercises frequently with resistance training and treadmill but has been constantly sick the past couple months so frequency has gone down. He reports his biggest barrier is diet, he knows he can make changes and eat out less. Patient does not have recent labs so we did in office HgbA1c with result of 6.3 indicating pre-diabetes. Based on these results, we will submit for Ozempic. Patient is aware that it may not get covered with prediabetic code. We had a sample in office and I gave that to patient today until we hear about Ozempic coverage. If Ozempic is denied, we will continue semaglutide here and office and submit for Wegovy once we reach a dose of 1mg. Seca was reviewed with patient. 09/12/23: Weight: 289.7 lbs, BMI 42.85. Patient has been getting Semaglutide 0.5 mg in office since he hasn't been able to get the injection at the pharmacy. Will resend Wegovy 1 mg Rx through insurance for approval. Patient recieved Semaglutide 0.5 mg in office today. Tolerating medication dose well with mild constipation but no other ADRs. Patient is still working on improving his diet, but is exercising 4x/week. After consultation and careful review of medical history, this patient would benefit from Wegovy based off of the following criteria met: Patient is over the age of 18, has a BMI of 42. Additional comorbidities include depression, hyperlipidemia. Patient has trialed other methods of weight loss including improving diet, exercise without success over three months. This medication is prescribed by or in consultation with a board certified obesity and weight management physician (Dr. Kyra Gar or Dr. Yasmany Gar). #Depression with anxiety, patient is on Celexa 10 mg. Patient sees a psychiatrist / psychologist for his mental health. Today's PHQ-9 score is 3 indicating minimal concerns for depression. # Will obtain fasting blood work today #Insomnia, patient is currently on Ambien to help with sleep. Continue current regimen. #Hyperlipidemia, patient has a history of elevated lipid leveles. Will obtain labs before next visit to further assess. Patient was educated and is aware of lifestyle modifications to make to improve levels. Patient has pending lab orders for CBC, CMP, TSH, PSA LIPID and urine testing. Will be completed prior to next visit. Patient following up in 4 weeks for weight loss managment visit or sooner PRN. Patient seen and examined. Comprehensive discussion was done on the following. 1. Nutrition: It is important to follow a healthy diet based on lots of vegetables and legumes and good fat. Avoid processed food and processed carbohydrates. Prepare your own meals. Read labels and avoid high fructose corn syrup, processed chemicals added to increase shelf life and preprepared meals. Avoid fast foods. Eat slowly and plan meals for a week. Try to count calories and be mindful of daily calorie intake. Get into the habit of keeping an eye on your weight by using an appropriate scale. Learn to log exercise and discussed fitness Apps like myfitnesspal/loseit which can help keep log off calories taken versus calories burned. Local food should be preferred. Discussed Dirty Dozen Versus Clean Fifteen. Discussed healthy supplements like fish oil, Tumeric, Curcumin, Melatonin, Resveratrol, Probiotics, Vitamin-D, Alpha-Lipoic acid, Vitamin-D and coconut oil. 2. It is important to exercise regularly. Is a good habit to walk at least 30 minutes a day. Gentle weightlifting with standard precautions to protect the back. Finding activity like cycling or hiking and get into the habit of engaging in it. Stretching before and after the exercises important. It is also important to contact me if there are any problems like shortness of breath, chest pain, back pain and joint or muscle pain associated with the exercise. 3. Discussed age appropriate screening guidelines. Colonoscopy needs to start at age 50 with stool for occult blood as appropriate. There is a new test that can test for genetic abnormalities in the stool sample, Cologuard. This would not replace a colonoscopy but could be used as a screening tool for patients who do not want a colonoscopy. We discussed the importance of early detection of colon cancer. 4. Discussed current PSA screening. PSA screening can be done in most patients between age 50 and 65. However early detection of prostate cancer needs to carefully be balanced with complications with treatment. These include incontinence, impotence etc. Each patient should decide if they would like to have this test. 5. Discussed safe driving and no use of smart phone while driving 6. Age-appropriate immunizations were discussed. A tetanus booster is needed every 10 years. Flu vaccine is recommended every year just before the start of the flu season. Shingles vaccine is recommended after age 50 but not all insurances cover it. Pneumonia vaccine is given after age 65 unless there are certain comorbidities for which it is started earlier. 7. Diagnostic labs were discussed. These could include/not limited to CBC CMP and lipids with fasting blood glucose and insulin levels. Vitamin D and hemoglobin A1c testing might be appropriate. All quetsions answered to patients satisfaction. Patient verbalized understanding of diagnosis and treatments explained. To call sooner prior to next visit it any questions/concerns arise. Case discussed with collaborating physician Jennifer Gar who reviewed the assessment and plan. Chart, medications, labs, vital signs reviewed. Dictation was accomplished with the use of [employer] voice recognition software, prone to medical misidentifications and grammatical errors. This is unintentional and the practitioner does try to identify and correct these, but some could still be present. Please do not hesitate to contact practitioner for clarification. 10/11/2023 Primary insomnia (ICD-10 - F51.01) Heath is a 53-year-old male who presents the office for weight f/u. #Obesity 02/05/23: 309lbs, BMI 44. /07/02: 308.7 lbs, BMI: 44.29Patient was unable to find Wegovy that he was prescribed last visit. States that he is interested in Contrave as his mom is on this. I did discuss with him extensively risk of serotonin syndrome with use of Contrave due to its component of Wellbutrin and he is on Celexa. He states that his mom is on Celexa as well as utilizes Contrave. I discussed that I have no problem implementing this medication as long as he is aware of potential side effects with 2 antidepressants. Discussed extensively serotonin syndrome as a possible complication. Can send the medication to the pharmacy and if his insurance does not approve it can send to [facility]. Educated on potential side effects of medication and that he should avoid alcohol. Patient does not drink alcohol. Discussed potential insomnia. Educated on serotonin syndrome with Contrave and to monitor for signs and symptoms as well as potential suicidal ideation. We will follow-up in 4 weeks with SECA scale. 07/17/2023: Weight 309.86, BMI 42.02. He was originally seen in [place] where he was started on wegovy but it was not available at surrounding pharmacies. He was then see at our location where he was started on Contrave. He reports contrave was interferring with Celexa so patient self discontinued. Patient exercises frequently with resistance training and treadmill but has been constantly sick the past couple months so frequency has gone down. He reports his biggest barrier is diet, he knows he can make changes and eat out less. Patient does not have recent labs so we did in office HgbA1c with result of 6.3 indicating pre-diabetes. Based on these results, we will submit for Ozempic. Patient is aware that it may not get covered with prediabetic code. We had a sample in office and I gave that to patient today until we hear about Ozempic coverage. If Ozempic is denied, we will continue semaglutide here and office and submit for Wegovy once we reach a dose of 1mg. Seca was reviewed with patient. 09/12/23: Weight: 289.7 lbs, BMI 42.85. Patient has been getting Semaglutide 0.5 mg in office since he hasn't been able to get the injection at the pharmacy. Will resend Wegovy 1 mg Rx through insurance for approval. Patient recieved Semaglutide 0.5 mg in office today. Tolerating medication dose well with mild constipation but no other ADRs. Patient is still working on improving his diet, but is exercising 4x/week. 10/11/2023: Weight 294, BMI 42.18. Patient graduated an effort, continuing to lose slow, steady weight. Adamantly declined Wegovy 1 mg because he did not lose 5% of his weight, but patient has since lost 5% of his weight. Congratulated on effort, continue to try to exercise with upper body as his right ankle is healing from a recent fracture. Will increase semaglutide 1 mg in the meantime. After consultation and careful review of medical history, this patient would benefit from Wegovy based off of the following criteria met: Patient is over the age of 18, has a BMI of 42. Additional comorbidities include hyperlipidemia. Patient has trialed other methods of weight loss including improving diet, exercise without success over three months. This medication is prescribed by or in consultation with a board certified obesity and weight management physician (Dr. Kyra Gar or Dr. Yasmany Gar). #Depression with anxiety, patient is on Celexa 10 mg. Patient sees a psychiatrist / psychologist for his mental health. Today's PHQ-9 score is 3 indicating minimal concerns for depression. #Insomnia, patient is currently on Ambien to help with sleep. Continue current regimen. #Hyperlipidemia, patient has a history of elevated lipid leveles. Will obtain labs before next visit to further assess. Patient was educated and is aware of lifestyle modifications to make to improve levels. Time spent with patient 30 minutes or greater than 50% of patient occasion and care coronation Follow-up in 4 weeks, sooner as needed All quetsions answered to patients satisfaction. Patient verbalized understanding of diagnosis and treatments explained. To call sooner prior to next visit it any questions/concerns arise. Case discussed with collaborating physician Jenniefr Gar who reviewed the assessment and plan. Chart, medications, labs, vital signs reviewed. Dictation was accomplished with the use of [employer] voice recognition software, prone to medical misidentifications and grammatical errors. This is unintentional and the practitioner does try to identify and correct these, but some could still be present. Please do not hesitate to contact practitioner for clarification. 07/17/2023 Hyperlipidemia, unspecified hyperlipidemia type (ICD-10 - E78.5) #obesity 02/05/23: 309lbs, BMI 44. 11/07/02: 308.7 lbs, BMI: 44.29Patient was unable to find Wegovy that he was prescribed last visit. States that he is interested in Contrave as his mom is on this. I did discuss with him extensively risk of serotonin syndrome with use of Contrave due to its component of Wellbutrin and he is on Celexa. He states that his mom is on Celexa as well as utilizes Contrave. I discussed that I have no problem implementing this medication as long as he is aware of potential side effects with 2 antidepressants. Discussed extensively serotonin syndrome as a possible complication. Can send the medication to the pharmacy and if his insurance does not approve it can send to [facility]. Educated on potential side effects of medication and that he should avoid alcohol. Patient does not drink alcohol. Discussed potential insomnia. Educated on serotonin syndrome with Contrave and to monitor for signs and symptoms as well as potential suicidal ideation. We will follow-up in 4 weeks with SECA scale. #07/17/2023: Weight 309.86, BMI 42.02. He was originally seen in [place] where he was started on wegovy but it was not available at surrounding pharmacies. He was then see at our location where he was started on Contrave. He reports contrave was interferring with Celexa so patient self discontinued. Patient exercises frequently with resistance training and treadmill but has been constantly sick the past couple months so frequency has gone down. He reports his biggest barrier is diet, he knows he can make changes and eat out less. Patient does not have recent labs so we did in office HgbA1c with result of 6.3 indicating pre-diabetes. Based on these results, we will submit for Ozempic. Patient is aware that it may not get covered with prediabetic code. We had a sample in office and I gave that to patient today until we hear about Ozempic coverage. If Ozempic is denied, we will continue semaglutide here and office and submit for Wegovy once we reach a dose of 1mg. Seca was reviewed with patient. #Depression with anxiety, patient is on Celexa 10 mg. Educated on serotonin syndrome with Contrave and to monitor for signs and symptoms as well as potential suicidal ideation. #Insomnia, patient is currently on zolpidem for help with sleep. Educated on continued compliance with this medication. #Hyperlipidemia, patient had elevated lipid levels educated on dietary lifestyle changes. Patient following up for complete physical in 6 to 8 weeks, sooner as needed. Working on Ozempic coverage in the meantime Time spent with patient 30 minutes with greater than 50% of patient occasion and care coordination All quetsions answered to patients satisfaction. Patient verbalized understanding of diagnosis and treatments explained. To call sooner prior to next visit it any questions/concerns arise. Case discussed with collaborating physician Jennifer Gar who reviewed the assessment and plan. Chart, medications, labs, vital signs reviewed. Dictation was accomplished with the use of [employer] voice recognition software, prone to medical misidentifications and grammatical errors. This is unintentional and the practitioner does try to identify and correct these, but some could still be present. Please do not hesitate to contact practitioner for clarification. 07/17/2023 Vitamin D deficiency, unspecified (ICD-10 - E55.9) #obesity 02/05/23: 309lbs, BMI 44. 04/10/23: 308.7 lbs, BMI: 44.29Patient was unable to find Wegovy that he was prescribed last visit. States that he is interested in Contrave as his mom is on this. I did discuss with him extensively risk of serotonin syndrome with use of Contrave due to its component of Wellbutrin and he is on Celexa. He states that his mom is on Celexa as well as utilizes Contrave. I discussed that I have no problem implementing this medication as long as he is aware of potential side effects with 2 antidepressants. Discussed extensively serotonin syndrome as a possible complication. Can send the medication to the pharmacy and if his insurance does not approve it can send to [facility]. Educated on potential side effects of medication and that he should avoid alcohol. Patient does not drink alcohol. Discussed potential insomnia. Educated on serotonin syndrome with Contrave and to monitor for signs and symptoms as well as potential suicidal ideation. We will follow-up in 4 weeks with SECA scale. #07/17/2023: Weight 309.86, BMI 42.02. He was originally seen in [place] where he was started on wegovy but it was not available at surrounding pharmacies. He was then see at our location where he was started on Contrave. He reports contrave was interferring with Celexa so patient self discontinued. Patient exercises frequently with resistance training and treadmill but has been constantly sick the past couple months so frequency has gone down. He reports his biggest barrier is diet, he knows he can make changes and eat out less. Patient does not have recent labs so we did in office HgbA1c with result of 6.3 indicating pre-diabetes. Based on these results, we will submit for Ozempic. Patient is aware that it may not get covered with prediabetic code. We had a sample in office and I gave that to patient today until we hear about Ozempic coverage. If Ozempic is denied, we will continue semaglutide here and office and submit for Wegovy once we reach a dose of 1mg. Seca was reviewed with patient. #Depression with anxiety, patient is on Celexa 10 mg. Educated on serotonin syndrome with Contrave and to monitor for signs and symptoms as well as potential suicidal ideation. #Insomnia, patient is currently on zolpidem for help with sleep. Educated on continued compliance with this medication. #Hyperlipidemia, patient had elevated lipid levels educated on dietary lifestyle changes. Patient following up for complete physical in 6 to 8 weeks, sooner as needed. Working on Ozempic coverage in the meantime Time spent with patient 30 minutes with greater than 50% of patient occasion and care coordination All quetsions answered to patients satisfaction. Patient verbalized understanding of diagnosis and treatments explained. To call sooner prior to next visit it any questions/concerns arise. Case discussed with collaborating physician Jennifer Gar who reviewed the assessment and plan. Chart, medications, labs, vital signs reviewed. Dictation was accomplished with the use of [employer] voice recognition software, prone to medical misidentifications and grammatical errors. This is unintentional and the practitioner does try to identify and correct these, but some could still be present. Please do not hesitate to contact practitioner for clarification. 09/12/2023 Primary insomnia (ICD-10 - F51.01) Heath is a 53-year-old male who presents the office for complete physical exam # Patient up-to-date on all routine screening and vaccines, will obtain shingles #1 today, get second shingles dose in the next 4 to 6 months. Educated on proper use, side effects. #Numbness / Tingling of Right Hand: patient states he has numbness and tingling of the right 4th and 5th digits of the hand that has been present 70% of the time in the last four weeks. 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 Denies muscle weakness or loss of full ROM. PE was WNL, neurovasularly intact, and negative Tinnel and De Quervian tests. Patient educated that this may be an side effect of the Semaglutide injection and we can stop injection if patient would like. Patient isn't too concerned at this point and would like to continue with medication. Education given to patient that he should contact us or visit the ER if numbness / tingling spreads up arm, becomes worse, or experiences muscle weakness / loss of control of fingers. #Obesity 02/05/23: 309lbs, BMI 44. 04/10/23: 308.7 lbs, BMI: 44.29Patient was unable to find Wegovy that he was prescribed last visit. States that he is interested in Contrave as his mom is on this. I did discuss with him extensively risk of serotonin syndrome with use of Contrave due to its component of Wellbutrin and he is on Celexa. He states that his mom is on Celexa as well as utilizes Contrave. I discussed that I have no problem implementing this medication as long as he is aware of potential side effects with 2 antidepressants. Discussed extensively serotonin syndrome as a possible complication. Can send the medication to the pharmacy and if his insurance does not approve it can send to [facility]. Educated on potential side effects of medication and that he should avoid alcohol. Patient does not drink alcohol. Discussed potential insomnia. Educated on serotonin syndrome with Contrave and to monitor for signs and symptoms as well as potential suicidal ideation. We will follow-up in 4 weeks with SECA scale. 07/17/2023: Weight 309.86, BMI 42.02. He was originally seen in [place] where he was started on wegovy but it was not available at surrounding pharmacies. He was then see at our location where he was started on Contrave. He reports contrave was interferring with Celexa so patient self discontinued. Patient exercises frequently with resistance training and treadmill but has been constantly sick the past couple months so frequency has gone down. He reports his biggest barrier is diet, he knows he can make changes and eat out less. Patient does not have recent labs so we did in office HgbA1c with result of 6.3 indicating pre-diabetes. Based on these results, we will submit for Ozempic. Patient is aware that it may not get covered with prediabetic code. We had a sample in office and I gave that to patient today until we hear about Ozempic coverage. If Ozempic is denied, we will continue semaglutide here and office and submit for Wegovy once we reach a dose of 1mg. Seca was reviewed with patient. 09/12/23: Weight: 289.7 lbs, BMI 42.85. Patient has been getting Semaglutide 0.5 mg in office since he hasn't been able to get the injection at the pharmacy. Will resend Wegovy 1 mg Rx through insurance for approval. Patient recieved Semaglutide 0.5 mg in office today. Tolerating medication dose well with mild constipation but no other ADRs. Patient is still working on improving his diet, but is exercising 4x/week. After consultation and careful review of medical history, this patient would benefit from Wegovy based off of the following criteria met: Patient is over the age of 18, has a BMI of 42. Additional comorbidities include depression, hyperlipidemia. Patient has trialed other methods of weight loss including improving diet, exercise without success over three months. This medication is prescribed by or in consultation with a board certified obesity and weight management physician (Dr. Kyra Gar or Dr. Yasmany Gar). #Depression with anxiety, patient is on Celexa 10 mg. Patient sees a psychiatrist / psychologist for his mental health. Today's PHQ-9 score is 3 indicating minimal concerns for depression. # Will obtain fasting blood work today #Insomnia, patient is currently on Ambien to help with sleep. Continue current regimen. #Hyperlipidemia, patient has a history of elevated lipid leveles. Will obtain labs before next visit to further assess. Patient was educated and is aware of lifestyle modifications to make to improve levels. Patient has pending lab orders for CBC, CMP, TSH, PSA LIPID and urine testing. Will be completed prior to next visit. Patient following up in 4 weeks for weight loss managment visit or sooner PRN. Patient seen and examined. Comprehensive discussion was done on the following. 1. Nutrition: It is important to follow a healthy diet based on lots of vegetables and legumes and good fat. Avoid processed food and processed carbohydrates. Prepare your own meals. Read labels and avoid high fructose corn syrup, processed chemicals added to increase shelf life and preprepared meals. Avoid fast foods. Eat slowly and plan meals for a week. Try to count calories and be mindful of daily calorie intake. Get into the habit of keeping an eye on your weight by using an appropriate scale. Learn to log exercise and discussed fitness Apps like [employer] which can help keep log off calories taken versus calories burned. Local food should be preferred. Discussed Dirty Dozen Versus Clean Fifteen. Discussed healthy supplements like fish oil, Tumeric, Curcumin, Melatonin, Resveratrol, Probiotics, Vitamin-D, Alpha-Lipoic acid, Vitamin-D and coconut oil. 2. It is important to exercise regularly. Is a good habit to walk at least 30 minutes a day. Gentle weightlifting with standard precautions to protect the back. Finding activity like cycling or hiking and get into the habit of engaging in it. Stretching before and after the exercises important. It is also important to contact me if there are any problems like shortness of breath, chest pain, back pain and joint or muscle pain associated with the exercise. 3. Discussed age appropriate screening guidelines. Colonoscopy needs to start at age 50 with stool for occult blood as appropriate. There is a new test that can test for genetic abnormalities in the stool sample, Cologuard. This would not replace a colonoscopy but could be used as a screening tool for patients who do not want a colonoscopy. We discussed the importance of early detection of colon cancer. 4. Discussed current PSA screening. PSA screening can be done in most patients between age 50 and 65. However early detection of prostate cancer needs to carefully be balanced with complications with treatment. These include incontinence, impotence etc. Each patient should decide if they would like to have this test. 5. Discussed safe driving and no use of smart phone while driving 6. Age-appropriate immunizations were discussed. A tetanus booster is needed every 10 years. Flu vaccine is recommended every year just before the start of the flu season. Shingles vaccine is recommended after age 50 but not all insurances cover it. Pneumonia vaccine is given after age 65 unless there are certain comorbidities for which it is started earlier. 7. Diagnostic labs were discussed. These could include/not limited to CBC CMP and lipids with fasting blood glucose and insulin levels. Vitamin D and hemoglobin A1c testing might be appropriate. All quetsions answered to patients satisfaction. Patient verbalized understanding of diagnosis and treatments explained. To call sooner prior to next visit it any questions/concerns arise. Case discussed with collaborating physician Jennifer Gar who reviewed the assessment and plan. Chart, medications, labs, vital signs reviewed. Dictation was accomplished with the use of [employer] voice recognition software, prone to medical misidentifications and grammatical errors. This is unintentional and the practitioner does try to identify and correct these, but some could still be present. Please do not hesitate to contact practitioner for clarification. 01/15/2024 Primary insomnia (ICD-10 - F51.01) Heath is a 53-year-old male who presents the office for weight f/u. #Obesity 02/05/23: 309lbs, BMI 44. 04/10/23: 308.7 lbs, BMI: 44.29Patient was unable to find Wegovy that he was prescribed last visit. States that he is interested in Contrave as his mom is on this. I did discuss with him extensively risk of serotonin syndrome with use of Contrave due to its component of Wellbutrin and he is on Celexa. He states that his mom is on Celexa as well as utilizes Contrave. I discussed that I have no problem implementing this medication as long as he is aware of potential side effects with 2 antidepressants. Discussed extensively serotonin syndrome as a possible complication. Can send the medication to the pharmacy and if his insurance does not approve it can send to [facility]. Educated on potential side effects of medication and that he should avoid alcohol. Patient does not drink alcohol. Discussed potential insomnia. Educated on serotonin syndrome with Contrave and to monitor for signs and symptoms as well as potential suicidal ideation. We will follow-up in 4 weeks with SECA scale. 07/17/2023: Weight 309.86, BMI 42.02. He was originally seen in [place] where he was started on wegovy but it was not available at surrounding pharmacies. He was then see at our location where he was started on Contrave. He reports contrave was interferring with Celexa so patient self discontinued. Patient exercises frequently with resistance training and treadmill but has been constantly sick the past couple months so frequency has gone down. He reports his biggest barrier is diet, he knows he can make changes and eat out less. Patient does not have recent labs so we did in office HgbA1c with result of 6.3 indicating pre-diabetes. Based on these results, we will submit for Ozempic. Patient is aware that it may not get covered with prediabetic code. We had a sample in office and I gave that to patient today until we hear about Ozempic coverage. If Ozempic is denied, we will continue semaglutide here and office and submit for Wegovy once we reach a dose of 1mg. Seca was reviewed with patient. 09/12/23: Weight: 289.7 lbs, BMI 42.85. Patient has been getting Semaglutide 0.5 mg in office since he hasn't been able to get the injection at the pharmacy. Will resend Wegovy 1 mg Rx through insurance for approval. Patient recieved Semaglutide 0.5 mg in office today. Tolerating medication dose well with mild constipation but no other ADRs. Patient is still working on improving his diet, but is exercising 4x/week. 10/11/2023: Weight 294, BMI 42.18. Patient graduated an effort, continuing to lose slow, steady weight. Adamantly declined Wegovy 1 mg because he did not lose 5% of his weight, but patient has since lost 5% of his weight. Congratulated on effort, continue to try to exercise with upper body as his right ankle is healing from a recent fracture. Will increase semaglutide 1 mg in the meantime. 11/20/2023: Weight 292.3, BMI 41.94. Patient having some difficulty with exercise secondary to Achilles injury, following with orthopedics, getting MRI in the next few weeks. Otherwise, he states he is not making the best nutrition choices as well because he just expresses frustration in regards to the injury setting him back. Taking Wegovy 1 mg, will increase to Wegovy 1.7 but discussed the importance of lifestyle modifications in conjunction with weight loss for fat loss all trying to maintain muscle. Patient understanding. 01/15/2024: Weight 289, BMI 41.53: Continue with Wegovy 1.7 mg, exercise limited due to Achilles injury, but has clearance after the 16 of this month so is looking forward to getting back into a routine. Discussed lifestyle, continue Wegovy 1.7 mg until lifestyle habit changes continue to improve. # Patient going to obtain fasting blood work prior to next visit #Depression with anxiety, patient is on Celexa 10 mg. Patient sees a psychiatrist / psychologist for his mental health. Today's PHQ-9 score is 3 indicating minimal concerns for depression. #Insomnia, patient is currently on Ambien to help with sleep. Continue current regimen. #Hyperlipidemia, patient has a history of elevated lipid leveles. Patient was educated and is aware of lifestyle modifications to make to improve levels. Time spent with patient 30 minutes or greater than 50% of patient occasion and care coronation Patient to follow-up in 6 weeks, will review labs, obtain second shingles vaccine, and discussed weight management. All quetsions answered to patients satisfaction. Patient verbalized understanding of diagnosis and treatments explained. To call sooner prior to next visit it any questions/concerns arise. Case discussed with collaborating physician Jennifer Gar who reviewed the assessment and plan. Chart, medications, labs, vital signs reviewed. Dictation was accomplished with the use of [employer] voice recognition software, prone to medical misidentifications and grammatical errors. This is unintentional and the practitioner does try to identify and correct these, but some could still be present. Please do not hesitate to contact practitioner for clarification. 10/11/2023 Hyperlipidemia, unspecified hyperlipidemia type (ICD-10 - E78.5) Heath is a 53-year-old male who presents the office for weight f/u. #Obesity 02/05/23: 309lbs, BMI 44. /07/02: 308.7 lbs, BMI: 44.29Patient was unable to find Wegovy that he was prescribed last visit. States that he is interested in Contrave as his mom is on this. I did discuss with him extensively risk of serotonin syndrome with use of Contrave due to its component of Wellbutrin and he is on Celexa. He states that his mom is on Celexa as well as utilizes Contrave. I discussed that I have no problem implementing this medication as long as he is aware of potential side effects with 2 antidepressants. Discussed extensively serotonin syndrome as a possible complication. Can send the medication to the pharmacy and if his insurance does not approve it can send to [facility]. Educated on potential side effects of medication and that he should avoid alcohol. Patient does not drink alcohol. Discussed potential insomnia. Educated on serotonin syndrome with Contrave and to monitor for signs and symptoms as well as potential suicidal ideation. We will follow-up in 4 weeks with SECA scale. 07/17/2023: Weight 309.86, BMI 42.02. He was originally seen in [place] where he was started on wegovy but it was not available at surrounding pharmacies. He was then see at our location where he was started on Contrave. He reports contrave was interferring with Celexa so patient self discontinued. Patient exercises frequently with resistance training and treadmill but has been constantly sick the past couple months so frequency has gone down. He reports his biggest barrier is diet, he knows he can make changes and eat out less. Patient does not have recent labs so we did in office HgbA1c with result of 6.3 indicating pre-diabetes. Based on these results, we will submit for Ozempic. Patient is aware that it may not get covered with prediabetic code. We had a sample in office and I gave that to patient today until we hear about Ozempic coverage. If Ozempic is denied, we will continue semaglutide here and office and submit for Wegovy once we reach a dose of 1mg. Seca was reviewed with patient. 09/12/23: Weight: 289.7 lbs, BMI 42.85. Patient has been getting Semaglutide 0.5 mg in office since he hasn't been able to get the injection at the pharmacy. Will resend Wegovy 1 mg Rx through insurance for approval. Patient recieved Semaglutide 0.5 mg in office today. Tolerating medication dose well with mild constipation but no other ADRs. Patient is still working on improving his diet, but is exercising 4x/week. 10/11/2023: Weight 294, BMI 42.18. Patient graduated an effort, continuing to lose slow, steady weight. Adamantly declined Wegovy 1 mg because he did not lose 5% of his weight, but patient has since lost 5% of his weight. Congratulated on effort, continue to try to exercise with upper body as his right ankle is healing from a recent fracture. Will increase semaglutide 1 mg in the meantime. After consultation and careful review of medical history, this patient would benefit from Wegovy based off of the following criteria met: Patient is over the age of 18, has a BMI of 42. Additional comorbidities include hyperlipidemia. Patient has trialed other methods of weight loss including improving diet, exercise without success over three months. This medication is prescribed by or in consultation with a board certified obesity and weight management physician (Dr. Kyra Gar or Dr. Yasmany Gar). #Depression with anxiety, patient is on Celexa 10 mg. Patient sees a psychiatrist / psychologist for his mental health. Today's PHQ-9 score is 3 indicating minimal concerns for depression. #Insomnia, patient is currently on Ambien to help with sleep. Continue current regimen. #Hyperlipidemia, patient has a history of elevated lipid leveles. Will obtain labs before next visit to further assess. Patient was educated and is aware of lifestyle modifications to make to improve levels. Time spent with patient 30 minutes or greater than 50% of patient occasion and care coronation Follow-up in 4 weeks, sooner as needed All quetsions answered to patients satisfaction. Patient verbalized understanding of diagnosis and treatments explained. To call sooner prior to next visit it any questions/concerns arise. Case discussed with collaborating physician Jennifer Gar who reviewed the assessment and plan. Chart, medications, labs, vital signs reviewed. Dictation was accomplished with the use of [employer] voice recognition software, prone to medical misidentifications and grammatical errors. This is unintentional and the practitioner does try to identify and correct these, but some could still be present. Please do not hesitate to contact practitioner for clarification. 11/20/2023 Primary insomnia (ICD-10 - F51.01) Heath is a 53-year-old male who presents the office for weight f/u. #Obesity 02/05/23: 309lbs, BMI 44. 04/10/23: 308.7 lbs, BMI: 44.29Patient was unable to find Wegovy that he was prescribed last visit. States that he is interested in Contrave as his mom is on this. I did discuss with him extensively risk of serotonin syndrome with use of Contrave due to its component of Wellbutrin and he is on Celexa. He states that his mom is on Celexa as well as utilizes Contrave. I discussed that I have no problem implementing this medication as long as he is aware of potential side effects with 2 antidepressants. Discussed extensively serotonin syndrome as a possible complication. Can send the medication to the pharmacy and if his insurance does not approve it can send to [facility]. Educated on potential side effects of medication and that he should avoid alcohol. Patient does not drink alcohol. Discussed potential insomnia. Educated on serotonin syndrome with Contrave and to monitor for signs and symptoms as well as potential suicidal ideation. We will follow-up in 4 weeks with SECA scale. 07/17/2023: Weight 309.86, BMI 42.02. He was originally seen in [place] where he was started on wegovy but it was not available at surrounding pharmacies. He was then see at our location where he was started on Contrave. He reports contrave was interferring with Celexa so patient self discontinued. Patient exercises frequently with resistance training and treadmill but has been constantly sick the past couple months so frequency has gone down. He reports his biggest barrier is diet, he knows he can make changes and eat out less. Patient does not have recent labs so we did in office HgbA1c with result of 6.3 indicating pre-diabetes. Based on these results, we will submit for Ozempic. Patient is aware that it may not get covered with prediabetic code. We had a sample in office and I gave that to patient today until we hear about Ozempic coverage. If Ozempic is denied, we will continue semaglutide here and office and submit for Wegovy once we reach a dose of 1mg. Seca was reviewed with patient. 09/12/23: Weight: 289.7 lbs, BMI 42.85. Patient has been getting Semaglutide 0.5 mg in office since he hasn't been able to get the injection at the pharmacy. Will resend Wegovy 1 mg Rx through insurance for approval. Patient recieved Semaglutide 0.5 mg in office today. Tolerating medication dose well with mild constipation but no other ADRs. Patient is still working on improving his diet, but is exercising 4x/week. 10/11/2023: Weight 294, BMI 42.18. Patient graduated an effort, continuing to lose slow, steady weight. Adamantly declined Wegovy 1 mg because he did not lose 5% of his weight, but patient has since lost 5% of his weight. Congratulated on effort, continue to try to exercise with upper body as his right ankle is healing from a recent fracture. Will increase semaglutide 1 mg in the meantime. 11/20/2023: Weight 292.3, BMI 41.94. Patient having some difficulty with exercise secondary to Achilles injury, following with orthopedics, getting MRI in the next few weeks. Otherwise, he states he is not making the best nutrition choices as well because he just expresses frustration in regards to the injury setting him back. Taking Wegovy 1 mg, will increase to Wegovy 1.7 but discussed the importance of lifestyle modifications in conjunction with weight loss for fat loss all trying to maintain muscle. Patient understanding. #Depression with anxiety, patient is on Celexa 10 mg. Patient sees a psychiatrist / psychologist for his mental health. Today's PHQ-9 score is 3 indicating minimal concerns for depression. #Insomnia, patient is currently on Ambien to help with sleep. Continue current regimen. #Hyperlipidemia, patient has a history of elevated lipid leveles. Will obtain labs before next visit to further assess. Patient was educated and is aware of lifestyle modifications to make to improve levels. Time spent with patient 30 minutes or greater than 50% of patient occasion and care coronation Follow-up for second shingles vaccine in 8 weeks, and for weight management 4 weeks after that visit. All quetsions answered to patients satisfaction. Patient verbalized understanding of diagnosis and treatments explained. To call sooner prior to next visit it any questions/concerns arise. Case discussed with collaborating physician Jennifer Gar who reviewed the assessment and plan. Chart, medications, labs, vital signs reviewed. Dictation was accomplished with the use of [employer] voice recognition software, prone to medical misidentifications and grammatical errors. This is unintentional and the practitioner does try to identify and correct these, but some could still be present. Please do not hesitate to contact practitioner for clarification. 02/27/2024 Encounter for immunization (ICD-10 - Z23) Heath is a 53-year-old male who presents the office for weight f/u. #Obesity 02/05/23: 309lbs, BMI 44. /07/02: 308.7 lbs, BMI: 44.29Patient was unable to find Wegovy that he was prescribed last visit. States that he is interested in Contrave as his mom is on this. I did discuss with him extensively risk of serotonin syndrome with use of Contrave due to its component of Wellbutrin and he is on Celexa. He states that his mom is on Celexa as well as utilizes Contrave. I discussed that I have no problem implementing this medication as long as he is aware of potential side effects with 2 antidepressants. Discussed extensively serotonin syndrome as a possible complication. Can send the medication to the pharmacy and if his insurance does not approve it can send to [facility]. Educated on potential side effects of medication and that he should avoid alcohol. Patient does not drink alcohol. Discussed potential insomnia. Educated on serotonin syndrome with Contrave and to monitor for signs and symptoms as well as potential suicidal ideation. We will follow-up in 4 weeks with SECA scale. 07/17/2023: Weight 309.86, BMI 42.02. He was originally seen in [place] where he was started on wegovy but it was not available at surrounding pharmacies. He was then see at our location where he was started on Contrave. He reports contrave was interferring with Celexa so patient self discontinued. Patient exercises frequently with resistance training and treadmill but has been constantly sick the past couple months so frequency has gone down. He reports his biggest barrier is diet, he knows he can make changes and eat out less. Patient does not have recent labs so we did in office HgbA1c with result of 6.3 indicating pre-diabetes. Based on these results, we will submit for Ozempic. Patient is aware that it may not get covered with prediabetic code. We had a sample in office and I gave that to patient today until we hear about Ozempic coverage. If Ozempic is denied, we will continue semaglutide here and office and submit for Wegovy once we reach a dose of 1mg. Seca was reviewed with patient. 09/12/23: Weight: 289.7 lbs, BMI 42.85. Patient has been getting Semaglutide 0.5 mg in office since he hasn't been able to get the injection at the pharmacy. Will resend Wegovy 1 mg Rx through insurance for approval. Patient recieved Semaglutide 0.5 mg in office today. Tolerating medication dose well with mild constipation but no other ADRs. Patient is still working on improving his diet, but is exercising 4x/week. 10/11/2023: Weight 294, BMI 42.18. Patient graduated an effort, continuing to lose slow, steady weight. Adamantly declined Wegovy 1 mg because he did not lose 5% of his weight, but patient has since lost 5% of his weight. Congratulated on effort, continue to try to exercise with upper body as his right ankle is healing from a recent fracture. Will increase semaglutide 1 mg in the meantime. 11/20/2023: Weight 292.3, BMI 41.94. Patient having some difficulty with exercise secondary to Achilles injury, following with orthopedics, getting MRI in the next few weeks. Otherwise, he states he is not making the best nutrition choices as well because he just expresses frustration in regards to the injury setting him back. Taking Wegovy 1 mg, will increase to Wegovy 1.7 but discussed the importance of lifestyle modifications in conjunction with weight loss for fat loss all trying to maintain muscle. Patient understanding. 01/15/2024: Weight 289, BMI 41.53: Continue with Wegovy 1.7 mg, exercise limited due to Achilles injury, but has clearance after the th of this month so is looking forward to getting back into a routine. Discussed lifestyle, continue Wegovy 1.7 mg until lifestyle habit changes continue to improve. 02/27/2024: Weight 280, BMI 40. Patient congratulated, continuing to lose slow, steady weight. Continue with Wegovy 1.7 mg. Having left knee pain for which is being worked up by [facility] at this time so exercise is limited but working on higher protein and nutrition # Following with [facility] for left knee pain, awaiting MRI # Blood work reviewed from 02/24/2024, CBC, and cholesterol panel all within normal limits. Got blood work through his work, had physical 02/2024. States he does not want to do a physical through us as he gets it done through his work. Had EKG done at that time which was within normal limits. #Depression with anxiety, patient is on Celexa 10 mg. Patient sees a psychiatrist / psychologist for his mental health. Today's PHQ-9 score is 3 indicating minimal concerns for depression. #Insomnia, patient is currently on Ambien to help with sleep. Continue current regimen. Time spent with patient 30 minutes or greater than 50% of patient occasion and care coronation Patient to follow-up in 6 weeks, will review labs, obtain second shingles vaccine, and discussed weight management. All quetsions answered to patients satisfaction. Patient verbalized understanding of diagnosis and treatments explained. To call sooner prior to next visit it any questions/concerns arise. Case discussed with collaborating physician Jennifer Gar who reviewed the assessment and plan. Chart, medications, labs, vital signs reviewed. Dictation was accomplished with the use of [employer] voice recognition software, prone to medical misidentifications and grammatical errors. This is unintentional and the practitioner does try to identify and correct these, but some could still be present. Please do not hesitate to contact practitioner for clarification. 11/20/2023 Hyperlipidemia, unspecified hyperlipidemia type (ICD-10 - E78.5) Heath is a 53-year-old male who presents the office for weight f/u. #Obesity 02/05/23: 309lbs, BMI 44. 11/07/02: 308.7 lbs, BMI: 44.29Patient was unable to find Wesamara that he was prescribed last visit. States that he is interested in Contrave as his mom is on this. I did discuss with him extensively risk of serotonin syndrome with use of Contrave due to its component of Wellbutrin and he is on Celexa. He states that his mom is on Celexa as well as utilizes Contrave. I discussed that I have no problem implementing this medication as long as he is aware of potential side effects with 2 antidepressants. Discussed extensively serotonin syndrome as a possible complication. Can send the medication to the pharmacy and if his insurance does not approve it can send to [facility]. Educated on potential side effects of medication and that he should avoid alcohol. Patient does not drink alcohol. Discussed potential insomnia. Educated on serotonin syndrome with Contrave and to monitor for signs and symptoms as well as potential suicidal ideation. We will follow-up in 4 weeks with JOSEY pinzon. 07/17/2023: Weight 309.86, BMI 42.02. He was originally seen in [place] where he was started on wegovy but it was not available at surrounding pharmacies. He was then see at our location where he was started on Contrave. He reports contrave was interferring with Celexa so patient self discontinued. Patient exercises frequently with resistance training and treadmill but has been constantly sick the past couple months so frequency has gone down. He reports his biggest barrier is diet, he knows he can make changes and eat out less. Patient does not have recent labs so we did in office HgbA1c with result of 6.3 indicating pre-diabetes. Based on these results, we will submit for Ozempic. Patient is aware that it may not get covered with prediabetic code. We had a sample in office and I gave that to patient today until we hear about Ozempic coverage. If Ozempic is denied, we will continue semaglutide here and office and submit for Wegovy once we reach a dose of 1mg. Seca was reviewed with patient. 09/12/23: Weight: 289.7 lbs, BMI 42.85. Patient has been getting Semaglutide 0.5 mg in office since he hasn't been able to get the injection at the pharmacy. Will resend Wegovy 1 mg Rx through insurance for approval. Patient recieved Semaglutide 0.5 mg in office today. Tolerating medication dose well with mild constipation but no other ADRs. Patient is still working on improving his diet, but is exercising 4x/week. 10/11/2023: Weight 294, BMI 42.18. Patient graduated an effort, continuing to lose slow, steady weight. Adamantly declined Wegovy 1 mg because he did not lose 5% of his weight, but patient has since lost 5% of his weight. Congratulated on effort, continue to try to exercise with upper body as his right ankle is healing from a recent fracture. Will increase semaglutide 1 mg in the meantime. 11/20/2023: Weight 292.3, BMI 41.94. Patient having some difficulty with exercise secondary to Achilles injury, following with orthopedics, getting MRI in the next few weeks. Otherwise, he states he is not making the best nutrition choices as well because he just expresses frustration in regards to the injury setting him back. Taking Wegovy 1 mg, will increase to Wegovy 1.7 but discussed the importance of lifestyle modifications in conjunction with weight loss for fat loss all trying to maintain muscle. Patient understanding. #Depression with anxiety, patient is on Celexa 10 mg. Patient sees a psychiatrist / psychologist for his mental health. Today's PHQ-9 score is 3 indicating minimal concerns for depression. #Insomnia, patient is currently on Ambien to help with sleep. Continue current regimen. #Hyperlipidemia, patient has a history of elevated lipid leveles. Will obtain labs before next visit to further assess. Patient was educated and is aware of lifestyle modifications to make to improve levels. Time spent with patient 30 minutes or greater than 50% of patient occasion and care coronation Follow-up for second shingles vaccine in 8 weeks, and for weight management 4 weeks after that visit. All quetsions answered to patients satisfaction. Patient verbalized understanding of diagnosis and treatments explained. To call sooner prior to next visit it any questions/concerns arise. Case discussed with collaborating physician Jennifer Gar who reviewed the assessment and plan. Chart, medications, labs, vital signs reviewed. Dictation was accomplished with the use of [employer] voice recognition software, prone to medical misidentifications and grammatical errors. This is unintentional and the practitioner does try to identify and correct these, but some could still be present. Please do not hesitate to contact practitioner for clarification. 01/15/2024 Hyperlipidemia, unspecified hyperlipidemia type (ICD-10 - E78.5) Heath is a 53-year-old male who presents the office for weight f/u. #Obesity 02/05/23: 309lbs, BMI 44. 04/10/23: 308.7 lbs, BMI: 44.29Patient was unable to find Wegovy that he was prescribed last visit. States that he is interested in Contrave as his mom is on this. I did discuss with him extensively risk of serotonin syndrome with use of Contrave due to its component of Wellbutrin and he is on Celexa. He states that his mom is on Celexa as well as utilizes Contrave. I discussed that I have no problem implementing this medication as long as he is aware of potential side effects with 2 antidepressants. Discussed extensively serotonin syndrome as a possible complication. Can send the medication to the pharmacy and if his insurance does not approve it can send to [facility]. Educated on potential side effects of medication and that he should avoid alcohol. Patient does not drink alcohol. Discussed potential insomnia. Educated on serotonin syndrome with Contrave and to monitor for signs and symptoms as well as potential suicidal ideation. We will follow-up in 4 weeks with IESHAA scale. 07/17/2023: Weight 309.86, BMI 42.02. He was originally seen in [place] where he was started on wegovy but it was not available at surrounding pharmacies. He was then see at our location where he was started on Contrave. He reports contrave was interferring with Celexa so patient self discontinued. Patient exercises frequently with resistance training and treadmill but has been constantly sick the past couple months so frequency has gone down. He reports his biggest barrier is diet, he knows he can make changes and eat out less. Patient does not have recent labs so we did in office HgbA1c with result of 6.3 indicating pre-diabetes. Based on these results, we will submit for Ozempic. Patient is aware that it may not get covered with prediabetic code. We had a sample in office and I gave that to patient today until we hear about Ozempic coverage. If Ozempic is denied, we will continue semaglutide here and office and submit for Wegovy once we reach a dose of 1mg. Seca was reviewed with patient. 09/12/23: Weight: 289.7 lbs, BMI 42.85. Patient has been getting Semaglutide 0.5 mg in office since he hasn't been able to get the injection at the pharmacy. Will resend Wegovy 1 mg Rx through insurance for approval. Patient recieved Semaglutide 0.5 mg in office today. Tolerating medication dose well with mild constipation but no other ADRs. Patient is still working on improving his diet, but is exercising 4x/week. 10/11/2023: Weight 294, BMI 42.18. Patient graduated an effort, continuing to lose slow, steady weight. Adamantly declined Wegovy 1 mg because he did not lose 5% of his weight, but patient has since lost 5% of his weight. Congratulated on effort, continue to try to exercise with upper body as his right ankle is healing from a recent fracture. Will increase semaglutide 1 mg in the meantime. 11/20/2023: Weight 292.3, BMI 41.94. Patient having some difficulty with exercise secondary to Achilles injury, following with orthopedics, getting MRI in the next few weeks. Otherwise, he states he is not making the best nutrition choices as well because he just expresses frustration in regards to the injury setting him back. Taking Wegovy 1 mg, will increase to Wegovy 1.7 but discussed the importance of lifestyle modifications in conjunction with weight loss for fat loss all trying to maintain muscle. Patient understanding. 01/15/2024: Weight 289, BMI 41.53: Continue with Wegovy 1.7 mg, exercise limited due to Achilles injury, but has clearance after the 16th of this month so is looking forward to getting back into a routine. Discussed lifestyle, continue Wegovy 1.7 mg until lifestyle habit changes continue to improve. # Patient going to obtain fasting blood work prior to next visit #Depression with anxiety, patient is on Celexa 10 mg. Patient sees a psychiatrist / psychologist for his mental health. Today's PHQ-9 score is 3 indicating minimal concerns for depression. #Insomnia, patient is currently on Ambien to help with sleep. Continue current regimen. #Hyperlipidemia, patient has a history of elevated lipid leveles. Patient was educated and is aware of lifestyle modifications to make to improve levels. Time spent with patient 30 minutes or greater than 50% of patient occasion and care coronation Patient to follow-up in 6 weeks, will review labs, obtain second shingles vaccine, and discussed weight management. All quetsions answered to patients satisfaction. Patient verbalized understanding of diagnosis and treatments explained. To call sooner prior to next visit it any questions/concerns arise. Case discussed with collaborating physician Jennifer Gar who reviewed the assessment and plan. Chart, medications, labs, vital signs reviewed. Dictation was accomplished with the use of [employer] voice recognition software, prone to medical misidentifications and grammatical errors. This is unintentional and the practitioner does try to identify and correct these, but some could still be present. Please do not hesitate to contact practitioner for clarification. 07/17/2023 Pre-diabetes (ICD-10 - R73.03) #obesity 02/05/23: 309lbs, BMI 44. 04/10/23: 308.7 lbs, BMI: 44.29Patient was unable to find Wegovy that he was prescribed last visit. States that he is interested in Contrave as his mom is on this. I did discuss with him extensively risk of serotonin syndrome with use of Contrave due to its component of Wellbutrin and he is on Celexa. He states that his mom is on Celexa as well as utilizes Contrave. I discussed that I have no problem implementing this medication as long as he is aware of potential side effects with 2 antidepressants. Discussed extensively serotonin syndrome as a possible complication. Can send the medication to the pharmacy and if his insurance does not approve it can send to [facility]. Educated on potential side effects of medication and that he should avoid alcohol. Patient does not drink alcohol. Discussed potential insomnia. Educated on serotonin syndrome with Contrave and to monitor for signs and symptoms as well as potential suicidal ideation. We will follow-up in 4 weeks with SECA scale. #07/17/2023: Weight 309.86, BMI 42.02. He was originally seen in [place] where he was started on wegovy but it was not available at surrounding pharmacies. He was then see at our location where he was started on Contrave. He reports contrave was interferring with Celexa so patient self discontinued. Patient exercises frequently with resistance training and treadmill but has been constantly sick the past couple months so frequency has gone down. He reports his biggest barrier is diet, he knows he can make changes and eat out less. Patient does not have recent labs so we did in office HgbA1c with result of 6.3 indicating pre-diabetes. Based on these results, we will submit for Ozempic. Patient is aware that it may not get covered with prediabetic code. We had a sample in office and I gave that to patient today until we hear about Ozempic coverage. If Ozempic is denied, we will continue semaglutide here and office and submit for Wegovy once we reach a dose of 1mg. Seca was reviewed with patient. #Depression with anxiety, patient is on Celexa 10 mg. Educated on serotonin syndrome with Contrave and to monitor for signs and symptoms as well as potential suicidal ideation. #Insomnia, patient is currently on zolpidem for help with sleep. Educated on continued compliance with this medication. #Hyperlipidemia, patient had elevated lipid levels educated on dietary lifestyle changes. Patient following up for complete physical in 6 to 8 weeks, sooner as needed. Working on Ozempic coverage in the meantime Time spent with patient 30 minutes with greater than 50% of patient occasion and care coordination All quetsions answered to patients satisfaction. Patient verbalized understanding of diagnosis and treatments explained. To call sooner prior to next visit it any questions/concerns arise. Case discussed with collaborating physician Jennifer aGr who reviewed the assessment and plan. Chart, medications, labs, vital signs reviewed. Dictation was accomplished with the use of [employer] voice recognition software, prone to medical misidentifications and grammatical errors. This is unintentional and the practitioner does try to identify and correct these, but some could still be present. Please do not hesitate to contact practitioner for clarification. 09/12/2023 Hyperlipidemia, unspecified hyperlipidemia type (ICD-10 - E78.5) Heath is a 53-year-old male who presents the office for complete physical exam # Patient up-to-date on all routine screening and vaccines, will obtain shingles #1 today, get second shingles dose in the next 4 to 6 months. Educated on proper use, side effects. #Numbness / Tingling of Right Hand: patient states he has numbness and tingling of the right 4th and 5th digits of the hand that has been present 70% of the time in the last four weeks. 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 Denies muscle weakness or loss of full ROM. PE was WNL, neurovasularly intact, and negative Tinnel and De Quervian tests. Patient educated that this may be an side effect of the Semaglutide injection and we can stop injection if patient would like. Patient isn't too concerned at this point and would like to continue with medication. Education given to patient that he should contact us or visit the ER if numbness / tingling spreads up arm, becomes worse, or experiences muscle weakness / loss of control of fingers. #Obesity 02/05/23: 309lbs, BMI 44. 04/10/23: 308.7 lbs, BMI: 44.29Patient was unable to find Wegovy that he was prescribed last visit. States that he is interested in Contrave as his mom is on this. I did discuss with him extensively risk of serotonin syndrome with use of Contrave due to its component of Wellbutrin and he is on Celexa. He states that his mom is on Celexa as well as utilizes Contrave. I discussed that I have no problem implementing this medication as long as he is aware of potential side effects with 2 antidepressants. Discussed extensively serotonin syndrome as a possible complication. Can send the medication to the pharmacy and if his insurance does not approve it can send to [facility]. Educated on potential side effects of medication and that he should avoid alcohol. Patient does not drink alcohol. Discussed potential insomnia. Educated on serotonin syndrome with Contrave and to monitor for signs and symptoms as well as potential suicidal ideation. We will follow-up in 4 weeks with SECA scale. 07/17/2023: Weight 309.86, BMI 42.02. He was originally seen in [place] where he was started on wegovy but it was not available at surrounding pharmacies. He was then see at our location where he was started on Contrave. He reports contrave was interferring with Celexa so patient self discontinued. Patient exercises frequently with resistance training and treadmill but has been constantly sick the past couple months so frequency has gone down. He reports his biggest barrier is diet, he knows he can make changes and eat out less. Patient does not have recent labs so we did in office HgbA1c with result of 6.3 indicating pre-diabetes. Based on these results, we will submit for Ozempic. Patient is aware that it may not get covered with prediabetic code. We had a sample in office and I gave that to patient today until we hear about Ozempic coverage. If Ozempic is denied, we will continue semaglutide here and office and submit for Wegovy once we reach a dose of 1mg. Seca was reviewed with patient. 09/12/23: Weight: 289.7 lbs, BMI 42.85. Patient has been getting Semaglutide 0.5 mg in office since he hasn't been able to get the injection at the pharmacy. Will resend Wegovy 1 mg Rx through insurance for approval. Patient recieved Semaglutide 0.5 mg in office today. Tolerating medication dose well with mild constipation but no other ADRs. Patient is still working on improving his diet, but is exercising 4x/week. After consultation and careful review of medical history, this patient would benefit from Wegovy based off of the following criteria met: Patient is over the age of 18, has a BMI of 42. Additional comorbidities include depression, hyperlipidemia. Patient has trialed other methods of weight loss including improving diet, exercise without success over three months. This medication is prescribed by or in consultation with a board certified obesity and weight management physician (Dr. Kyra Gar or Dr. Yasmany Gar). #Depression with anxiety, patient is on Celexa 10 mg. Patient sees a psychiatrist / psychologist for his mental health. Today's PHQ-9 score is 3 indicating minimal concerns for depression. # Will obtain fasting blood work today #Insomnia, patient is currently on Ambien to help with sleep. Continue current regimen. #Hyperlipidemia, patient has a history of elevated lipid leveles. Will obtain labs before next visit to further assess. Patient was educated and is aware of lifestyle modifications to make to improve levels. Patient has pending lab orders for CBC, CMP, TSH, PSA LIPID and urine testing. Will be completed prior to next visit. Patient following up in 4 weeks for weight loss managment visit or sooner PRN. Patient seen and examined. Comprehensive discussion was done on the following. 1. Nutrition: It is important to follow a healthy diet based on lots of vegetables and legumes and good fat. Avoid processed food and processed carbohydrates. Prepare your own meals. Read labels and avoid high fructose corn syrup, processed chemicals added to increase shelf life and preprepared meals. Avoid fast foods. Eat slowly and plan meals for a week. Try to count calories and be mindful of daily calorie intake. Get into the habit of keeping an eye on your weight by using an appropriate scale. Learn to log exercise and discussed fitness Apps like [employer]iapal/loseit which can help keep log off calories taken versus calories burned. Local food should be preferred. Discussed Dirty Dozen Versus Clean Fifteen. Discussed healthy supplements like fish oil, Tumeric, Curcumin, Melatonin, Resveratrol, Probiotics, Vitamin-D, Alpha-Lipoic acid, Vitamin-D and coconut oil. 2. It is important to exercise regularly. Is a good habit to walk at least 30 minutes a day. Gentle weightlifting with standard precautions to protect the back. Finding activity like cycling or hiking and get into the habit of engaging in it. Stretching before and after the exercises important. It is also important to contact me if there are any problems like shortness of breath, chest pain, back pain and joint or muscle pain associated with the exercise. 3. Discussed age appropriate screening guidelines. Colonoscopy needs to start at age 50 with stool for occult blood as appropriate. There is a new test that can test for genetic abnormalities in the stool sample, Cologuard. This would not replace a colonoscopy but could be used as a screening tool for patients who do not want a colonoscopy. We discussed the importance of early detection of colon cancer. 4. Discussed current PSA screening. PSA screening can be done in most patients between age 50 and 65. However early detection of prostate cancer needs to carefully be balanced with complications with treatment. These include incontinence, impotence etc. Each patient should decide if they would like to have this test. 5. Discussed safe driving and no use of smart phone while driving 6. Age-appropriate immunizations were discussed. A tetanus booster is needed every 10 years. Flu vaccine is recommended every year just before the start of the flu season. Shingles vaccine is recommended after age 50 but not all insurances cover it. Pneumonia vaccine is given after age 65 unless there are certain comorbidities for which it is started earlier. 7. Diagnostic labs were discussed. These could include/not limited to CBC CMP and lipids with fasting blood glucose and insulin levels. Vitamin D and hemoglobin A1c testing might be appropriate. All quetsions answered to patients satisfaction. Patient verbalized understanding of diagnosis and treatments explained. To call sooner prior to next visit it any questions/concerns arise. Case discussed with collaborating physician Jennifer Gar who reviewed the assessment and plan. Chart, medications, labs, vital signs reviewed. Dictation was accomplished with the use of [employer] voice recognition software, prone to medical misidentifications and grammatical errors. This is unintentional and the practitioner does try to identify and correct these, but some could still be present. Please do not hesitate to contact practitioner for clarification. 09/12/2023 Encounter for immunization (ICD-10 - Z23) Heath is a 53-year-old male who presents the office for complete physical exam # Patient up-to-date on all routine screening and vaccines, will obtain shingles #1 today, get second shingles dose in the next 4 to 6 months. Educated on proper use, side effects. #Numbness / Tingling of Right Hand: patient states he has numbness and tingling of the right 4th and 5th digits of the hand that has been present 70% of the time in the last four weeks. 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 Denies muscle weakness or loss of full ROM. PE was WNL, neurovasularly intact, and negative Tinnel and De Quervian tests. Patient educated that this may be an side effect of the Semaglutide injection and we can stop injection if patient would like. Patient isn't too concerned at this point and would like to continue with medication. Education given to patient that he should contact us or visit the ER if numbness / tingling spreads up arm, becomes worse, or experiences muscle weakness / loss of control of fingers. #Obesity 02/05/23: 309lbs, BMI 44. 04/10/23: 308.7 lbs, BMI: 44.29Patient was unable to find Wegovy that he was prescribed last visit. States that he is interested in Contrave as his mom is on this. I did discuss with him extensively risk of serotonin syndrome with use of Contrave due to its component of Wellbutrin and he is on Celexa. He states that his mom is on Celexa as well as utilizes Contrave. I discussed that I have no problem implementing this medication as long as he is aware of potential side effects with 2 antidepressants. Discussed extensively serotonin syndrome as a possible complication. Can send the medication to the pharmacy and if his insurance does not approve it can send to [facility]. Educated on potential side effects of medication and that he should avoid alcohol. Patient does not drink alcohol. Discussed potential insomnia. Educated on serotonin syndrome with Contrave and to monitor for signs and symptoms as well as potential suicidal ideation. We will follow-up in 4 weeks with SECA scale. 07/17/2023: Weight 309.86, BMI 42.02. He was originally seen in [place] where he was started on wegovy but it was not available at surrounding pharmacies. He was then see at our location where he was started on Contrave. He reports contrave was interferring with Celexa so patient self discontinued. Patient exercises frequently with resistance training and treadmill but has been constantly sick the past couple months so frequency has gone down. He reports his biggest barrier is diet, he knows he can make changes and eat out less. Patient does not have recent labs so we did in office HgbA1c with result of 6.3 indicating pre-diabetes. Based on these results, we will submit for Ozempic. Patient is aware that it may not get covered with prediabetic code. We had a sample in office and I gave that to patient today until we hear about Ozempic coverage. If Ozempic is denied, we will continue semaglutide here and office and submit for Wegovy once we reach a dose of 1mg. Seca was reviewed with patient. 09/12/23: Weight: 289.7 lbs, BMI 42.85. Patient has been getting Semaglutide 0.5 mg in office since he hasn't been able to get the injection at the pharmacy. Will resend Wegovy 1 mg Rx through insurance for approval. Patient recieved Semaglutide 0.5 mg in office today. Tolerating medication dose well with mild constipation but no other ADRs. Patient is still working on improving his diet, but is exercising 4x/week. After consultation and careful review of medical history, this patient would benefit from Wegovy based off of the following criteria met: Patient is over the age of 18, has a BMI of 42. Additional comorbidities include depression, hyperlipidemia. Patient has trialed other methods of weight loss including improving diet, exercise without success over three months. This medication is prescribed by or in consultation with a board certified obesity and weight management physician (Dr. Kyra Gar or Dr. Yasmany Gar). #Depression with anxiety, patient is on Celexa 10 mg. Patient sees a psychiatrist / psychologist for his mental health. Today's PHQ-9 score is 3 indicating minimal concerns for depression. # Will obtain fasting blood work today #Insomnia, patient is currently on Ambien to help with sleep. Continue current regimen. #Hyperlipidemia, patient has a history of elevated lipid leveles. Will obtain labs before next visit to further assess. Patient was educated and is aware of lifestyle modifications to make to improve levels. Patient has pending lab orders for CBC, CMP, TSH, PSA LIPID and urine testing. Will be completed prior to next visit. Patient following up in 4 weeks for weight loss managment visit or sooner PRN. Patient seen and examined. Comprehensive discussion was done on the following. 1. Nutrition: It is important to follow a healthy diet based on lots of vegetables and legumes and good fat. Avoid processed food and processed carbohydrates. Prepare your own meals. Read labels and avoid high fructose corn syrup, processed chemicals added to increase shelf life and preprepared meals. Avoid fast foods. Eat slowly and plan meals for a week. Try to count calories and be mindful of daily calorie intake. Get into the habit of keeping an eye on your weight by using an appropriate scale. Learn to log exercise and discussed fitness Apps like [employer] which can help keep log off calories taken versus calories burned. Local food should be preferred. Discussed Dirty Dozen Versus Clean Fifteen. Discussed healthy supplements like fish oil, Tumeric, Curcumin, Melatonin, Resveratrol, Probiotics, Vitamin-D, Alpha-Lipoic acid, Vitamin-D and coconut oil. 2. It is important to exercise regularly. Is a good habit to walk at least 30 minutes a day. Gentle weightlifting with standard precautions to protect the back. Finding activity like cycling or hiking and get into the habit of engaging in it. Stretching before and after the exercises important. It is also important to contact me if there are any problems like shortness of breath, chest pain, back pain and joint or muscle pain associated with the exercise. 3. Discussed age appropriate screening guidelines. Colonoscopy needs to start at age 50 with stool for occult blood as appropriate. There is a new test that can test for genetic abnormalities in the stool sample, Cologuard. This would not replace a colonoscopy but could be used as a screening tool for patients who do not want a colonoscopy. We discussed the importance of early detection of colon cancer. 4. Discussed current PSA screening. PSA screening can be done in most patients between age 50 and 65. However early detection of prostate cancer needs to carefully be balanced with complications with treatment. These include incontinence, impotence etc. Each patient should decide if they would like to have this test. 5. Discussed safe driving and no use of smart phone while driving 6. Age-appropriate immunizations were discussed. A tetanus booster is needed every 10 years. Flu vaccine is recommended every year just before the start of the flu season. Shingles vaccine is recommended after age 50 but not all insurances cover it. Pneumonia vaccine is given after age 65 unless there are certain comorbidities for which it is started earlier. 7. Diagnostic labs were discussed. These could include/not limited to CBC CMP and lipids with fasting blood glucose and insulin levels. Vitamin D and hemoglobin A1c testing might be appropriate. All quetsions answered to patients satisfaction. Patient verbalized understanding of diagnosis and treatments explained. To call sooner prior to next visit it any questions/concerns arise. Case discussed with collaborating physician Jennifer Gar who reviewed the assessment and plan. Chart, medications, labs, vital signs reviewed. Dictation was accomplished with the use of [employer] voice recognition software, prone to medical misidentifications and grammatical errors. This is unintentional and the practitioner does try to identify and correct these, but some could still be present. Please do not hesitate to contact practitioner for clarification. PLAN OF TREATMENT Pending Test Test Name Order Date LIPID PANEL, STANDARD 07/17/2023 COMPREHENSIVE METABOLIC PANEL 07/17/2023 CBC (INCLUDES DIFF/PLT) 07/17/2023 URINALYSIS, COMPLETE 07/17/2023 PSA (FREE AND TOTAL) 07/17/2023 TSH 07/17/2023 Next Appt Details Provider Name:MERI KRAMER, 1 07/27/2023 01:30:00 PM, [address], [place], [address], Insurance Providers Payer Name Payer Address Payer Phone Subscriber Number Group Number Insured Name Patient Relationship to Insured Coverage Start Date Coverage End Date [facility] [address] [place] [address] [id number] Heath Babin Self - patient is the insured 2 MEDICATIONS ADMINISTERED Medication Instructions Date of Administration Dosage Notes Semaglutide 08/21/2023 0.5 mg Semaglutide 08/28/2023 0.5 mg Semaglutide 09/04/2023 0.5 mg Semaglutide 09/12/2023 .5 mg Semaglutide 09/18/2023 0.5 mg Semaglutide 09/25/2023 0.5 mg Semaglutide 10/02/2023 0.5 mg Semaglutide 10/11/2023 1 mg MEDICAL (GENERAL) HISTORY Medical History History ICD Code depression Arthritis anxiety obesity insomnia Surgical History Surgery Date(Month/Year) Lap band surgery 2009 Appendix 1997
--- OUTSIDE RECORDS SUMMARY | 2024-05-21 12:18 | XMS_ITS ---
Author Organization [facility] Address [address] [place] [address] Care Team Providers Care Photoengraving Proofer Name Role Phone ELSA LAUGHLIN Unavailable [phone] MERI KRAMER [phone] REASON FOR VISIT 6 week f/un Encounters Encounter Location Date Provider Diagnosis [facility] [address] [place] [address] 02/28/2024 MREI KRAMER PLAN OF TREATMENT Next Appt Details Provider Name:MERI KRAMER, 1 07/27/2023 01:30:00 PM, [address], [place], [address], Progress Notes * Heath ANTONYDOB:[birth year] (53 yo M)Acc No.[id number]:02/28/2024 Progress Notes Patient:??ARPANLanceHeath Provider:??MERI KRAMER PA-C :1970?Age:53 Y?Sex:Ma le Date:02/28/2024 Address:[address], [place], [place] Subjective: * Chief Complaints: * ?1. 6 week f/un. * Medical History:?? Objective: Assessment: Plan: * Treatment: * Images: Billing Information: * Visit Code:?? * Procedure Codes:?? Care Plan Details* * Sign off status: Pending * Provider:??MERI KRAMER PA-C Date:??02/09
--- OUTSIDE RECORDS SUMMARY | 2024-05-21 12:18 | XMS_ITS ---
Author Organization [facility] Address [address] [place] [address] Care Team Providers Care Press And Blow Machine Tender Name Role Phone ELSA LAUGHLIN Unavailable [phone] MERI KRAMER [phone] Encounters Encounter Location Date Provider Diagnosis [facility] [address] [place] [address] 04/15/2024 MERI KRAMER PLAN OF TREATMENT Next Appt Details Provider Name:MERI KRAMER, 1 07/27/2023 01:30:00 PM, [address], [place], [address], Progress Notes * Heath ANTONYDOB:[birth year] (53 yo M)Acc No.[id number]:04/15/2024 Patient:??Heath ANTONY Provider:??MERI KRAMER PA-C :1970?Age:53 Y?Sex:Thierno ngo Date:04/15/2024 Address:[address], [address] [facility] Subjective: * Chief Complaints: * ? * Medical History:?? Objective: Assessment: Plan: * Treatment: * Images: Billing Information: * Visit Code:?? * Procedure Codes:?? * Sign off status: Pending * Provider:??MERI KRAMER PA-C Date:??11/2023
--- NOTE | 2024-05-21 12:21 | A.OFFVIS_ITS ---
Vital Signs 05/21/24 12:33 Height 6 ft Weight 286 lb BMI 38.8 Intake Visit Reasons: PO- LT knee 04/15/24 NE Intake Note: Heath a 53 year old male who presents today for a post operative s/p left knee medial meniscectomy and chondroplasty 04/15/24 NE. Patient reports he has completed his course of antibiotics. He start PT and was advised to stop warm compress and to switch to cool compress due to wound healing. Patient expresses pain on the anterior aspect of the knee. He says today he experienced some numbness. Ambulation of stairs exacerbates his pain. Ambulation on leveled ground does not affect him. Allergies No Known Allergies Allergy (Verified 05/21/24 12:34) Medication List - Last Reconciled 05/21/24 by July Webb PA-C celecoxib 200 mg PO BID citalopram 20 mg PO DAILY hydrocodone-acetaminophen 5-325 mg 1 tab PO Q8H PRN 7 days semaglutide (weight loss) (Wegovy) mg subcut zolpidem 10 mg PO BEDTIME PRN HPI HPI PO- LT knee 04/15/24 NE: Details: 53-year-old gentleman returns to the office today status post left knee arthroscopy April [address] Caban. States he still has very minimal swelling around the medial portal site. No redness no drainage. He is working with physical therapy. 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 No active drainage. swelling has improved. No flatulence, no purulence. ROM is 0-95 degrees. Calf supple, nontender. NVI. Assessment & Plan Assessment & Plan (1) Status post arthroscopy of left knee: Code(s): Z98.890 - Other specified postprocedural states Category: Surgical Plan: Reassurance given that things are healing well. I feel as though he has some scar tissue around portal site. No evidence of infection. He will continue to work with physical therapy and return to see us back in 4 weeks for potential return to work, sooner if needed. Coding Level of Care Code Global (31846) Diagnoses Status post arthroscopy of left knee Z98.890
[2024-05-21 12:33] VITALS: BMI 38.8
== END 2024-05-21 12:42 | disposition home or self-care (01) ==
PROVIDERS: PCP Physician Assistant; Visit Provider Physician Assistant
DX: Z98.890 Other specified postprocedural states (principal)
CPT/HCPCS: 99024

== ENCOUNTER → 2024-05-21 12:14 | Outpatient (BNVA) | payer OTHER, SELFPAY | PROVIDERS: PCP Physician Assistant; Visit Provider Physician Assistant | DX: Z98.890 Other specified postprocedural states (principal) | CPT/HCPCS: 99212 ==

== ENCOUNTER 2024-06-18 11:21 | Outpatient (AMB) | payer OTHER, SELFPAY ==
[2024-06-18 11:36] VITALS: BMI 38.8
--- NOTE | 2024-06-18 11:36 | MHC.OFFVIS ---
Vital Signs 06/18/24 11:36 Height 6 ft Weight 286 lb BMI 38.8 Intake Visit Reasons: PO- LT knee 04/15/24 NE Intake Note: Heath is a 53 year old male who presents today for a post operative visit s/p LT knee on 04/15/24. Patient reports he is doing well, states tenderness at incision site. He has been attending PT and has concerns of flexibility. He states he is not able to kneel down. Allergies No Known Allergies Allergy (Verified 06/18/24 11:38) Medication List - Last Reconciled 06/18/24 by July Webb PA-C celecoxib 200 mg PO BID citalopram 20 mg PO DAILY semaglutide (weight loss) (Wegovy) mg subcut zolpidem 10 mg PO BEDTIME PRN HPI HPI PO- LT knee 04/15/24 NE: Details: 53-year-old gentleman returns to the office today 2 months status post left knee arthroscopy with Dr. Caban on 04/15/2024. The patient continues to work with physical therapy but continues to experience some tenderness along the portal sites of the knee. He also experiences some limitations with extension and flexion. He also experiences difficulty with bending down or going up and downstairs. States he has been working with physical therapy to improve this. He remains out of work. 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 There is some tenderness over the patellar tendon of the left knee. He also has tenderness along the medial portal site. No active drainage. swelling has improved. No flatulence, no purulence. ROM is 0-95 degrees. Calf supple, nontender. NVI. Assessment & Plan Assessment & Plan (1) Status post arthroscopy of left knee: Code(s): Z98.890 - Other specified postprocedural states Category: Surgical (2) Patellofemoral arthritis of left knee: Code(s): M17.12 - Unilateral primary osteoarthritis, left knee Category: Medical Plan Dr. Caban was available to see the patient with me today. A lengthy discussion was had with the patient and his in the office today about the extent of his discomfort and findings intraoperatively. While we were able to treat the meniscus tear medially, he appears to be struggling and continuing to heal from the arthritis within the knee. It is typical to have an arthritic flare after a knee arthroscopy. Reassurance given that he is within the normal limits of postoperative healing and while this is taking longer than expected our goal is to continue with physical therapy, anti-inflammatory use, activity modification. At this time he will continue to remain out of work and will see us back in [address] Caban for reassessment. Coding Level of Care Code Global (45402) Diagnoses Status post arthroscopy of left knee Z98.890 Patellofemoral arthritis of left knee M17.12
--- OUTSIDE RECORDS SUMMARY | 2024-06-18 12:00 | XMS_ITS ---
Author Organization [facility] Address [address] [place] [address] Care Team Providers Care Child Health Associate Name Role Phone ELSA LAUGHLIN Unavailable [phone] MERI KRAMER Unavailable [phone] REASON FOR VISIT New Refill Request MEDICATIONS Medication SIG (Take, Route, Fr equency, Duration) Notes Start Date End Date Status Wegovy 1.7 MG/0.75ML INJECT 1.7MG UNDER THE SKIN WEEKLY for 28 Active Encounters Encounter Location Date Provider Diagnosis [address] [place] [id number] 05/18/2024 MERI KRAMER PLAN OF TREATMENT Medication Medication Name Sig Start Date Stop Date Notes Wegovy 1.7 MG/0.75ML INJECT 1.7MG UNDER THE SKIN WEEKLY for 28 Next Appt Details Provider Name:MERI KRAMER, Priscila 07/09/2024 09:15:00 AM, [address], [place], [address], Progress Notes * ARPANHeath AGULIADOB:[birth year] (53 yo M)Acc No.[id number]:05/18/2024 Patient:??Heath ANTONY :1970?Age:53 Y?Sex:Thierno ngo Address:[address], [place] [address] * Refills?? Refill Wegovy Solution Auto-injector, 1.7 MG/0.75ML, 3 Milliliter, INJECT 1.7MG UNDER THE SKIN WEEKLY, 28, Refills=0 * true * Date:??
--- OUTSIDE RECORDS SUMMARY | 2024-06-18 12:00 | XMS_ITS | Patient Health Record ---
Author Organization [facility] Address [address] [place] [address] Care Team Providers Care Metal Mover Name Role Phone ELSA LAUGHLIN Unavailable [phone] GAR, KYRA Unavailable [phone] DIOGENES DAMON Unavailable [phone] MERI KRAMER Unavailable [phone] ALLERGIES No Known Allergies REASON FOR REFERRAL No Information MEDICATIONS Medication SIG (Take, Route, Frequency, Duration) Notes Start Date End Date Status Citalopram Hydrobromide 20 MG TAKE 1 TABLET BY MOUTH EVERY MORNING Oral for 30 Days Not-Taking Wegovy 0.25 MG/0.5ML 0.25mg Subcutaneous weekly for 30 days PA approved DX:E66.09 02/05/2023 Not-Taking Motrin Active CeleXA 10 MG 1 tablet Orally Once a day Active Zolpidem Tartrate 10 MG TAKE 1 TABLET BY MOUTH EVERY EVENING Oral for 30 Days Active Ibuprofen 800 MG TAKE 1 TABLET BY MOUTH EVERY 8 HOURS NEEDED FOR PAIN Oral for 7 Days as needed Active Wegovy 2.4 MG/0.75ML 2.4 mg Subcutaneous weekly for 30 days Active Wegovy 1.7 MG/0.75ML INJECT 1.7MG UNDER THE SKIN WEEKLY for 28 Active Ambien 10 MG 1 tablet at bedtime as needed Orally Once a day Not-Taking IMMUNIZATIONS Vaccine Route Administration Date Status Comme [...] unspecified (E55.9) Active confirmed Vitamin D deficiency (19548473) Problem Primary insomnia (F51.01) Active confirmed 5309602 Problem Encounter for general adult medical examination without abnormal findings (Z00.00) Active confirmed Adult heal th examination (500707834) Problem Encounter for screening for malignant neoplasm of prostate (Z12.5) Active confirmed 929798135 Problem Encounter for screening for other suspected endocrine disorder (Z13.29) Active confirmed 851256872 Problem Morbid obesity (E66.01) Active confirmed 328342602 Problem Hyperlipidemia, unspecified hyperlipidemia type (E78.5) Active confirmed Hyperlipidaemia (65238609) Problem Anxiety (F41.9) Active confirmed Anxiet y (30567250) Problem Hypothyroidism, unspecified type (E03.9) Active confirmed Hypothyroidism (75033250) Problem Arthritis (M19.90) Active confirmed Arthritis (1883558) Problem BMI 40.0-44.9, adult (Z68.41) Active confirmed 042332349 Problem Depression with anxiety (F41.8) Active confirmed 864632778 Problem Obesity (E66.9) Active confirmed Obesit y (064043931) VITAL SIGNS Heart Rate 71 /min 05/26/2024 Oximetry 98 % 05/26/2024 Blood pressure diastolic 82 mm Hg 05/26/2024 Height 70 in 05/26/2024 Blood pressure systolic 122 mm Hg 05/26/2024 Weight 290.6 lbs 05/26/2024 BMI 41.69 kg/m2 05/26/2024 Encounters Encounter Location Date Provider Diagnosis [facility] [address] [place] [address] 08/21/[address] [facility] [address] [place] [address] 08/28/[address] [facility] [address] [place] [address] 09/04/[address] [facility] [address] [place] [address] 09/18/[address] [facility] [address] [place] [address] 09/25/[address] [facility] [address] [place] [address] 10/02/[address] [facility] [address] [place] [address] 10/19/[address] [facility] [address] [place] [address] 11/28/[address] [facility] [address] [place] [address] 02/17/[address] [facility] [address] [place] [address] 02/18/[address] [facility] [address] [place] [address] 02/28/[address] [facility] [address] [place] [address] 04/15/[address] [facility] [address] [place] [address] 07/17/2023 MERI NIA Morbid obesity E66.0 1 ; BMI 40.0-44.9, adult Z68.41 ; Depression with anxiety F41.8 ; Primary insomnia F51.01 ; Hyperlipidemia, unspecified hyperlipidemia type E78.5 ; Vitamin D deficiency, unspecified E55.9 and Pre-diabetes R73.[address] [facility] [address] [place] [address] 09/12/2023 MERI NIA Adult general medica l exam Z00.00 ; Numbness of hand R20.0 ; Morbid obesity E66.01 ; BMI 40.0-44.9, adult Z68.41 ; Depression with anxiety F41.8 ; Primary insomnia F51.01 ; Hyperlipidemia, unspecified hyperlipidemia type E78.5 and Encounter for immunization Z23 [facility] [address] [place] [address] 10/11/2023 MERI NIA Morbid obesity E66.0 1 ; BMI 40.0-44.9, adult Z68.41 ; Numbness of hand R20.0 ; Depression with anxiety F41.8 ; Primary insomnia F51.01 and Hyperlipidemia, unspecified hyperlipidemia type E78.5 [facility] [address] [place] [address] 11/20/2023 MERI NIA Morbid obesity E66.0 1 ; BMI 40.0-44.9, adult Z68.41 ; Numbness of hand R20.0 ; Depression with anxiety F41.8 ; Primary insomnia F51.01 and Hyperlipidemia, unspecified hyperlipidemia type E78.5 [facility] [address] [place] [address] 01/15/2024 MERI NIA Morbid obesity E66.0 1 ; BMI 40.0-44.9, adult Z68.41 ; Numbness of hand R20.0 ; Depression with anxiety F41.8 ; Primary insomnia F51.01 and Hyperlipidemia, unspecified hyperlipidemia type E78.5 [facility] [address] [place] [address] 02/27/2024 MERI NIA Morbid obesity E66.0 1 ; BMI 40.0-44.9, adult Z68.41 ; Depression with anxiety F41.8 ; Primary insomnia F51.01 ; Hyperlipidemia, unspecified hyperlipidemia type E78.5 and Encounter for immunization Z23 [facility] [address] [address] 05/26/2024 MERI NIA Morbid obesity E66.0 1 ; BMI 40.0-44.9, adult Z68.41 ; Depression with anxiety F41.8 ; Primary insomnia F51.01 ; Hyperlipidemia, unspecified hyperlipidemia type E78.5 and Encounter for immunization Z23 [facility] [address] [address] 08/14/2023 ELSA LAUGHLIN [facility] [address] [address] 08/26/2023 ELSA LAUGHLIN [facility] [address] [address] 09/18/2023 MERI NIA [address] [facility] [address] [place] [address] 12/02/2023 ELSA LAUGHLIN Morbid obesity E66.0 1 [facility] [address] [place] [address] 12/02/2023 MERI NIA [address] [address] 05/18/2024 MERI NIA ASSESSMENTS Encounter Date Diagnosis Assessment Notes Treatment Notes Treatment Clinical Notes Section Notes 07/17/2023 BMI 40.0-44.9, adult (ICD-10 - Z68.41) #obesity 02/05/23: 309lbs, BMI 44. /07/02: 308.7 lbs, [...] does not approve it can send to [facility]. Educated on potential side effects of medication and that he should avoid alcohol. Patient does not drink alcohol. Discussed potential insomnia. Educated on serotonin syndrome with Contrave and to monitor for signs and symptoms as well as potential suicidal ideation. We will follow-up in 4 weeks with SECA scale. #07/17/2023: Weight 309.86, BMI 42.02. He was originally seen in [place] where he was started on wegovy but [...] Dictation was accomplished with the use of [employer] voice recognition software, prone to medical misidentifications and grammatical errors. This is unintentional and the practitioner does try to identify and correct these, but some could still be present. Please do not hesitate to contact practitioner for clarification. 07/17/2023 Morbid obesity (ICD-10 - E66.01) #obesity 02/05/23: 309lbs, BMI 44. 04/10/23: 308.7 [...] does not approve it can send to [facility]. Educated on potential side effects of medication and that he should avoid alcohol. Patient does not drink alcohol. Discussed potential insomnia. Educated on serotonin syndrome with Contrave and to monitor for signs and symptoms as well as potential suicidal ideation. We will follow-up in 4 weeks with SECA scale. #07/17/2023: Weight 309.86, BMI 42.02. He was originally seen in [place] where he was started on wegovy but [...] Dictation was accomplished with the use of [employer] voice recognition software, prone to medical misidentifications [...] BMI 42.02. He was originally seen in [place] where he was started on wegovy but [...] log exercise and discussed fitness Apps like [employer] which can help keep log off calories [...] Dictation was accomplished with the use of [employer] voice recognition software, prone to medical misidentifications [...] does not approve it can send to [facility]. Educated on potential side effects of medication and that he should avoid alcohol. Patient does not drink alcohol. Discussed potential insomnia. Educated on serotonin syndrome with Contrave and to monitor for signs and symptoms as well as potential suicidal ideation. We will follow-up in 4 weeks with SECA scale. 07/17/2023: Weight 309.86, BMI 42.02. He was originally seen in [place] where he was started on wegovy but [...] log exercise and discussed fitness Apps like [employer] which can help keep log off calories [...] Dictation was accomplished with the use of [employer] voice recognition software, prone to medical misidentifications [...] does not approve it can send to [facility]. Educated on potential side effects of medication and that he should avoid alcohol. Patient does not drink alcohol. Discussed potential insomnia. Educated on serotonin syndrome with Contrave and to monitor for signs and symptoms as well as potential suicidal ideation. We will follow-up in 4 weeks with SECA scale. 07/17/2023: Weight 309.86, BMI 42.02. He was originally seen in [place] where he was started on wegovy but [...] Dictation was accomplished with the use of [employer] voice recognition software, prone to medical misidentifications [...] does not approve it can send to [facility]. Educated on potential side effects of medication and that he should avoid alcohol. Patient does not drink alcohol. Discussed potential insomnia. Educated on serotonin syndrome with Contrave and to monitor for signs and symptoms as well as potential suicidal ideation. We will follow-up in 4 weeks with SECA scale. 07/17/2023: Weight 309.86, BMI 42.02. He was originally seen in [place] where he was started on wegovy but [...] Dictation was accomplished with the use of [employer] voice recognition software, prone to medical misidentifications [...] does not approve it can send to [facility]. Educated on potential side effects of medication and that he should avoid alcohol. Patient does not drink alcohol. Discussed potential insomnia. Educated on serotonin syndrome with Contrave and to monitor for signs and symptoms as well as potential suicidal ideation. We will follow-up in 4 weeks with SECA scale. 07/17/2023: Weight 309.86, BMI 42.02. He was originally seen in [place] where he was started on wegovy but [...] Dictation was accomplished with the use of [employer] voice recognition software, prone to medical misidentifications [...] does not approve it can send to [facility]. Educated on potential side effects of medication and that he should avoid alcohol. Patient does not drink alcohol. Discussed potential insomnia. Educated on serotonin syndrome with Contrave and to monitor for signs and symptoms as well as potential suicidal ideation. We will follow-up in 4 weeks with SECA scale. 07/17/2023: Weight 309.86, BMI 42.02. He was originally seen in [place] where he was started on wegovy but [...] Dictation was accomplished with the use of [employer] voice recognition software, prone to medical misidentifications [...] does not approve it can send to [facility]. Educated on potential side effects of medication and that he should avoid alcohol. Patient does not drink alcohol. Discussed potential insomnia. Educated on serotonin syndrome with Contrave and to monitor for signs and symptoms as well as potential suicidal ideation. We will follow-up in 4 weeks with SECA scale. 07/17/2023: Weight 309.86, BMI 42.02. He was originally seen in [place] where he was started on wegovy but [...] for which is being worked up by [facility] at this time so exercise is limited but working on higher protein and nutrition # Following with [facility] for left knee pain, awaiting MRI [...] Dictation was accomplished with the use of [employer] voice recognition software, prone to medical misidentifications [...] does not approve it can send to [facility]. Educated on potential side effects of medication and that he should avoid alcohol. Patient does not drink alcohol. Discussed potential insomnia. Educated on serotonin syndrome with Contrave and to monitor for signs and symptoms as well as potential suicidal ideation. We will follow-up in 4 weeks with SECA scale. 07/17/2023: Weight 309.86, BMI 42.02. He was originally seen in [place] where he was started on wegovy but [...] for which is being worked up by [facility] at this time so exercise is limited but working on higher protein and nutrition # Following with [facility] for left knee pain, awaiting MRI [...] Dictation was accomplished with the use of [employer] voice recognition software, prone to medical misidentifications and grammatical errors. This is unintentional and the practitioner does try to identify and correct these, but some could still be present. Please do not hesitate to contact practitioner for clarification. 05/26/2024 Morbid obesity (ICD-10 - E66.01) Heath is [...] BMI 42.02. He was originally seen in [place] where he was started on wegovy but [...] for which is being worked up by [facility] at this time so exercise is limited but working on higher protein and nutrition 05/26/2024: Weight 290, BMI 41. Increase Wegovy to 2.4 mg. Going to physical therapy post left meniscus surgery # Follow with orthopedics for left knee pain, Workmen's Comp. Had left meniscus surgery. Going to physical therapy. # Blood work reviewed from 02/24/2024, CBC, [...] Ambien to help with sleep. Continue current regimen.Following with psychiatry in regards to this, trying to get off of Ambien as it does make him more hungry. Follow-up in 6 weeks, sooner as needed Time spent with patient 30 minutes or greater than 50% of patient occasion and care coronation All quetsions answered to patients satisfaction. Patient verbalized understanding of diagnosis and treatments explained. To call sooner prior to next visit it any questions/concerns arise. Case discussed with collaborating physician Jennifer Gar who reviewed the assessment and plan. Chart, medications, labs, vital signs reviewed. Dictation was accomplished with the use of [employer] voice recognition software, prone to medical misidentifications and grammatical errors. This is unintentional and the practitioner does try to identify and correct these, but some could still be present. Please do not hesitate to contact practitioner for clarification. 05/26/2024 BMI 40.0-44.9, adult (ICD-10 - Z68.41) Heath [...] BMI 42.02. He was originally seen in [place] where he was started on wegovy but [...] once we reach a dose of 1mg. Gracea was reviewed with patient. 09/12/23: Weight: 289.7 [...] for which is being worked up by [facility] at this time so exercise is limited but working on higher protein and nutrition 05/26/2024: Weight 290, BMI 41. Increase Wegovy to 2.4 mg. Going to physical therapy post left meniscus surgery # Follow with orthopedics for left knee pain, Workmen's Comp. Had left meniscus surgery. Going to physical therapy. # Blood work reviewed from 02/24/2024, CBC, [...] Ambien to help with sleep. Continue current regimen.Following with psychiatry in regards to this, trying to get off of Ambien as it does make him more hungry. Follow-up in 6 weeks, sooner as needed Time spent with patient 30 minutes or greater than 50% of patient occasion and care coronation All quetsions answered to patients satisfaction. Patient verbalized understanding of diagnosis and treatments explained. To call sooner prior to next visit it any questions/concerns arise. Case discussed with collaborating physician Jennifer Gar who reviewed the assessment and plan. Chart, medications, labs, vital signs reviewed. Dictation was accomplished with the use of [employer] voice recognition software, prone to medical misidentifications [...] does not approve it can send to [facility]. Educated on potential side effects of medication and that he should avoid alcohol. Patient does not drink alcohol. Discussed potential insomnia. Educated on serotonin syndrome with Contrave and to monitor for signs and symptoms as well as potential suicidal ideation. We will follow-up in 4 weeks with SECA scale. 07/17/2023: Weight 309.86, BMI 42.02. He was originally seen in [place] where he was started on wegovy but [...] for which is being worked up by [facility] at this time so exercise is limited but working on higher protein and nutrition # Following with [facility] for left knee pain, awaiting MRI [...] Dictation was accomplished with the use of [employer] voice recognition software, prone to medical misidentifications [...] does not approve it can send to [facility]. Educated on potential side effects of medication and that he should avoid alcohol. Patient does not drink alcohol. Discussed potential insomnia. Educated on serotonin syndrome with Contrave and to monitor for signs and symptoms as well as potential suicidal ideation. We will follow-up in 4 weeks with SECA scale. 07/17/2023: Weight 309.86, BMI 42.02. He was originally seen in [place] where he was started on wegovy but [...] Dictation was accomplished with the use of [employer] voice recognition software, prone to medical misidentifications [...] does not approve it can send to [facility]. Educated on potential side effects of medication and that he should avoid alcohol. Patient does not drink alcohol. Discussed potential insomnia. Educated on serotonin syndrome with Contrave and to monitor for signs and symptoms as well as potential suicidal ideation. We will follow-up in 4 weeks with SECA scale. 07/17/2023: Weight 309.86, BMI 42.02. He was originally seen in [place] where he was started on wegovy but [...] Dictation was accomplished with the use of [employer] voice recognition software, prone to medical misidentifications [...] does not approve it can send to [facility]. Educated on potential side effects of medication and that he should avoid alcohol. Patient does not drink alcohol. Discussed potential insomnia. Educated on serotonin syndrome with Contrave and to monitor for signs and symptoms as well as potential suicidal ideation. We will follow-up in 4 weeks with SECA scale. 07/17/2023: Weight 309.86, BMI 42.02. He was originally seen in [place] where he was started on wegovy but [...] Dictation was accomplished with the use of [employer] voice recognition software, prone to medical misidentifications [...] does not approve it can send to [facility]. Educated on potential side effects of medication and that he should avoid alcohol. Patient does not drink alcohol. Discussed potential insomnia. Educated on serotonin syndrome with Contrave and to monitor for signs and symptoms as well as potential suicidal ideation. We will follow-up in 4 weeks with SECA scale. 07/17/2023: Weight 309.86, BMI 42.02. He was originally seen in [place] where he was started on wegovy but [...] log exercise and discussed fitness Apps like [employer] which can help keep log off calories [...] Dictation was accomplished with the use of [employer] voice recognition software, prone to medical misidentifications and grammatical errors. This is unintentional and the practitioner does try to identify and correct these, but some could still be present. Please do not hesitate to contact practitioner for clarification. 07/17/2023 Depression with anxiety (ICD-10 - F41.8) #obesity 02/05/23: 309lbs, BMI 44. 11: 308.7 lbs, BMI: 44.29Patient was unable to [...] does not approve it can send to [facility]. Educated on potential side effects of medication and that he should avoid alcohol. Patient does not drink alcohol. Discussed potential insomnia. Educated on serotonin syndrome with Contrave and to monitor for signs and symptoms as well as potential suicidal ideation. We will follow-up in 4 weeks with SECA scale. #07/17/2023: Weight 309.86, BMI 42.02. He was originally seen in [place] where he was started on wegovy but [...] Dictation was accomplished with the use of [employer] voice recognition software, prone to medical misidentifications and grammatical errors. This is unintentional and the practitioner does try to identify and correct these, but some could still be present. Please do not hesitate to contact practitioner for clarification. 07/17/2023 Primary insomnia (ICD-10 - F51.01) #obesity 02/05/23: 309lbs, BMI 44. 11/07/02: 308.7 [...] BMI 42.02. He was originally seen in [place] where he was started on wegovy but [...] Dictation was accomplished with the use of [employer] voice recognition software, prone to medical misidentifications [...] of fingers. #Obesity 02/05/23: 309lbs, BMI 44. 11/07/02: 308.7 [...] does not approve it can send to [facility]. Educated on potential side effects of medication and that he should avoid alcohol. Patient does not drink alcohol. Discussed potential insomnia. Educated on serotonin syndrome with Contrave and to monitor for signs and symptoms as well as potential suicidal ideation. We will follow-up in 4 weeks with SECA scale. 07/17/2023: Weight 309.86, BMI 42.02. He was originally seen in [place] where he was started on wegovy but [...] log exercise and discussed fitness Apps like [employer] which can help keep log off calories [...] Dictation was accomplished with the use of [employer] voice recognition software, prone to medical misidentifications [...] does not approve it can send to [facility]. Educated on potential side effects of medication and that he should avoid alcohol. Patient does not drink alcohol. Discussed potential insomnia. Educated on serotonin syndrome with Contrave and to monitor for signs and symptoms as well as potential suicidal ideation. We will follow-up in 4 weeks with SECA scale. 07/17/2023: Weight 309.86, BMI 42.02. He was originally seen in [place] where he was started on wegovy but [...] Dictation was accomplished with the use of [employer] voice recognition software, prone to medical misidentifications [...] does not approve it can send to [facility]. Educated on potential side effects of medication and that he should avoid alcohol. Patient does not drink alcohol. Discussed potential insomnia. Educated on serotonin syndrome with Contrave and to monitor for signs and symptoms as well as potential suicidal ideation. We will follow-up in 4 weeks with SECA scale. 07/17/2023: Weight 309.86, BMI 42.02. He was originally seen in [place] where he was started on wegovy but [...] Dictation was accomplished with the use of [employer] voice recognition software, prone to medical misidentifications [...] does not approve it can send to [facility]. Educated on potential side effects of medication and that he should avoid alcohol. Patient does not drink alcohol. Discussed potential insomnia. Educated on serotonin syndrome with Contrave and to monitor for signs and symptoms as well as potential suicidal ideation. We will follow-up in 4 weeks with SECA scale. 07/17/2023: Weight 309.86, BMI 42.02. He was originally seen in [place] where he was started on wegovy but [...] for which is being worked up by [facility] at this time so exercise is limited but working on higher protein and nutrition # Following with [facility] for left knee pain, awaiting MRI [...] Dictation was accomplished with the use of [employer] voice recognition software, prone to medical misidentifications and grammatical errors. This is unintentional and the practitioner does try to identify and correct these, but some could still be present. Please do not hesitate to contact practitioner for clarification. 05/26/2024 Depression with anxiety (ICD-10 - F41.8) Heath [...] does not approve it can send to [facility]. Educated on potential side effects of medication and that he should avoid alcohol. Patient does not drink alcohol. Discussed potential insomnia. Educated on serotonin syndrome with Contrave and to monitor for signs and symptoms as well as potential suicidal ideation. We will follow-up in 4 weeks with SECA scale. 07/17/2023: Weight 309.86, BMI 42.02. He was originally seen in [place] where he was started on wegovy but [...] for which is being worked up by [facility] at this time so exercise is limited but working on higher protein and nutrition 05/26/2024: Weight 290, BMI 41. Increase Wegovy to 2.4 mg. Going to physical therapy post left meniscus surgery # Follow with orthopedics for left knee pain, Workmen's Comp. Had left meniscus surgery. Going to physical therapy. # Blood work reviewed from 02/24/2024, CBC, [...] Ambien to help with sleep. Continue current regimen.Following with psychiatry in regards to this, trying to get off of Ambien as it does make him more hungry. Follow-up in 6 weeks, sooner as needed Time spent with patient 30 minutes or greater than 50% of patient occasion and care coronation All quetsions answered to patients satisfaction. Patient verbalized understanding of diagnosis and treatments explained. To call sooner prior to next visit it any questions/concerns arise. Case discussed with collaborating physician Jennifer Gar who reviewed the assessment and plan. Chart, medications, labs, vital signs reviewed. Dictation was accomplished with the use of [employer] voice recognition software, prone to medical misidentifications [...] does not approve it can send to [facility]. Educated on potential side effects of medication and that he should avoid alcohol. Patient does not drink alcohol. Discussed potential insomnia. Educated on serotonin syndrome with Contrave and to monitor for signs and symptoms as well as potential suicidal ideation. We will follow-up in 4 weeks with SECA scale. 07/17/2023: Weight 309.86, BMI 42.02. He was originally seen in [place] where he was started on wegovy but [...] Dictation was accomplished with the use of [employer] voice recognition software, prone to medical misidentifications and grammatical errors. This is unintentional and the practitioner does try to identify and correct these, but some could still be present. Please do not hesitate to contact practitioner for clarification. 02/27/2024 Hyperlipidemia, unspecified hyperlipidemia type (ICD-10 - E78.5) eHath is a 53-year-old male who presents the [...] does not approve it can send to [facility]. Educated on potential side effects of medication and that he should avoid alcohol. Patient does not drink alcohol. Discussed potential insomnia. Educated on serotonin syndrome with Contrave and to monitor for signs and symptoms as well as potential suicidal ideation. We will follow-up in 4 weeks with SECA scale. 07/17/2023: Weight 309.86, BMI 42.02. He was originally seen in [place] where he was started on wegovy but [...] for which is being worked up by [facility] at this time so exercise is limited but working on higher protein and nutrition # Following with [facility] for left knee pain, awaiting MRI [...] Dictation was accomplished with the use of [employer] voice recognition software, prone to medical misidentifications and grammatical errors. This is unintentional and the practitioner does try to identify and correct these, but some could still be present. Please do not hesitate to contact practitioner for clarification. 05/26/2024 Primary insomnia (ICD-10 - F51.01) Heath is [...] does not approve it can send to [facility]. Educated on potential side effects of medication and that he should avoid alcohol. Patient does not drink alcohol. Discussed potential insomnia. Educated on serotonin syndrome with Contrave and to monitor for signs and symptoms as well as potential suicidal ideation. We will follow-up in 4 weeks with SECA scale. 07/17/2023: Weight 309.86, BMI 42.02. He was originally seen in [place] where he was started on wegovy but [...] for which is being worked up by [facility] at this time so exercise is limited but working on higher protein and nutrition 05/26/2024: Weight 290, BMI 41. Increase Wegovy to 2.4 mg. Going to physical therapy post left meniscus surgery # Follow with orthopedics for left knee pain, Workmen's Comp. Had left meniscus surgery. Going to physical therapy. # Blood work reviewed from 02/24/2024, CBC, [...] Ambien to help with sleep. Continue current regimen.Following with psychiatry in regards to this, trying to get off of Ambien as it does make him more hungry. Follow-up in 6 weeks, sooner as needed Time spent with patient 30 minutes or greater than 50% of patient occasion and care coronation All quetsions answered to patients satisfaction. Patient verbalized understanding of diagnosis and treatments explained. To call sooner prior to next visit it any questions/concerns arise. Case discussed with collaborating physician Jennifer Gar who reviewed the assessment and plan. Chart, medications, labs, vital signs reviewed. Dictation was accomplished with the use of [employer] voice recognition software, prone to medical misidentifications [...] BMI 42.02. He was originally seen in [place] where he was started on wegovy but [...] Dictation was accomplished with the use of [employer] voice recognition software, prone to medical misidentifications [...] does not approve it can send to [facility]. Educated on potential side effects of medication and that he should avoid alcohol. Patient does not drink alcohol. Discussed potential insomnia. Educated on serotonin syndrome with Contrave and to monitor for signs and symptoms as well as potential suicidal ideation. We will follow-up in 4 weeks with SECA scale. 07/17/2023: Weight 309.86, BMI 42.02. He was originally seen in [place] where he was started on wegovy but [...] Dictation was accomplished with the use of [employer] voice recognition software, prone to medical misidentifications [...] does not approve it can send to [facility]. Educated on potential side effects of medication and that he should avoid alcohol. Patient does not drink alcohol. Discussed potential insomnia. Educated on serotonin syndrome with Contrave and to monitor for signs and symptoms as well as potential suicidal ideation. We will follow-up in 4 weeks with SECA scale. 07/17/2023: Weight 309.86, BMI 42.02. He was originally seen in [place] where he was started on wegovy but [...] log exercise and discussed fitness Apps like [employer]/loseit which can help keep log off calories [...] Dictation was accomplished with the use of [employer] voice recognition software, prone to medical misidentifications and grammatical errors. This is unintentional and the practitioner does try to identify and correct these, but some could still be present. Please do not hesitate to contact practitioner for clarification. 10/11/2023 Primary insomnia (ICD-10 - F51.01) Heath is a 53-year-old male who presents the office for weight f/u. #Obesity 8/29/23: 309lbs, BMI 44. 04/10/23: 308.7 lbs, BMI: [...] does not approve it can send to [facility]. Educated on potential side effects of medication and that he should avoid alcohol. Patient does not drink alcohol. Discussed potential insomnia. Educated on serotonin syndrome with Contrave and to monitor for signs and symptoms as well as potential suicidal ideation. We will follow-up in 4 weeks with SECA scale. 07/17/2023: Weight 309.86, BMI 42.02. He was originally seen in [place] where he was started on wegovy but [...] Dictation was accomplished with the use of [employer] voice recognition software, prone to medical misidentifications and grammatical errors. This is unintentional and the practitioner does try to identify and correct these, but some could still be present. Please do not hesitate to contact practitioner for clarification. 07/17/2023 Hyperlipidemia, unspecified hyperlipidemia type (ICD-10 - E78.5) #obesity 02/05/23: 309lbs, BMI 44. 04/10/23: 308.7 [...] does not approve it can send to [facility]. Educated on potential side effects of medication and that he should avoid alcohol. Patient does not drink alcohol. Discussed potential insomnia. Educated on serotonin syndrome with Contrave and to monitor for signs and symptoms as well as potential suicidal ideation. We will follow-up in 4 weeks with SECA scale. #07/17/2023: Weight 309.86, BMI 42.02. He was originally seen in [place] where he was started on wegovy but [...] Dictation was accomplished with the use of [employer] voice recognition software, prone to medical misidentifications and grammatical errors. This is unintentional and the practitioner does try to identify and correct these, but some could still be present. Please do not hesitate to contact practitioner for clarification. 07/17/2023 Vitamin D deficiency, unspecified (ICD-10 - E55.9) #obesity 02/05/23: 309lbs, BMI 44. 11/07/02: 308.7 [...] BMI 42.02. He was originally seen in [place] where he was started on wegovy but [...] Dictation was accomplished with the use of [employer] voice recognition software, prone to medical misidentifications [...] does not approve it can send to [facility]. Educated on potential side effects of medication and that he should avoid alcohol. Patient does not drink alcohol. Discussed potential insomnia. Educated on serotonin syndrome with Contrave and to monitor for signs and symptoms as well as potential suicidal ideation. We will follow-up in 4 weeks with SECA scale. 07/17/2023: Weight 309.86, BMI 42.02. He was originally seen in [place] where he was started on wegovy but [...] log exercise and discussed fitness Apps like [employer] which can help keep log off calories [...] Dictation was accomplished with the use of [employer] voice recognition software, prone to medical misidentifications [...] does not approve it can send to [facility]. Educated on potential side effects of medication and that he should avoid alcohol. Patient does not drink alcohol. Discussed potential insomnia. Educated on serotonin syndrome with Contrave and to monitor for signs and symptoms as well as potential suicidal ideation. We will follow-up in 4 weeks with SECA scale. 07/17/2023: Weight 309.86, BMI 42.02. He was originally seen in [place] where he was started on wegovy but [...] Dictation was accomplished with the use of [employer] voice recognition software, prone to medical misidentifications [...] BMI 42.02. He was originally seen in [place] where he was started on wegovy but [...] Dictation was accomplished with the use of [employer] voice recognition software, prone to medical misidentifications [...] does not approve it can send to [facility]. Educated on potential side effects of medication and that he should avoid alcohol. Patient does not drink alcohol. Discussed potential insomnia. Educated on serotonin syndrome with Contrave and to monitor for signs and symptoms as well as potential suicidal ideation. We will follow-up in 4 weeks with SECA scale. 07/17/2023: Weight 309.86, BMI 42.02. He was originally seen in [place] where he was started on wegovy but [...] Dictation was accomplished with the use of [employer] voice recognition software, prone to medical misidentifications [...] BMI 42.02. He was originally seen in [place] where he was started on wegovy but [...] for which is being worked up by [facility] at this time so exercise is limited but working on higher protein and nutrition # Following with [facility] for left knee pain, awaiting MRI [...] Dictation was accomplished with the use of [employer] voice recognition software, prone to medical misidentifications and grammatical errors. This is unintentional and the practitioner does try to identify and correct these, but some could still be present. Please do not hesitate to contact practitioner for clarification. 05/26/2024 Hyperlipidemia, unspecified hyperlipidemia type (ICD-10 - E78.5) [...] does not approve it can send to [facility]. Educated on potential side effects of medication and that he should avoid alcohol. Patient does not drink alcohol. Discussed potential insomnia. Educated on serotonin syndrome with Contrave and to monitor for signs and symptoms as well as potential suicidal ideation. We will follow-up in 4 weeks with SECA scale. 07/17/2023: Weight 309.86, BMI 42.02. He was originally seen in [place] where he was started on wegovy but [...] for which is being worked up by [facility] at this time so exercise is limited but working on higher protein and nutrition 05/26/2024: Weight 290, BMI 41. Increase Wegovy to 2.4 mg. Going to physical therapy post left meniscus surgery # Follow with orthopedics for left knee pain, Workmen's Comp. Had left meniscus surgery. Going to physical therapy. # Blood work reviewed from 02/24/2024, CBC, [...] Ambien to help with sleep. Continue current regimen.Following with psychiatry in regards to this, trying to get off of Ambien as it does make him more hungry. Follow-up in 6 weeks, sooner as needed Time spent with patient 30 minutes or greater than 50% of patient occasion and care coronation All quetsions answered to patients satisfaction. Patient verbalized understanding of diagnosis and treatments explained. To call sooner prior to next visit it any questions/concerns arise. Case discussed with collaborating physician Jennifer Gar who reviewed the assessment and plan. Chart, medications, labs, vital signs reviewed. Dictation was accomplished with the use of [employer] voice recognition software, prone to medical misidentifications and grammatical errors. This is unintentional and the practitioner does try to identify and correct these, but some could still be present. Please do not hesitate to contact practitioner for clarification. 05/26/2024 Encounter for immunization (ICD-10 - Z23) Heath [...] does not approve it can send to [facility]. Educated on potential side effects of medication and that he should avoid alcohol. Patient does not drink alcohol. Discussed potential insomnia. Educated on serotonin syndrome with Contrave and to monitor for signs and symptoms as well as potential suicidal ideation. We will follow-up in 4 weeks with SECA scale. 07/17/2023: Weight 309.86, BMI 42.02. He was originally seen in [place] where he was started on wegovy but [...] for which is being worked up by [facility] at this time so exercise is limited but working on higher protein and nutrition 05/26/2024: Weight 290, BMI 41. Increase Wegovy to 2.4 mg. Going to physical therapy post left meniscus surgery # Follow with orthopedics for left knee pain, Workmen's Comp. Had left meniscus surgery. Going to physical therapy. # Blood work reviewed from 02/24/2024, CBC, [...] Ambien to help with sleep. Continue current regimen.Following with psychiatry in regards to this, trying to get off of Ambien as it does make him more hungry. Follow-up in 6 weeks, sooner as needed Time spent with patient 30 minutes or greater than 50% of patient occasion and care coronation All quetsions answered to patients satisfaction. Patient verbalized understanding of diagnosis and treatments explained. To call sooner prior to next visit it any questions/concerns arise. Case discussed with collaborating physician Jennifer Gar who reviewed the assessment and plan. Chart, medications, labs, vital signs reviewed. Dictation was accomplished with the use of [employer] voice recognition software, prone to medical misidentifications [...] BMI 42.02. He was originally seen in [place] where he was started on wegovy but [...] Dictation was accomplished with the use of [employer] voice recognition software, prone to medical misidentifications [...] BMI 42.02. He was originally seen in [place] where he was started on wegovy but [...] Dictation was accomplished with the use of [employer] voice recognition software, prone to medical misidentifications and grammatical errors. This is unintentional and the practitioner does try to identify and correct these, but some could still be present. Please do not hesitate to contact practitioner for clarification. 07/17/2023 Pre-diabetes (ICD-10 - R73.03) #obesity 02/05/23: 309lbs, BMI 44. 11/07/02: 308.7 [...] does not approve it can send to [facility]. Educated on potential side effects of medication and that he should avoid alcohol. Patient does not drink alcohol. Discussed potential insomnia. Educated on serotonin syndrome with Contrave and to monitor for signs and symptoms as well as potential suicidal ideation. We will follow-up in 4 weeks with SECA scale. #07/17/2023: Weight 309.86, BMI 42.02. He was originally seen in [place] where he was started on wegovy but [...] Dictation was accomplished with the use of [employer] voice recognition software, prone to medical misidentifications [...] does not approve it can send to [facility]. Educated on potential side effects of medication and that he should avoid alcohol. Patient does not drink alcohol. Discussed potential insomnia. Educated on serotonin syndrome with Contrave and to monitor for signs and symptoms as well as potential suicidal ideation. We will follow-up in 4 weeks with SECA scale. 07/17/2023: Weight 309.86, BMI 42.02. He was originally seen in [place] where he was started on wegovy but [...] of 1mg. Seca was reviewed with patient. 4/04/24: Weight: 289.7 lbs, BMI 42.85. Patient has [...] log exercise and discussed fitness Apps like [employer] which can help keep log off calories [...] Dictation was accomplished with the use of [employer] voice recognition software, prone to medical misidentifications [...] does not approve it can send to [facility]. Educated on potential side effects of medication and that he should avoid alcohol. Patient does not drink alcohol. Discussed potential insomnia. Educated on serotonin syndrome with Contrave and to monitor for signs and symptoms as well as potential suicidal ideation. We will follow-up in 4 weeks with SECA scale. 07/17/2023: Weight 309.86, BMI 42.02. He was originally seen in [place] where he was started on wegovy but [...] log exercise and discussed fitness Apps like [employer] which can help keep log off calories [...] Dictation was accomplished with the use of [employer] voice recognition software, prone to medical misidentifications [...] 07/17/2023 Next Appt Details Provider Name:MERI KRAMER, Priscila 07/09/2024 09:15:00 AM, [address] , [place], [address], Insurance Providers Payer Name Payer Address Payer Phone Subscriber Number Group Number Insured Name Patient Relationship to Insured Coverage Start Date Coverage End Date [facility] [address] [place] [address] [id number] Heath Babin Self - patient is the insured 2 MEDICATIONS ADMINISTERED Medication Instructions Date of Administration Dosage Notes Semaglutide 08/21/2023 0.5 mg Semaglutide 08/28/2023 0.5 mg Semaglutide 09/04/2023 0.5 mg Semaglutide 09/12/2023 .5 mg Semaglutide 09/18/2023 0.5 mg Semaglutide 09/25/2023 0.5 mg Semaglutide 10/02/2023 0.5 mg Semaglutide 10/11/2023 1 mg MEDICAL (GENERAL) HISTORY Medical History History ICD Code Depression F32.A Arthritis M19.90 Anxiety F41.9 Obesity E66.9 Insomnia, unspecified G47.00 Surgical History Surgery Date(Month/Year) Lap band surgery 2009 Appendix 1997 Left meniscus Apr 2024
--- OUTSIDE RECORDS SUMMARY | 2024-06-18 12:00 | XMS_ITS ---
Author Name [facility] [facility] Address [address] [place] [id number] Selected Encounter This section includes the information on record at [place] for the Encounter. Date/Time Encounter Type Encounter Description Reason Pro vider Source May 01, 2024 03:33 PM Outpatient Encounter PRIMARY CARE/MEDICINE [facility] Encounter Template Text not used by [place] Plan of Treatment: Future Appointments (+ 6 months) and Future Tests (+/- 45 days) The Plan of Treatment section includes future care activities for the patient from all [place] treatmentfacilities. This section includes future appointments and future orders which are active, pending or scheduled. Future Appointments This section includes appointments that were scheduled to occur 6 months from the date of the Encounter, up to a maximum of 20 appointments. The data comes from all [place] treatment facilities. 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
--- OUTSIDE RECORDS SUMMARY | 2024-06-18 12:00 | XMS_ITS | Encounter Summary ---
Author Name [facility] Organization [facility] Address [address] [place] [id number] Selected Encounter This section includes the information on record at [place] for the Encounter. Date/Time Encounter Type Encounter Description Reason Pro vider Source Jun 05, 2024 02:37 PM Outpatient Encounter PRIMARY CARE/MEDICINE [facility] Encounter Template Text not used by [place] Plan of Treatment: Future Appointments (+ 6 months) and Future Tests (+/- 45 days) The Plan of Treatment section includes future care activities for the patient from all [place] treatmentfacilities. This section includes future appointments and future orders which are active, pending or scheduled. Future Appointments This section includes appointments that were scheduled to occur 6 months from the date of the Encounter, up to a maximum of 20 appointments. The data comes from all [place] treatment facilities. Appointment Date/Time Appointment Type Appointme nt Facility Name Jul 15, 2024 11:00 AM AMBULATORY - MEDICINE [facility] Encounter Notes: All associated encounter notes This section contains the clinical notes associated to the Encounter. 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 /judith/ JOSSELIN SCHUMACHER LPN PACT 10 Signed: 06/08/2024 10:06 ANA WATSON
--- OUTSIDE RECORDS SUMMARY | 2024-06-18 12:00 | XMS_ITS | Continuity of Care Document ---
Author Name [facility] Organization [facility] Care Team Providers Care Button Reclaimer Name Role Phone [facility] Unavailable Unavailable Allergies, Adverse Reactions, Alerts Combined list of allergies from Department of [facility] and [facility] facilities. It does not include entries that were removed or entered in error. Substance Category Reaction Severity Reaction type Status Date Reported Comments Source No Known Allergies Drug allergy (disorder) active 08/11/2007 [facility] Encounters Combined list of: 1) Encounters from Department of [facility] facilities going back up to thelast 18 months. 2) Encounters from the Department [facility] facilities going back up to 280 months. Location Location Details Encounter Type Encounter Number Reason For Visit Attending Provider ADM Date DC Date Status Disposition Source [facility] [place] [facility] Outpatient Encounter [id number] 04/28 [facility] [place] [place] [facility] Outpatient Encounter [id number] 05/01 [facility] [place] [place] [facility] Outpatient Encounter [id number] 06/05 [facility] [place] [facility] Procedures Combined list of: 1) Procedures from [facility] facilities going back up to thelast 18 months, not all [place] non-surgical procedures are included; 2) All procedures from the Department [facility] facilities. Procedure Procedure Type Code Date Perfomer Comments Sourc e OTHER APPENDECTOMY 09/11/1996 Do D ISOLATION 12/30/1994 [facility] Social History Combined list of available smoking, tobacco, and other social history from [facility] and [facility] facilities. Social History Type Response Date Comment Margaret mederos This section is an empty social history section. [facility] Plan of Care List of future care activities from Department of Veterans Affairs facilities. Additional future care activities may be listed in the Assessment and Plan section. Date/Time Care Activity Care Activity Detail Facili ty 07/15/2024 AMBULATORY - MEDICINE AM[facility]ULATORY - [facility]ICI [facility] [place] [facility]
--- OUTSIDE RECORDS SUMMARY | 2024-06-18 12:00 | XMS_ITS | Encounter Summary ---
Author Name [facility] Organization [facility] Address [address] [place] [id number] Selected Encounter This section includes the information on record at [place] for the Encounter. Date/Time Encounter Type Encounter Description Reason Pro vider Source Apr 28, 2024 02:27 PM Outpatient Encounter PRIMARY CARE/MEDICINE [facility] Encounter Template Text not used by [place] Plan of Treatment: Future Appointments (+ 6 months) and Future Tests (+/- 45 days) The Plan of Treatment section includes future care activities for the patient from all [place] treatmentfacilities. This section includes future appointments and future orders which are active, pending or scheduled. Future Appointments This section includes appointments that were scheduled to occur 6 months from the date of the Encounter, up to a maximum of 20 appointments. The data comes from all [place] treatment facilities. Appointment Date/Time Appointment Type Appointme nt Facility Name Jul 15, 2024 11:00 AM AMBULATORY - MEDICINE [facility] Encounter Notes: All associated encounter notes [...] RTC TO PACT 5 MERI KRAMER Physician talent acquisition assistant in [place], [place] [address], [place], [place] [id number] /es/ Dacia Reich ADVANCED CHIEF CRUISER Signed: 04/28/2024 14:31 Receipt Acknowledged By: 04/30/2024 11:08 /es/ RADHA CORLEY ADVANCED CHIEF CRUISER 04/28/2024 14:41 /es/ JOSSELIN SCHUMACHER, STOCK PREPARATION OPERATOR PACT 10 for CECELIA JOHNS 05/01/2024 15:34 /es/ GODFREY SALGADO, STOCK PREPARATION OPERATOR STOCK PREPARATION OPERATOR 05/03/2024 23:14 /es/ MARKY GONZALEZRN REGISTERED NURSE 04/28/2024 14:41 /es/ JOSSELIN SCHUMACHER, STOCK PREPARATION OPERATOR PACT 10 04/28/2024 14:48 /es/ EVELINE REYNOLDS ======== --- Original Document --- 04/28/24 PATIENT LETTER (T): ANGE ANTONY [address] [place], [place], [address] Dear Laura, Welcome to patient aligned care [...] the requested records off in person to [address] [place] [address] or you may have them faxed to: [phone] ATTN: PACT 5 *Also please complete the enclosed new patient packet and drop it off at our [facility] location: [address] [place] [address]* If you have any questions please do not hesitate to contact the [facility] [place] call center at [phone]. We look forward to providing your health care! 04/28/2024 ADDENDUM STATUS: COMPLETED Reocrd request sent to [facility] FAX: [phone] /judith/ EVELINE REYNOLDS Signed: 04/28/2024 14:48 DACIA REICH [place] Apr 28, 2024 02:27 PM LETTERS: LOCAL TITLE: PATIENT LETTER (T) STANDARD TITLE: LETTERS DATE OF NOTE: APR 28, 2024@14:27 ENTRY DATE: APR 28, 2024@14:27:31 AUTHOR: DACIA REICH EXP COSIGNER: URGENCY: STATUS: COMPLETED PATIENT LETTER (T) Has ADDENDA DEPARTMENT OF [facility] Toll Free Number Primary Care Telephone Assistance can be reached at extension [phone] [facility] scheduling can be reached at extension [phone] [facility] scheduling can be reached at ext [phone] ANGE ANTONY [address] [place], [place], [address] Dear Laura, Welflorencia to patient aligned care team 5 (PACT [...] the requested records off in person to [address] [place] [address] or you may have them faxed to: [phone] ATTN: PACT 5 *Also please complete the enclosed new patient packet and drop it off at our [facility] location: [address] [place] [address]* If you have any questions please do not hesitate to contact the Department of [facility]s Affairs call center at [phone]. We look forward to providing your health care! 04/28/2024 ADDENDUM STATUS: COMPLETED 60 MINS NEW PT APPT RODOLFO PLEASE REQUEST NON VA RECORDS FROM CONTACT LISTED BELOW RTC TO PACT 5 MERI KRAMER Physician talent acquisition assistant in [place], [place] [address], [place] [address] /es/ Dacia Reich ADVANCED CHIEF CRUISER Signed: 04/28/2024 14:31 Receipt Acknowledged By: * AWAITING SIGNATURE * RADHA CORLEY 04/28/2024 14:41 /es/ JOSSELIN SCHUMACHER LPN PACT 10 for CECELIA JOHNS * AWAITING SIGNATURE * GODFREY SALGADO * AWAITING SIGNATURE * MARKY GONZALEZ 04/28/2024 14:41 /es/ JOSSELIN SCHUMACHER LPN PACT 10 04/28/2024 14:48 /es/ EVELINE REYNOLDS 04/28/2024 ADDENDUM STATUS: COMPLETED Reocrd request sent to [facility] FAX: [phone] /judith/ EVELINE REYNOLDS Signed: 04/28/2024 14:48 Sincerely, Your Primary Care Team [facility] [address] [address] [place] [address] [phone] [facility] [address] [place] [address] [place] [address] [phone] [facility] [address] [facility],[address]st Floor [address] [place] [address] [place] [address] [phone] DACIA REICH [place]
--- OUTSIDE RECORDS SUMMARY | 2024-06-18 12:00 | XMS_ITS ---
Author Organization [facility] Address [address] [place] [address] Care Team Providers Care Revenue Settlements Administrator Name Role Phone ELSA LAUGHLIN Unavailable [phone] MERI KRAMER Unavailable [phone] ALLERGIES No Known Allergies REASON FOR VISIT Patient presents for weight management follow up. Patient recently had left meniscus surgery. MEDICATIONS Medication SIG (Take, Route, Frequency, Duration) Notes Start Date End Date Status Citalopram Hydrobromide 20 MG TAKE 1 TABLET BY MOUTH EVERY MORNING Oral for 30 Days Not-Taking Wegovy 0.25 MG/0.5ML 0.25mg Subcutaneous weekly for 30 days PA approved DX:E66.09 02/05/2023 Not-Taking Ibuprofen 800 MG TAKE 1 TABLET BY MOUTH EVERY 8 HOURS NEEDED FOR PAIN Oral for 7 Days as needed Active Wegovy 1.7 MG/0.75ML INJECT 1.7MG UNDER THE SKIN WEEKLY for 28 Active Ambien 10 MG 1 tablet at bedtime as needed Orally Once a day Not-Taking Motrin Active CeleXA 10 MG 1 tablet Orally Once a day Active Zolpidem Tartrate 10 MG TAKE 1 TABLET BY MOUTH EVERY EVENING Oral for 30 Days Active Wegovy 2.4 MG/0.75ML 2.4 mg Subcutaneous weekly for 30 days Active SOCIAL HISTORY Tobacco Use: Social History Observation Description Date Details (start date - stop date) Never Smoker NA - NA Sex Assigned At : Social History Observation Description Sex Assigned At Unknown Tobacco Use/Smoking Question Answer Notes Are you a nonsmoker Section Notes: PT admitts that stop drinkin g PROBLEMS Problem Type ICD Code Onset Dates Problem Status W/U Status Risk SNOMED Code Notes Problem Arthritis (M19.90) Active confirmed Arthritis (9680850) Problem Anxiety (F41.9) Active confirmed Anxiety (91367469) Problem Obesity (E66.9) Active confirmed Obesity (775964169) VITAL SIGNS Heart Rate 71 /min 05/26/2024 Blood pressure systolic 122 mm Hg 05/26/20 24 Blood pressure diastolic 82 mm Hg 024 Weight 290.6 lbs 05/26/2024 BMI 41.69 kg/m2 05/26/2024 Height 70 in 05/26/2024 Oximetry 98 % 05/26/2024 Encounters Encounter Location Date Provider Diagnosis [facility] [address] [place] [address] 05/26/2024 MERI KRAMER Morbid obesity E66.0 1 ; BMI 40.0-44.9, adult Z68.41 ; Depression with anxiety F41.8 ; Primary insomnia F51.01 ; Hyperlipidemia, unspecified hyperlipidemia type E78.5 and Encounter for immunization Z23 ASSESSMENTS Encounter Date Diagnosis Assessment Notes Treatment Notes Treatment Clinical Notes Section Notes 05/26/2024 Morbid obesity (ICD-10 - E66.01) Heath [...] does not approve it can send to [facility]. Educated on potential side effects of medication and that he should avoid alcohol. Patient does not drink alcohol. Discussed potential insomnia. Educated on serotonin syndrome with Contrave and to monitor for signs and symptoms as well as potential suicidal ideation. We will follow-up in 4 weeks with SECA scale. 07/17/2023: Weight 309.86, BMI 42.02. He was originally seen in [place] where he was started on wegovy but [...] for which is being worked up by [facility] at this time so exercise is [...] Dictation was accomplished with the use of [employer] voice recognition software, prone to medical misidentifications [...] does not approve it can send to [facility]. Educated on potential side effects of medication and that he should avoid alcohol. Patient does not drink alcohol. Discussed potential insomnia. Educated on serotonin syndrome with Contrave and to monitor for signs and symptoms as well as potential suicidal ideation. We will follow-up in 4 weeks with SECA scale. 07/17/2023: Weight 309.86, BMI 42.02. He was originally seen in [place] where he was started on wegovy but [...] for which is being worked up by [facility] at this time so exercise is [...] Dictation was accomplished with the use of [employer] voice recognition software, prone to medical misidentifications [...] does not approve it can send to [facility]. Educated on potential side effects of medication and that he should avoid alcohol. Patient does not drink alcohol. Discussed potential insomnia. Educated on serotonin syndrome with Contrave and to monitor for signs and symptoms as well as potential suicidal ideation. We will follow-up in 4 weeks with SECA scale. 07/17/2023: Weight 309.86, BMI 42.02. He was originally seen in [place] where he was started on wegovy but [...] for which is being worked up by [facility] at this time so exercise is [...] Dictation was accomplished with the use of [employer] voice recognition software, prone to medical misidentifications [...] does not approve it can send to [facility]. Educated on potential side effects of medication and that he should avoid alcohol. Patient does not drink alcohol. Discussed potential insomnia. Educated on serotonin syndrome with Contrave and to monitor for signs and symptoms as well as potential suicidal ideation. We will follow-up in 4 weeks with SECA scale. 07/17/2023: Weight 309.86, BMI 42.02. He was originally seen in [place] where he was started on wegovy but [...] for which is being worked up by [employer] at this time so exercise is limited [...] Dictation was accomplished with the use of [employer] voice recognition software, prone to medical misidentifications [...] does not approve it can send to [facility]. Educated on potential side effects of medication and that he should avoid alcohol. Patient does not drink alcohol. Discussed potential insomnia. Educated on serotonin syndrome with Contrave and to monitor for signs and symptoms as well as potential suicidal ideation. We will follow-up in 4 weeks with SECA scale. 07/17/2023: Weight 309.86, BMI 42.02. He was originally seen in [place] where he was started on wegovy but [...] for which is being worked up by [facility] at this time so exercise is [...] questions/concerns arise. Case discussed with collaborating physician Jeninfer Gar who reviewed the assessment and plan. Chart, medications, labs, vital signs reviewed. Dictation was accomplished with the use of [employer] voice recognition software, prone to medical misidentifications [...] does not approve it can send to [facility]. Educated on potential side effects of medication and that he should avoid alcohol. Patient does not drink alcohol. Discussed potential insomnia. Educated on serotonin syndrome with Contrave and to monitor for signs and symptoms as well as potential suicidal ideation. We will follow-up in 4 weeks with SECA scale. 07/17/2023: Weight 309.86, BMI 42.02. He was originally seen in [place] where he was started on wegovy but [...] for which is being worked up by [facility] at this time so exercise is [...] Dictation was accomplished with the use of [employer] voice recognition software, prone to medical misidentifications and grammatical errors. This is unintentional and the practitioner does try to identify and correct these, but some could still be present. Please do not hesitate to contact practitioner for clarification. PLAN OF TREATMENT Medication Medication Name Sig Start Date Stop Date Notes Wegovy 2.4 MG/0.75ML 2.4 mg Subcutaneous weekly for 30 days Next Appt Details Provider Name:Priscila TORRES 07/09/2024 09:15:00 AM, [address] [facility], [place], [address], Progress Notes * Heath ANTONYDOB:[birth year] (53 yo M)Acc No.[id number]:05/26/2024 Patient:??Heath ANTONY Provider:??MERI KRAMER PA-C :1970?Age:53 Y?Sex:Thierno ngo Date:05/26/2024 Address:[address] [place] [address], [id number] Subjective: * Chief Complaints: * ?1. Patient presents fo r weight management follow up. Patient recently had left meniscus surgery.. * HPI: ?Constitutional:? Heath is a 53-year-old male who presents the office for a weight management follow-up. Patient last seen on 02/27/2024. Currently taking Wegovy 1.7 mg with compliance, without any side effects.Patient states he is interested in increasing to 2.4 mg. Did have a left meniscus surgery in April, with complications of infection postop. Has been healing well since and just tarted physical therapy. Exercise has been limited, and he states when he takes Ambien he is more hungry she was talking to his psychiatrist about adjusting that medication. Otherwise he is feeling well. He ready to get back on track. Body scan showing some muscle gain. Visceral adipose tissue loss. Patient also did gain some fat as well. * ROS:?Constitutional: Patient denies any excessive fatigue with exercise, no weight loss, no fever, no night sweats, no changes in sleep. ???Eyes: No eye discharge, no itching, no redness, no vision changes. Advised the significance of regular eye exams to screen for glaucoma and other eye problems. ???Ear nose throat: No ear pain, No sore throat, no postnasal drip, no runny nose, no sneezing, no hearing changes ???Cardiovascular: No chest pain, no dyspnea on exertion, no PND, no orthopnea, no irregular pulse, no palpitations, no claudication, no diaphoresis, no claudication. ???Respiratory: No chronic cough, no hemoptysis, no sputum, no wheezing, no SOB, no pleuritic pain. ???GI: No diarrhea, + mild constipation, no blood in the stools, no pain associated with eating, no indigestion, no difficulty swallowing, no appetite change. ???Genitourinary: No painful urination, no hesitancy, no blood in the urine, no incontinence, no frequency, no urgency, no abnormal discharge. ???Musculoskeletal: No back pain, no joint pain, no limitations to walking and running, no joint deformity, no joint stiffness, no muscle weakness ???Integumentary: No new skin rash. No new changes in skin moles, no pruritis, no color change. ???Neurological: No history of seizures, no memory loss, no language dysfunction, no inability to concentrate, no localized weakness, no sensation loss, no confusion, no dizziness, no tremor, + Right hand 4th-5th digit numbness and tingling. ???Psychiatric: no anxiety, no depression, no suicidal thoughts, feels safe at home. ???Endocrine: No polyuria, no polyphagia, no polydipsia. No heat/cold intolerance, no excesss thirst. ???Hematological: No easy bruising or bleeding, no lymph node swelling. * Medical History:??Depression , Arthritis, Anxiety, Obesity, Insomnia, unspecified. * Surgical History:??Lap band surgery 2009, Appendix 1996, Left meniscus Apr 2024. * Hospitalization/Major Diagno stic Procedure:??Denies Past Hospitalization. * Family History:??Father: ali ve.??Mother: alive.??2 brother(s) , 1 sister(s) . 2 son(s) . .?? * Social History:?Tobacco Use:??Tobacco Use/Smoking??Are you a??nonsmoker.?PT admitts that stop drinking . * Medications:??Taking Motrin , Taking CeleXA 10 MG Tablet 1 tablet Orally Once a day , Taking Zolpidem Tartrate 10 MG Tablet TAKE 1 TABLET BY MOUTH EVERY EVENING Oral , Taking Ibuprofen 800 MG Tablet TAKE 1 TABLET BY MOUTH EVERY 8 HOURS NEEDED FOR PAIN Oral , Notes to Pharmacist: as needed, Taking Wegovy 1.7 MG/0.75ML Solution Auto-injector INJECT 1.7MG UNDER THE SKIN WEEKLY , Not-Taking Ambien 10 MG Tablet 1 tablet at bedtime as needed Orally Once a day , Not-Taking Citalopram Hydrobromide 20 MG Tablet TAKE 1 TABLET BY MOUTH EVERY MORNING Oral , Not-Taking Wegovy 0.25 MG/0.5ML Solution Auto-injector 0.25mg Subcutaneous weekly , Notes to Pharmacist: CINDY approved DX:E66.09, Medication List reviewed and reconciled with the patient * Allergies:??N.K.D.A. Objective: * Vitals:??HR:71/min, BP:122/8 2mm Hg, Wt:290.6lbs, BMI:41.69Index, Ht: 70 in, Oxygen sat %:98%. * Physical Examination:?General: Age appropriate male, well appearing, no acute distress, speaking in full sentences without respiratory compromise. Well groomed, well developed. Alert, Interactive. Right foot in boot, walking boot. ?Skin: Warm, dry and intact. No lesions/rashes/erythema. ?HEENT: Normocephalic/atraumatic. ?Neck/Thyroid: Supple. Full ROM. ?Lung: Clear to auscultation bilaterally, no wheezes, rales or rhonchi. No barrel chest. Equal chest rise and fall bilaterally. ?Cardiac: S1 and S2 appreciated. No murmurs/rubs or gallops. ?Neuro: CN II-XI grossly intact. Steady gait with ambulation observed. Symmetric reflexes. ?Psych: Stable mood and affect. Assessment: * Assessment: 1.??Morbid obesity - E66.01 (Primary)??2.??BMI 40.0-44.9, adult - Z68.41??3.??Depression with anxiety - F41.8??4.??Primary insomnia - F51.01??5.??Hyperlipidemia, unspecified hyperlipidemia type - E78.5??6.??Encounter for immunization - Z23?? Heath is a 53-year-old mal e who presents the office for weight f/u. [...] BMI 42.02. He was originally seen in [place] where he was started on wegovy but [...] for which is being worked up by [facility] at this time so exercise is [...] Dictation was accomplished with the use of [employer] voice recognition software, prone to medical misidentifications and grammatical errors. This is unintentional and the practitioner does try to identify and correct these, but some could still be present. Please do not hesitate to contact practitioner for clarification. Plan: * Treatment: * Procedure Codes:??67424 P/M OVEN ROASTER, INDIV 15 MIN * Images: Billing Information: * Visit Code:?? 98774 Office Visit, Est Pt., Level 3. Modifiers: SA * Procedure Codes:?? 81660 P/M OVEN ROASTER, INDIV 15 MIN. * Sign off status: Completed true * Provider:?SY KRAMER PA-C Date:??05/10 History and Physical Notes * HPI (History of Present Illness) Category Sub-Category Detail Notes Category Not es Constitutional Heath is a 53-year-old male who presents the office for a weight management follow-up. Patient last seen on 02/27/2024. Currently taking Wegovy 1.7 mg with compliance, without any side effects.Patient states he is interested in increasing to 2.4 mg. Did have a left meniscus surgery in April, with complications of infection postop. Has been healing well since and just tarted physical therapy. Exercise has been limited, and he states when he takes Ambien he is more hungry she was talking to his psychiatrist about adjusting that medication. Otherwise he is feeling well. He ready to get back on track. Body scan showing some muscle gain. Visceral adipose tissue loss. Patient also did gain some fat as well. Physical Examination Category Sub-Category Detail Notes Section Note s General: Age appropriate male, well appearing, no acute distress, speaking in full sentences without respiratory compromise. Well groomed, well developed. Alert, Interactive. Right foot in boot, walking boot. Skin: Warm, dry and intact. No lesions/rashes/erythema. HEENT: Normocephalic/atraumatic. Neck/Thyroid: Supple. Full ROM. Lung: Clear to auscultation bilaterally, no wheezes, rales or rhonchi. No barrel chest. Equal chest rise and fall bilaterally. Cardiac: S1 and S2 appreciated. No murmurs/rubs or gallops. Neuro: CN II-XI grossly intact. Steady gait with ambulation observed. Symmetric reflexes. Psych: Stable mood and affect
--- OUTSIDE RECORDS SUMMARY | 2024-06-18 12:00 | XMS_ITS ---
Author Organization [facility] Address [address] [place] [address] Care Team Providers Care Pierogi Maker Name Role Phone ELSA LAUGHLIN Unavailable [phone] MERI KRAMER [phone] Encounters Encounter Location Date Provider Diagnosis [facility] [address] [place] [address] 04/15/2024 MERI KRAMER PLAN OF TREATMENT Next Appt Details Provider Name:MERI KRAMER, 0 07/09/2024 09:15:00 AM, [address], [place], [address], Progress Notes * Heath ANTONYDOB:[birth year] (53 yo M)Acc No.[id number]:04/15/2024 Patient:??ARPAN Heath Provider:??MERI KRAMER PA-C :1970?Age:53 Y?Sex:Thierno ngo Date:04/15/2024 Address:[address], [facility] Subjective: * Chief Complaints: * ? * Medical History:?? Objective: Assessment: Plan: * Treatment: * Images: Billing Information: * Visit Code:?? * Procedure Codes:?? * Sign off status: Pending * Provider:??MERI KRAMER PA-C Date:??11/2023
== END 2024-06-18 12:52 | disposition home or self-care (01) ==
PROVIDERS: PCP Physician Assistant; Visit Provider Physician Assistant
DX: Z98.890 Other specified postprocedural states (principal); M17.12 Unilateral primary osteoarthritis, left knee
CPT/HCPCS: 99024

== ENCOUNTER → 2024-06-18 11:21 | Outpatient (BNVA) | payer OTHER, SELFPAY | PROVIDERS: PCP Physician Assistant; Visit Provider Physician Assistant | DX: Z47.89 Encounter for other orthopedic aftercare (principal); M17.12 Unilateral primary osteoarthritis, left knee | CPT/HCPCS: 99212 ==

== ENCOUNTER 2024-07-16 09:02 | Outpatient (AMB) | payer OTHER, SELFPAY ==
--- NOTE | 2024-07-16 09:06 | MHC.OFFVIS ---
Intake Visit Reasons: PO- LT knee 04/15/24 NE Intake Note: Heath is a 54 year old male who presents today for a follow up of his left knee s/p Left Knee Medial Meniscectomy and Chondroplasty 04/15/2024. Patient states that he is feeling a little sore since he had PT yesterday. 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 Allergies No Known Allergies Allergy (Verified 07/16/24 09:09) HPI HPI PO- LT knee 04/15/24 NE: Details: Heath is a 54 year old male who presents today for a follow up of his left knee s/p Left Knee Medial Meniscectomy and Chondroplasty 04/15/2024. 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 He has been doing physical therapy and is improving but is not 100%. He has difficulty with stairs and standing from a seated position but the Celebrex and weight loss and physical therapy have been helping. 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 Portals are well healed. Quad strength improved from prior. Assessment & Plan Assessment & Plan (1) Patellofemoral arthritis of left knee: Code(s): M17.12 - Unilateral primary osteoarthritis, left knee Category: Medical Plan: This is a 54-year-old gentleman with patellofemoral arthritis of the left knee. He underwent a medial meniscectomy and, while that was treated surgically, he continues to have discomfort from his patellofemoral OA. He is doing well with physical therapy and I recommend he continue to do that. (2) Tear of medial meniscus of left knee: Code(s): S83.242A - Other tear of medial meniscus, current injury, left knee, initial encounter Category: Medical Plan: Status post medial meniscectomy complicated by anterior knee osteoarthritis. He should remain in physical therapy he may return to light duty for sedentary work only. I will see him back in 6 weeks. Coding Level of Care Code Global (22035) Diagnoses Patellofemoral arthritis of left knee M17.12 Tear of medial meniscus of left knee S83.242A
--- OUTSIDE RECORDS SUMMARY | 2024-07-16 09:12 | XMS_ITS | Continuity of Care Document ---
Author Name [facility] Organization [facility] Care Team Providers Care Claims Auditor Name Role Phone [facility] Unavailable Unavailable Allergies, Adverse Reactions, Alerts Combined list of allergies from Department of Defense and Veterans Affairs facilities. It does not include entries that were removed or entered in error. Substance Category Reaction Severity Reaction type Status Date Reported Comments Source No Known Allergies Drug allergy (disorder) active 08/11/2007 [facility] Encounters Combined list of: 1) Encounters from Department of Veterans Affairs facilities going backup to the last 18 months, not all [place] inpatient encounters are included; 2) Encounters from the Department of Defense facilities going backup to 280 months. Location Location Details Encounter Type Encounter Number Reason For Visit Attending Provider ADM Date DC Date Status Disposition Source [facility] [place] [facility] Outpatient Encounter [id number] 04[place]28 [facility] [place] [facility] [place] [facility] Outpatient Encounter [id number] 05/01 [facility] [place] [facility] [facility] En[facility] [id number] 06/05 [facility] [place] [facility] [place] [facility] Outpatient Encounter [id number] 07/15 [place] [facility] [place] [facility] Procedures Combined list of: 1) Procedures from Department of Veterans Affairs facilities going back up to thelast 18 months, not all [place] non-surgical procedures are included; 2) All procedures from the Department of Defense facilities. Procedure Procedure Type Code Date Perfomer Comments Sourc e OTHER APPENDECTOMY 09/11/1996 [facility] ISOLATION 12/30/1994 [facility] Social History Combined list of available smoking, tobacco, and other social history from Department of Defense and Veterans Affairs facilities. Social History Type Response Date Comment Sour e This section is an empty social history section. [facility]
--- OUTSIDE RECORDS SUMMARY | 2024-07-16 09:12 | XMS_ITS | Encounter Summary ---
Author Name [facility] [facility] [place] Address [address] [place] [id number] Selected Encounter This section includes the information on record at [place] for the Encounter. Date/Time Encounter Type Encounter Description Reason Pro vider Source Jul 15, 2024 12:47 PM Outpatient Encounter PRIMARY CARE/MEDICINE IHE Encounter Template Text not used by [place] Encounter Notes: All associated encounter notes This section contains the clinical notes associated to the Encounter. Date/Time Encounter Note(s) Provider Source Jul 15, 2024 12:51 PM LETTERS: LOCAL TITLE: PATIENT LETTER (B) STANDARD TITLE: LETTERS DATE OF NOTE: JUL 15, 2024@12:51 ENTRY DATE: JUL 15, 2024@12:51:19 AUTHOR: ANA WATSON COSIGNER: URGENCY: STATUS: [place] [address] [phone] * [phone] * ANGE [facility] [address] [place], [place] [address] Date: JUL 15, 2024 Dear : Thank you for choosing [facility] as your primary choice for health care. As a partner in your health care, we are attempting to contact you because we have been unsuccessful in reaching you by phone. We want to assure you that we are doing everything possible to schedule veterans for their appointments. Please call us at to speak with a staff member who can assist you with securing an appointment. Thank you for your service and we look forward to hearing from you soon. Sincerely; [facility] [address] [place] [phone] ANA WATSON
== END 2024-07-16 09:29 | disposition home or self-care (01) ==
PROVIDERS: PCP Physician Assistant; Visit Provider Orthopaedic Surgery
DX: M17.12 Unilateral primary osteoarthritis, left knee (principal); S83.242A Other tear of medial meniscus, current injury, left knee, initial encounter
CPT/HCPCS: 99212

== ENCOUNTER → 2024-07-16 09:02 | Outpatient (BNVA) | payer OTHER, SELFPAY | PROVIDERS: PCP Physician Assistant; Visit Provider Orthopaedic Surgery | DX: M17.12 Unilateral primary osteoarthritis, left knee (principal); S83.242D Other tear of medial meniscus, current injury, left knee, subsequent encounter; X58.XXXD Exposure to other specified factors, subsequent encounter; Z98.890 Other specified postprocedural states | CPT/HCPCS: 99212 ==

== ENCOUNTER 2024-08-17 09:00 | Outpatient (RCR) | payer OTHER, SELFPAY ==
--- NOTE | 2024-05-18 14:57 | MHC.PT.EP ---
[facility] [place] Office [place] Office [place] Office [address] Tyson Villafuerte [address] [phone] F: [phone] F: [phone] F: [phone] F: [phone] Physical Therapy Plan of Care Date of Evaluation: 05/18/24 Date of Surgery: 04/15/24 Diagnosis: M23.92 Unspecified internal derangement of left knee, S83.242A, S83.242A Other tear of medial meniscsus, current injury, left knee encounter, Internal derangement of left knee *Tear of medial meniscus of left knee, 1-2 session with HEP signed by SHIRA Nelson 04/24/24. 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 Script dated 04/24/24: M23.92 Unspecified internal derangement of left knee, S83.242A, S83.242A Other tear of medial meniscsus, current injury, left knee encounter, Internal derangement of left knee *Tear of medial meniscus of left knee, 1-2 session with HEP signed by SHIRA Nelson 04/24/24. Pt was seen in the office for wound care check on 04/24/24, and at that time was advised to apply warm compresses to his knee to aide in edema. He has not been icing his knee. Since time of follow up, pt reports attempting to use a stationary bike on his own at the gym, use of leg extension machine however had increased pain. Pt expressing history of knee edema, recently finishing 10 day course of antibiotics. Pt currently OOW, exhibits swelling at port sites, decreased ROM, and impaired tolerance to complete kneeling/sitting/walking/running. Pt states he was previously out of work for several months earlier in the year related to an R achilles tear/injury and avulsion fracture R fifth metatarsal and had been cleared to RTW before he sustained his injury in February. Pt would benefit from attending skilled PT services at a frequency of 2x/week x 3 weeks to address impairments, implement HEP, and restore mobility to resume PLOF. Pt was educated to refrain from open chain knee extension machine at this time, use stationary bike for gentle ROM aide, isometric QS, SLR into flexion, and gastroc>hamstring stretches. At baseline, pt presents with noted R hip ER. Pt is 290lbs, 6 ft tall. Pt reports at baseline he works 24 hour shifts. Frequency and Duration: The patient will be seen 2x/week x 3 weeks Short Term Goals: 1. L knee AROM 0 degrees extension. (IR: -5 to 120) 2. L knee AROM 120 degrees flexion with sx <2/10 L knee. (IR: -5 to 120 sx end range). 3. Complete SLR with good control (IR: Poor ability to perform with pain reported). 4. Pt will initiate program/self care in gym setting. Overhead Distribution Engineer Goals: 1. Strength L knee 5/5 ext/flexion. 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 Rise from half-kneel position L>R and R>L knee. 4. Negotiate stairs reciprocally with good dynamic balance. 5. Functional squat 3:3 trials with good weight shift and squat technique. Treatment Plan: Modalities to reduce pain, spasms and effusion. Manual therapy to restore motion and function. Therapeutic exercise to improve strength and flexibility. Neuromuscular re-education for posture and balance. Therapeutic activities to return to functional activities of daily living. Electronically signed by: Aixa Alvarenga, PT, DPT Please sign and return to therapist. Thank you for your referral.
--- NOTE | 2024-06-12 09:59 | MHC.PT.OD ---
[facility] Office [place] [facility] [place] [facility] [address] Tyson Villafuerte [address] [phone] F: [phone] F: [phone] F: [phone] F: [phone] Physical Therapy Daily Note Diagnosis: M23.92 Unspecified internal derangement of left knee, S83.242A, S83.242A Other tear of medial meniscsus, current injury, left knee encounter, Internal derangement of left knee *Tear of medial meniscus of left knee, 1-2 session with HEP signed by SHIRA Nelson 04/24/24. Medial menisectomy and chrondroplasty left knee DOS 04/15/24 Date of Surgery: 04/15/24 Date of Evaluation: 05/18/24 Date of Treatment: 06/12/24 Treatments to Date: Cancellations to Date: No Shows to Date: Authorized Visits: 6 Insurance End Date: Precautions/ Contraindications:Medial menisectomy and chrondroplasty left knee 04/15/24, Dr. Caban Subjective: Pt expresses working out in the gym yesterday, did the leg press, upper body, and bike. Pain Score and Location: 6 Objective Flowsheet: Tests & Measures AROM -5 to 110. L knee supra patella 47.0, jt line 43.5 R knee supra patella 45.0, jt line 42.0 Pt expressing soreness rated 6/10. In AM step downs expresses knee is stiff but overall states he can do stair with noted discomfort. Exercises SCI-FIT bike x 10 minutes seat seat #9 educated re: gentle support for home/self care with level 3.0 Seated HS Stretch x 60 sec hold x 4R each side, seated gastroc stretch with strap x 60 seconds x 4R each side, Standing TKE with GTB x 2 sets 10R, isometric QS with towel roll x 5 sec hold, isometric QS without towel roll x 5 sec hold, passive knee extension stretch with towel roll under ankle. Education re: CFM/ completed IASTM for scar massage with fingers however pt expressing sharp zinger pain radiating up to thigh with attempt of IASTM over medial incision. [facility] [address] [place] [address] Office Visit Report Signed Patient: Heath Babin MMR#: [id number] : 1970Acct:[id number] Age/Sex: 53 / MADM/SER Date: 05/21/24 Loc: JJ.HOSADM/SER Time:1214 Attending Provider: July Webb PA-C cc: Rodrigo Fam PA-C~ Vital Signs 05/21/24 12:33 Height 6 ft Weight 286 lb BMI 38.8 Intake Visit Reasons: PO- LT knee 04/15/24 NE Intake Note: Heath a 53 year old male who presents today for a post operative s/p left knee medial meniscectomy and chondroplasty 04/15/24 NE. Patient reports he has completed his course of antibiotics. He start PT and was advised to stop warm compress and to switch to cool compress due to wound healing. Patient expresses pain on the anterior aspect of the knee. He says today he experienced some numbness. Ambulation of stairs exacerbates his pain. Ambulation on leveled ground does not affect him. Allergies No Known Allergies Allergy (Verified 05/21/24 12:34) Medication List - Last Reconciled 05/21/24 by July Webb PA-C celecoxib 200 mg PO BID citalopram 20 mg PO DAILY hydrocodone-acetaminophen 5-325 mg 1 tab PO Q8H PRN 7 days semaglutide (weight loss) (Wegovy) mg subcut zolpidem 10 mg PO BEDTIME PRN HPI HPI PO- LT knee 04/15/24 NE: Details: 53-year-old gentleman returns to the office today status post left knee arthroscopy April [address] Caban. States he still has very minimal swelling around the medial portal site. No redness no drainage. He is working with physical therapy. 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 No active drainage. swelling has improved. No flatulence, no purulence. ROM is 0-95 degrees. Calf supple, nontender. NVI. Assessment & Plan Assessment & Plan (1) Status post arthroscopy of left knee: Code(s): Z98.890 - Other specified postprocedural states Category: Surgical Plan: Reassurance given that things are healing well. I feel as though he has some scar tissue around portal site. No evidence of infection. He will continue to work with physical therapy and return to see us back in 4 weeks for potential return to work, sooner if needed. Coding Level of Care Code Global (66215) Diagnoses Status post arthroscopy of left knee Z98.890 Documented By:July WebbC12/06/02 1221 Signed By:<Electronically signed by July Webb>05/21/24 1259 <Electronically signed by Cat King>05/21/24 1308 Modalities Assessment: 06/12/24: Pt expressing worsening sx since last session, reports walking and putting away Gio decorations (up and down stairs). Presents today with increased edema L knee (see measurements above). Pt rates pain as 6/10 medial incision. Pt educated re: refraining leg press machine. Passive knee extension stretch with towel roll under ankle with ice x 10 minutes at end of session. Reiterated the importance of hamstring and calf stretches to tolerance frequently throughout the day (eased sx with completion today). 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 Therapy has been addressing concern for scar tissue at site of incision however he expresses sharp radiating nerve like pain which travels up his lateral thigh when instrument assisted soft tissue massage is completed. He has been trialed with taping to ease edema/pain however it has not adhered well or long standing to his knee. Pt is scheduled for [facility] orthopedics appt on 06/18/23. Additional auth of PT 2x/week x 2 weeks was received 06/12/24. Will await plan re: [facility] orthopedics re: status after appt on 06/18/24. 06/09/24; Improved AROM in L Knee ext today, better tolerance for passive knee ext slight pocket edema noted medial incision. Positive response to tape trial, reapplied today. Pt will have reassessment with [facility] ortho on 06/18/23. Pt will benefit from 2x x week x 2 weeks until that time. (End date was through 06/10/24). Pt remains OOW. Pt AROM 0 to 115, AAROM flexion to 125. Still having pain and unable to kneel. :Pt lacking full knee extension, small egg/edema over anterior medial incision. AAROM flexion to 125. Pt to see orthopedics on 06/18/23. Reiterated the importance of not pushing into pain with [facility] tasks. Educated re: passive knee extension stretch. 06/01/24: Pt has near full extension. AAROM flexion to 125, AROM 115. Pt requesting to hold wall squat (was causing his back to spasm). Pt has been going to the gym bike, leg press etc discussed no deep bends/painful activity. Educated and encouraged icing of knee daily post therex. 05/28/24: Pt exhibits AROM -5 to 115, post AAROM 0 to 125. Pt remains OOW. Was seen by orthopedics, next follow up with orthopedics on 06/18/23. 06/01/24: Near full extension, pt encouraged to perform CFM over incision. Pt inquires about recovery time-lines, encouraged ongoing icing and listening to knee. No exercises should be causing pain in the knee. He requested to DC wall squat due to surge of back spasming. 05/22/24 Pt cancelled appt at 09:00am due to being home with a sick child. Was seen by orthopedics yesterday for a follow up (see notes below). [facility] [address] [place] [address] Office Visit Report Signed Patient: Heath Babin MMR#: [id number] : 1970Acct:[id number] Age/Sex: 53 / MADM/SER Date: 05/21/24 Loc: HO.HOSADM/SER Time:1214 Attending Provider: July Webb PA-C cc: Rodrigo Fam PA-C~ Vital Signs 05/21/24 12:33 Height 6 ft Weight 286 lb BMI 38.8 Intake Visit Reasons: PO- LT knee 04/15/24 NE Intake Note: Heath a 53 year old male who presents today for a post operative s/p left knee medial meniscectomy and chondroplasty 04/15/24 NE. Patient reports he has completed his course of antibiotics. He start PT and was advised to stop warm compress and to switch to cool compress due to wound healing. Patient expresses pain on the anterior aspect of the knee. He says today he experienced some numbness. Ambulation of stairs exacerbates his pain. Ambulation on leveled ground does not affect him. Allergies No Known Allergies Allergy (Verified 05/21/24 12:34) Medication List - Last Reconciled 05/21/24 by July Webb PA-C celecoxib 200 mg PO BID citalopram 20 mg PO DAILY hydrocodone-acetaminophen 5-325 mg 1 tab PO Q8H PRN 7 days semaglutide (weight loss) (Wegovy) mg subcut zolpidem 10 mg PO BEDTIME PRN HPI HPI PO- LT knee 04/15/24 NE: Details: 53-year-old gentleman returns to the office today status post left knee arthroscopy April [address] Caban. States he still has very minimal swelling around the medial portal site. No redness no drainage. He is working with physical therapy. 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 No active drainage. swelling has improved. No flatulence, no purulence. ROM is 0-95 degrees. Calf supple, nontender. NVI. Assessment & Plan Assessment & Plan (1) Status post arthroscopy of left knee: Code(s): Z98.890 - Other specified postprocedural states Category: Surgical Plan: Reassurance given that things are healing well. I feel as though he has some scar tissue around portal site. No evidence of infection. He will continue to work with physical therapy and return to see us back in 4 weeks for potential return to work, sooner if needed. Coding Level of Care Code Global (14668) Diagnoses Status post arthroscopy of left knee Z98.890 Documented By:July Webb/06/02 1221 Signed By:<Electronically signed by July Webb>05/21/24 1259 <Electronically signed by Cat King>05/21/24 1308 PT Plan: 2x/week x 3 weeks; gentle AAROM knee extension>flexion, gentle quad and strengthening program to tolerance. Follow up with ortho on , 06/28/23. Short Term Goals: 1. L knee AROM 0 degrees extension. (IR: -5 to 120) 2. L knee AROM 120 degrees flexion with sx <2/10 L knee. (IR: -5 to 120 sx end range). 3. Complete SLR with good control (IR: Poor ability to perform with pain reported). 4. Pt will initiate program/self care in gym setting. [facility] Goals: 1. Strength L knee 5/5 ext/flexion. 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 Rise from half-kneel position L>R and R>L knee. 4. Negotiate stairs reciprocally with good dynamic balance. 5. Functional squat 3:3 trials with good weight shift and squat technique. Electronically signed by: Aixa Alvarenga, PT, DPT
--- NOTE | 2024-07-10 12:27 | MHC.PT.OD ---
[facility] [place] Office [place] Office [place] Office [address] Tyson Villafuerte [address] [phone] F: [phone] F: [phone] F: [phone] F: [phone] Physical Therapy Daily Note Diagnosis: M23.92 Unspecified internal derangement of left knee, S83.242A, S83.242A Other tear of medial meniscsus, current injury, left knee encounter, Internal derangement of left knee *Tear of medial meniscus of left knee, 1-2 session with HEP signed by SHIRA Nelson 04/24/24. Medial menisectomy and chrondroplasty left knee DOS 04/15/24 Date of Surgery: 04/15/24 Date of Evaluation: 05/18/24 Date of Treatment: 07/10/24 Treatments to Date: 5 Cancellations to Date: No Shows to Date: Authorized Visits: 12 Insurance End Date: 08/06/24 Precautions/ Contraindications:Medial menisectomy and chrondroplasty left knee 04/15/24, Dr. Caban New auth: 06/25/24- 08/06/24: 3x/week x 4 weeks left knee pain GCS: claim: [id number] Subjective: Pt states has been sore but doing better since flare earlier in the week with side step exercise. Pain Score and Location: 6 L MED/ANT KNEE Objective Flowsheet: Tests & Measures Jul IS FU WITH ORTHO Exercises SCI-FIT bike x 12 minutes seat seat #10 level 2. for warm-up. PAIN LEVEL THE SAME WITH BIKE Standing mini squat rows with GTB x 2 set 10R, tandem step stance for shoulder rows with GTB x 10R, L>R/R>L/ mini squat, hip abd step out with combo single UE shoulder extension L>R and R>L x 2 sets 10R, facing away from band, mini squat stance for chest press/pushout with GTB x 2 [id number], AAROM heel slide with strap to 128 degrees, education for self care/ progression icing and CKC for home. WOBBLE BOARD A/P AND LAT X 1 MIN EA FOR PROPRIOCEPTION WORK x 2 rounds, Verbal review of stretching program HS/Calf for self care at home REPORTS HAS HAD TRIAL KT WITHOUT RELIEF [facility] [address] [place] [address] Drive [address] [place] [address] Office Visit Report Signed Patient: Heath Babin MMR#: [id number] : 1970Acct:[id number] Age/Sex: 53 / MADM/SER Date: 06/18/24 Loc: HO.HOSADM/SER Time:1121 Attending Provider: July Webb PA-C cc: Rodrigo Fam PA-C~ Vital Signs 06/18/24 11:36 Height 6 ft Weight 286 lb BMI 38.8 Intake Visit Reasons: PO- LT knee 04/15/24 NE Intake Note: Heath is a 53 year old male who presents today for a post operative visit s/p LT knee on 04/15/24. Patient reports he is doing well, states tenderness at incision site. He has been attending PT and has concerns of flexibility. He states he is not able to kneel down. Allergies No Known Allergies Allergy (Verified 06/18/24 11:38) Medication List - Last Reconciled 06/18/24 by July Webb PA-C celecoxib 200 mg PO BID citalopram 20 mg PO DAILY semaglutide (weight loss) (Wegovy) mg subcut zolpidem 10 mg PO BEDTIME PRN HPI HPI PO- LT knee 04/15/24 NE: Details: 53-year-old gentleman returns to the office today 2 months status post left knee arthroscopy with Dr. Caban on 04/15/2024. The patient continues to work with physical therapy but continues to experience some tenderness along the portal sites of the knee. He also experiences some limitations with extension and flexion. He also experiences difficulty with bending down or going up and downstairs. States he has been working with physical therapy to improve this. He remains out of work. 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 There is some tenderness over the patellar tendon of the left knee. He also has tenderness along the medial portal site. No active drainage. swelling has improved. No flatulence, no purulence. ROM is 0-95 degrees. Calf supple, nontender. NVI. Assessment & Plan Assessment & Plan (1) Status post arthroscopy of left knee: Code(s): Z98.890 - Other specified postprocedural states Category: Surgical (2) Patellofemoral arthritis of left knee: Code(s): M17.12 - Unilateral primary osteoarthritis, left knee Category: Medical Plan Dr. Caban was available to see the patient with me today. A lengthy discussion was had with the patient and his in the office today about the extent of his discomfort and findings intraoperatively. While we were able to treat the meniscus tear medially, he appears to be struggling and continuing to heal from the arthritis within the knee. It is typical to have an arthritic flare after a knee arthroscopy. Reassurance given that he is within the normal limits of postoperative healing and while this is taking longer than expected our goal is to continue with physical therapy, anti-inflammatory use, activity modification. At this time he will continue to remain out of work and will see us back in [address] Caban for reassessment. Coding Level of Care Code Global (69138) Diagnoses Status post arthroscopy of left knee Z98.890 Modalities Passive knee ext with heel prop x five minutes at end of session towel roll under ankle Assessment: 07/10/24: Pt progressing with tolerance CKC, report of muscle fatigue no sx in knee joint verbalized. Did have irritation of HEP program earlier in the week which appears better today. AAROM flexion to 128 degrees. Follow up with [facility] ortho on 07/15/24. Pt is progressing slowly in tolerance for CKC. 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 Pt has been averaging 2-3x/week with PT sessions due to several cancellation of sick children, but he has been active in gym setting using bike as tolerated as well. CHALLENGED WITH BAL/PROP WORK, REPORTS MM FATIGUE BUT NO SIGNIF JT PAIN PT Plan: Increase frequency to 3x/week x 6 weeks; gentle AAROM knee extension>flexion, gentle quad and strengthening program to tolerance. Follow up with ortho 07/16/24. Short Term Goals: 1. L knee AROM 0 degrees extension. (IR: -5 to 120) 2. L knee AROM 120 degrees flexion with sx <2/10 L knee. (IR: -5 to 120 sx end range). 3. Complete SLR with good control (IR: Poor ability to perform with pain reported). 4. Pt will initiate program/self care in gym setting. Shelter Goals: 1. Strength L knee 5/5 ext/flexion. 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 Rise from half-kneel position L>R and R>L knee. 4. Negotiate stairs reciprocally with good dynamic balance. 5. Functional squat 3:3 trials with good weight shift and squat technique. Electronically signed by: Aixa Alvarenga, PT, DPT
--- NOTE | 2024-08-04 11:38 | MHC.PT.DC ---
[facility] [place] Office [place] Office [place] Office [address] Tyson Villafuerte [address] [phone] F: [phone] F: [phone] F: [phone] F: [phone] Physical Therapy Discharge Report Diagnosis: M23.92 Unspecified internal derangement of left knee, S83.242A, S83.242A Other tear of medial meniscsus, current injury, left knee encounter, Internal derangement of left knee *Tear of medial meniscus of left knee, 1-2 session with HEP signed by SHIRA Nelson 04/24/24. Medial menisectomy and chrondroplasty left knee DOS 04/15/24 Date of Surgery: 04/15/24 Date of Evaluation: 05/18/24 Date of Discharge: 08/04/24 Treatments to Date: 14 Cancellations to Date: 11 No Shows to Date: Discharge Status: Discharge Summary: Pt cancelled last few weeks of therapy. He was last seen in the office on 07/15/24 expressing he was electing to transfer to [facility] site upon [place] office moving to [place]. Therapist later spoke to patient on the phone who stated he did not wish to move to [facility] and wanted to stay in [facility]. Pt has since cancelled all of his appts through the [employer] portal and he has not returned phone calls made to him x 3. Pt cancelled appts in PT on 06/18/24, 06/19/24, 06/29/24, 07/07/24, 07/13/24, 07/20/24, 07/22/24, 07/24/24 and 07/30/24. It is unclear as to why patient has not returned calls back to therapy office. Pt did express history of sickness for his children and himself a few weeks ago. Pt is scheduled to see [facility] ortho 09/03/24. DC due to lack of follow up calls/return to therapy after episode of sickness. 07/24/24: Pt booked for today at 8:00am last week. Pt did not show for appt. Later found out patient did cancel on [employer] portal yesterday at 1:00PM. Patient stated over the phone last week he was going away for kid vacation week and did not book for any further appt this week. Therapist called patient who did not answer. 07/24/24: Pt cancelled appt. (Cancelled all week). Therapist called patient in effort to reach out, LM on voicemail requesting callback. [place] notes history of children being sick last week during a call taken. Pt called back at 12:00 noon to say his kids were sick and it moved through his house where he was sick as well. Electronically signed by: Aixa Alvarenga, PT, DPT Please sign and return to therapist. Thank you for your referral.
== END 2024-10-05 11:17 | disposition home or self-care (01) ==
LOC: HO.PTS 09:00
PROVIDERS: PCP Physician Assistant; Visit Provider Orthopaedic Surgery
DX: M23.92 Unspecified internal derangement of left knee (principal); S83.242D Other tear of medial meniscus, current injury, left knee, subsequent encounter; Z98.890 Other specified postprocedural states
CPT/HCPCS: 97110; 97140; 97161; 97164; 97530; 97535

== ENCOUNTER 2024-09-03 09:28 | Outpatient (AMB) | payer OTHER, SELFPAY ==
[2024-09-03 09:57] VITALS: BMI 38.8
--- NOTE | 2024-09-03 09:57 | MHC.OFFVIS ---
Vital Signs 09/03/24 09:57 Height 6 ft Weight 286 lb BMI 38.8 Intake Visit Reasons: OV- LT knee 04/15/24 NE Intake Note: Heath is a 54 year old male who presents today for a follow up of his left knee s/p Left Knee Medial Meniscectomy and Chondroplasty 04/15/2024. At this time he remains out of work but he is hopeful to be cleared today. Patient reports that he is doing well he has no concerns at this time. Allergies No Known Allergies Allergy (Verified 09/03/24 09:59) HPI HPI OV- LT knee 04/15/24 NE: Details: Heath is a 54 year old male who presents today for a follow up of his left knee s/p Left Knee Medial Meniscectomy and Chondroplasty 04/15/2024. At this time he remains out of work but he is hopeful to be cleared today. Patient reports that he is doing well he has no concerns at this time. The patient is a 54-year-old male presenting for a follow-up assessment post left knee procedure. There is a notable improvement from the initial presentation, wherein the patient reports that the previous bump has resolved, and the knee feels satisfactory during movement. The left knee condition necessitated surgical intervention, and now, during the post-operative phase, the patient is observing continued improvement with increased mobility and functionality. 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 Although he mentioned the recovery was somewhat extended, his current activity level reflects progressive healing. 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 Reports indicate a resolution of the initial condition, with successful functional outcomes achieved. The patient feels ready to resume his occupational duties. Continued adherence to post-operative care instructions remains essential to ensure sustained recovery. No additional diagnostics or interventions are needed at this time. Patient was informed and verbally consented to the use of an ambient scribe for clinic note documentation during this visit. During today's visit, we discussed the patient's recovery progress from left knee surgery. I am pleased to note that the patient is experiencing significant improvement, with the previous bump having resolved and full movement restored. 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 We did not identify any immediate need for further testing or interventions, consistent with the current state of recovery. I will continue to monitor his progress with the expectation of full recovery. - Continue with prescribed rehabilitation exercises - Monitor for any new knee symptoms or changes in mobility - Resume work duties as able, within comfort and safety thresholds - Follow up with any concerning developments or recurrence of symptoms - Maintain regular follow-up appointments to assess ongoing recovery progress (2) Status post arthroscopy of left knee: Code(s): Z98.890 - Other specified postprocedural states Category: Surgical Plan: Coding Level of Care Code Est Pt Level 3 (12564) Diagnoses Patellofemoral arthritis of left knee M17.12 Status post arthroscopy of left knee Z98.890
== END 2024-09-03 10:14 | disposition home or self-care (01) ==
LOC: HO.HOS 09:29
PROVIDERS: PCP Physician Assistant; Visit Provider Orthopaedic Surgery
DX: S83.242D Other tear of medial meniscus, current injury, left knee, subsequent encounter (principal); M17.12 Unilateral primary osteoarthritis, left knee; Z04.2 Encounter for examination and observation following work accident
CPT/HCPCS: 99213

== ENCOUNTER → 2024-09-03 09:28 | Outpatient (BNVA) | payer OTHER, SELFPAY | PROVIDERS: PCP Physician Assistant; Visit Provider Orthopaedic Surgery | DX: M17.12 Unilateral primary osteoarthritis, left knee (principal); Z98.890 Other specified postprocedural states | CPT/HCPCS: 99212 ==